=== PATIENT | female | born 1980 | race Caucasian/White ===

== ENCOUNTER 2017-03-13 13:59 | Inpatient (IN) ==
[2017-03-13 16:25] LABS: Amphetamine Screen,Urine Negative ng/mL (Cutoff=1000); Barbiturate Screen,Urine Negative ng/mL (Cutoff=200); Benzodiazepines Screen,Urine Negative ng/mL (Cutoff=200); Cannabinoid Screen,Urine Negative ng/mL (Cutoff = 50); Cocaine Screen,Urine Negative ng/mL (Cutoff= 300); Opiate Screen,Urine Negative ng/mL (Cutoff=300); Phencyclidine Screen,Urine Negative ng/mL (Cutoff=25)
[2017-03-13] MEDS ORDERED: 0.9 % Sodium Chloride 1,000 ML ONE (16:27)
[2017-03-13] MEDS: 0.9 % Sodium Chloride 1,000 ML IVC SCH (16:33)
[2017-03-13] MEDS ORDERED: Naloxone 0.4 MG/ML INJ IVP PRN (16:50)
[2017-03-13] MEDS ORDERED: *HR* Morphine 2 MG/ML SYRINGE IVP PRN (16:50)
[2017-03-13] MEDS ORDERED: Vancomycin 1,250 MG in D5% in Water 250 ML IVPB SCH (17:00)
--- NOTE | 2017-03-13 17:13 | Pulmonology Consult Note ---
Date of Encounter: 03/13/17 Time of Encounter: 17:11 Assessment and Plan (1) Abnormal CT scan, chest Current Visit: Yes Status: Acute Findings of the CT scan of the lower chest are highly suggestive of an consistent with septic emboli. More likely, this is due to skin portal of entry and given this patient's history, highly suspicious for IV drug abuse. Patient may also have bilateral complicated pleural effusions and/or eileen empyemas. I agree with the provision of broad-spectrum antimicrobial agents. Echocardiography and lower venous duplex studies ordered for further evaluation. The patient will likely require bilateral thoracenteses. If the patient continues to note back pain, dedicated MR of the spine may be necessary in order to exclude paraspinal abscesses or vertebral osteomyelitis. Continue all other supportive medical measures. Valery Merida [phone] Code(s): R93.8 - Abnormal findings on diagnostic imaging of other specified body structures SNOMED Code(s): 736377590 History of Present Illness Consult date: 03/13/17 Chief complaint: Cough, dyspnea, abnormal chest CT scan History of present illness: This 36-year-old female who swears that she does not utilize IV drugs but has a history of the same reportedly was found minimally responsive in the home setting, the etiology of the circumstances is entirely unclear. Nonetheless, she was brought to the hospital. Imaging studies were obtained predominantly of the abdomen and pelvis given complaints at the time of her admission to the hospital of back and abdominal pain. Imaging studies revealed bilateral pleural effusions which were concerning for possible empyema given the presence of air and multiple cavitary parenchymal lesions peripherally located within the lower lung zones highly suggestive of an consistent with septic emboli. Given these findings, pulmonary consultation was requested. Patient is extremely hard of hearing. She admits to cough, mild dyspnea, generalized fatigue, pain particularly in the back region (lower back) and leg weakness. She denies loss of sensation in her feet or legs. She denies hemoptysis. Past Med Surg Social Fam HX - Past Medical History Medical history: hepatitis Psychiatric history: anxiety, depression - Past Surgical History Surgical History: - Social History Smoking Status: Current every day smoker Smokeless Tobacco Status: No Alcohol use: none Drug use: none Medications and Allergies No Known Home Drugs 03/13/17 [History] Allergies No Known Allergies Allergy (Verified 05/05/15 15:19) All Systems: A 10-system review of systems was performed and is negative for pertinent findings except as documented above in the HPI. - Constitutional Constitutional: as per HPI - Respiratory Respiratory: as per HPI Physical Examination Vital Signs: Vital Signs, Last 4 Hours Pulse Resp BP 03/13/17 15:50 91 17 97/57 General appearance: no acute distress, other (Minimally Very hard of hearing Valeria vitals reviewed) Eyes: nonicteric ENT: oropharynx moist Neck: supple Auscultation: bilateral: diminished breath sounds Cardiovascular: regular rate and rhythm, murmur noted (Faint systolic murmur) Gastrointestinal: normoactive bowel sounds, non-distended Integumentary: other (Note multiple tattoos, areas of vitiligo over the face and upper chest region.) Extremities: no cyanosis, no edema normal mental status, non-focal exam Results - Clinical Findings Intake & Output: Intake & Output 03/13/17 03/13/17 03/13/17 07:59 15:59 23:59 Weight 77.2 kg Consult Discharge Plan - Plan Referrals: NO,PCP [Primary Care Provider] -
[2017-03-13] MEDS: Ketorolac 30 MG/ML VIAL IVP PRN (17:18)
--- NOTE | 2017-03-13 17:48 | Internal Med History&Physical ---
Date of Encounter: 03/13/17 Time of Encounter: 16:00 Assessment and Plan (1) Empyema Current visit: Yes Status: Acute Patient presented with fever, chills, generalized weakness, meets sepsis criteria. CT chest done in the emergency room shows bilateral loculated pleural effusion, possible empyema along with cavitary lesions suggestive of septic emboli. Patient denies history of IV drug abuse, although this is likely. Urine drug screen currently negative. Continue IV vancomycin and Zosyn. Follow-up blood cultures. Check 2-D echocardiogram for possible endocarditis. Pulmonology consulted, consult appreciated-agree with current management. Patient will likely require bilateral thoracentesis. High risk for complications including worsening sepsis and septic shock. (2) DVT (deep venous thrombosis) Current visit: Yes Status: Acute CT abdomen shows changes suggestive of possible right internal iliac vein thrombophlebitis/cellulitis. Will check venous Doppler of lower extremities to rule out DVT and CT angiogram of chest to evaluate for pulmonary embolism. Patient did receive a therapeutic dose of subcutaneous Lovenox in the emergency room. Qualifiers: DVT location: lower extremity Affected thrombotic vein of extremity: iliac Chronicity: acute Laterality: right Qualified Code(s): I82.421 - Acute embolism and thrombosis of right iliac vein (3) Back pain Current visit: Yes Status: Acute Patient has acute low back pain along with left leg weakness, which could be related to fracture subsequent to her mechanical fall. Need to rule out seeding /infectious etiology- paraspinal abscess/vertebral osteomyelitis. Check CT thoracic and lumbar spine. Pain control with when necessary IV Toradol and morphine. Qualifiers: Back pain location: low back pain Chronicity: acute Back pain laterality : midline Sciatica presence: without sciatica Qualified Code(s): M54.5 - Low back pain (4) Sepsis Current visit: Yes Status: Acute Patient presented with fever, tachycardia, leukocytosis with abnormal CT chest and possible bilateral empyema. IV hydration. Broad-spectrum IV antibiotics as above. Follow-up blood cultures. Lactic acid within normal limits. Qualifiers: Sepsis type: sepsis due to unspecified organism Qualified Code(s): A41.9 - Sepsis, unspecified organism (5) Hepatitis C Current visit: Yes Status: Chronic Liver enzymes noted to be mildly elevated. Check hepatitis profile. Treatment naive. Qualifiers: Viral hepatitis chronicity: chronic Hepatic coma status: without hepatic coma Qualified Code(s): B18.2 - Chronic viral hepatitis C Internal Medicine - H&P: HPI Chief complaint: Generalized weakness Admitted From: Emergency Dept Plans for Post Hospital Care: Transfer Inp Rehab Fac History of present illness: Ms. Silva is a 36 year old female with h/o- Hep C and remote IVDU was brought in by EMS with complaints of generalized weakness, fever and dehydration. Patient was evaluated at [facility] emergency room and was transferred to our facility for higher level of care. Patient reports having sustained a mechanical fall while at her mother's place, about 10 days ago and reports having subjective fever and chills for 10-12 days associated initially with nausea, vomiting. She also reports intermittent cough and she gradually became weaker and was unable to ambulate independently. She finally continued to stay in bed as she was too weak to get out of bed or call for help. She stayed this way for 2-3 days until her family had to break in and called EMS today. She has chronic hearing loss and left-sided facial weakness that is related to her multiple bilateral ear surgeries for cholesteatomas. She reports severe low back pain along with left leg weakness. No paresthesias, headache, blurred vision, arm weakness. She further denies IV drug abuse despite multiple enquiries; she did have h/o substance use in the past but has been sober for the last 5years. Patient reportedly was noted to be in extremely poor hygiene at the time of presentation with severe dehydration, dry mucous membranes, noted to be in dried -up feces per emergency room records. Past Med Surg Social Fam HX - Past Medical History Medical history: hepatitis (Hep C) Psychiatric history: anxiety, depression - Past Surgical History Surgical History: , cholecystectomy - Social History Smoking Status: Current every day smoker Packs per day: 1.5 Smokeless Tobacco Status: No Alcohol use: none Drug use: none, prescription drug abuse (Percocet) Occupational status: unemployed Current living situation: Home - Independent Activity Level: Independent ambulation Recent Out of Country Travel Within the Last 8 Weeks: No - Family History Father Hx Family Respiratory Disorders: Yes (DVT, PE) Internal Medicine - H&P: Meds No Known Home Drugs 03/13/17 [History] Allergies No Known Allergies Allergy (Verified 05/05/15 15:19) All Systems PM: A 10-system review of systems was performed and is negative for pertinent findings except as documented above in the HPI. - Constitutional Constitutional: chills, fever(s), malaise, weakness - EENT Eyes: no change in vision, no discharge, no pain, no photophobia Ears: decreased hearing Nose, mouth and throat: no dysphagia, no nasal discharge, no neck pain, no sore throat - Cardiovascular Cardiovascular ROS IM: chest pain - Respiratory Respiratory: dyspnea - Gastrointestinal Gastrointestinal: nausea, vomiting - Genitourinary Genitourinary: no change in urinary stream, no dysuria, no flank pain, no hematuria - Musculoskeletal Musculoskeletal ROS IM: no numbness, no tingling - Integumentary Integumentary IM: no rash, no unusual bruising - Neurological Neurological ROS: headache(s), numbness, weakness - Hematologic/Lymphatic Hematologic/Lymphatic: no easy bruising - Constitutional Vitals: Pulse Resp BP 91 17 97/57 03/13/17 15:50 03/13/17 15:50 03/13/17 15:50 General appearance: Present: A&O X 3, answers questions appropriately - Respiratory Respiratory exam: Present: CTAB (coarse breath sounds B/L bases). Absent: accessory muscle use, rales, rhonchi, wheezes - Cardiovascular Cardiovascular exam: Present: RRR, +S1, +S2. Absent: diastolic murmur, gallop, rubs, systolic murmur - GI/Abdominal GI/Abdominal exam: Present: normal bowel sounds, soft, no peritoneal signs. Absent: distended, tenderness - Extremities Exam Extremities exam: Present: full ROM (decreased in left LE due to weakness), warm , radial pulses palpable and symetrical. Absent: calf tenderness, cyanotic, pedal edema - Back Exam Back exam: Present: vertebral tenderness (point tenderness over lower thoracic/ upper lumbar area; no focal swelling/erythema) - Neurological Exam Neurological exam: Present: CN II-XII intact (left-sided facial weakness with partial ptosis), oriented X3, no focal deficits (left LE- 1-2/5 motor power), facial droop. Absent: pronater drift, speech deficit Additional comments: difficult to elicit deep tendon reflexes B/L - Skin Skin exam: Present: dry, intact Internal Med - H&P Results - EKG Data -: EKG Interpreted by Myself EKG shows normal: sinus rhythm Rate: normal
[2017-03-13] MEDS: Vancomycin 1,250 MG in D5% in Water 250 ML IVPB SCH (17:51)
[2017-03-13] MEDS: Acetaminophen 325 MG TABLET PO PRN (23:02)
[2017-03-14] MEDS ORDERED: 0.9 % Sodium Chloride 1,000 ML IVC ONE (04:13)
[2017-03-14] MEDS: 0.9 % Sodium Chloride 1,000 ML IVC SCH ×4 (04:20→23:34)
[2017-03-14] MEDS: Vancomycin 1,250 MG in D5% in Water 250 ML IVPB SCH ×2 (05:24→19:13)
[2017-03-14 06:47] LABS: Basophils % 0.1 %; Eosinophils # 0.1 K/mcL (0.0-0.6); Eosinophils % 0.2 %; Hematocrit 26.2 % (35.3-44.9); Hemoglobin 8.8 g/dL (11.5-15.4); Immature Granulocytes % 1.4 % (0-4); Lymphocytes # 0.6 K/mcL (0.6-4.6); Lymphocytes % 2.7 %; Mean Corpuscular HGB Conc 33.6 g/dL (31.6-35.5); Mean Corpuscular Hemoglobin 27.8 pg (28.0-33.3); Mean Corpuscular Volume 82.9 fL (83.0-100.0); Mean Platelet Volume 10.4 fL (9.4-12.4); Monocytes # 0.8 K/mcL (0.0-1.3); Monocytes % 3.8 %; Neutrophils # 18.4 K/mcL (1.6-8.9); Platelet Count 205 K/mcL (140-400); Red Blood Count 3.16 M/mcL (3.82-4.97); Red Cell Distribution Width 14.3 % (11.5-14.5); Segmented Neutrophils % 91.8 %
[2017-03-14 07:29] LABS: BUN/Creatinine Ratio 23 (6-26); Blood Urea Nitrogen 14 mg/dL (7-20); Calcium 7.3 mg/dL (8.6-10.8); Carbon Dioxide 20 mEq/L (19-29); Chloride 101 mEq/L (98-109); Glucose 60 mg/dL (70-99); Magnesium 1.9 mg/dL (1.6-2.6); Osmolality,Calculated 272 (280-300); Potassium 4.1 mEq/L (3.5-4.5); Sodium 132 mEq/L (136-145); eGFR For African Americans > 60 (> 60); eGFR For Non-African Americans > 60 (> 60)
[2017-03-14 07:30] LABS: Hepatitis A Antibody IgM Nonreactive (Nonreactive); Hepatitis B Core IgM Nonreactive (Nonreactive); Hepatitis B Surface Antigen Nonreactive (Nonreactive)
[2017-03-14] MEDS: Ketorolac 30 MG/ML VIAL IVP PRN (08:53)
[2017-03-14] MEDS ORDERED: *HR* OxyCODONE Immed Rel 5 MG TABLET PO PRN (08:58)
--- NOTE | 2017-03-14 11:49 | Pulmonology Progress Note ---
Date of Encounter: 03/14/17 Time of Encounter: 08:25 Assessment and Plan (1) Abnormal CT scan, chest Current Visit: Yes Status: Acute Findings from review of the chest CT scan which include multiple cavitary parenchymal lung nodules as well as bilateral pleural effusions in this patient with tricuspid valve vegetation are all likely manifestations of right-sided endocarditis. Blood cultures are pending. Be reasonable to perform thoracentesis and obviously, if the patient has evidence of empyema then she will require bilateral chest tube placement which could all be performed by interventional radiology. Adjust antibiotic therapy depending upon results of cultures. Management reviewed with the primary service. Valery Merida [phone] Code(s): R93.8 - Abnormal findings on diagnostic imaging of other specified body structures SNOMED Code(s): 784431398 Subjective Principal diagnosis: Abnormal chest CT scan Interval history: Patient notes persisting back chest pain. She notes persisting fatigue and malaise. She denies expectoration of bloody or purulent secretions. Overnight , no acute issues reported per discussion with nursing staff. Comprehensive systems review otherwise unremarkable except for those features as noted above. Objective PUL Vital signs: Last Vital Signs Temp 97.9 F 03/14/17 11:02 Pulse 74 03/14/17 11:02 Resp 15 03/14/17 11:02 BP 87/58 03/14/17 11:02 Pulse Ox 100 03/14/17 11:02 General appearance: no acute distress Eyes: nonicteric ENT: oropharynx moist Neck: no lymphadenopathy Auscultation: bilateral: diminished breath sounds Cardiovascular: murmur noted Gastrointestinal: normoactive bowel sounds, non-distended Integumentary: normal, other (Multiple tattoos vitiligo) Extremities: no cyanosis Musculoskeletal: no deformities normal mental status, non-focal exam Results - Laboratory Findings CBC and BMP: 03/14/17 05:23 03/14/17 05:23 Abnormal lab findings: Abnormal lab results WBC 20.1 K/mcL (4.3-11.1) H 03/14/17 05:23 RBC 3.16 M/mcL (3.82-4.97) L 03/14/17 05:23 Hgb 8.8 g/dL (11.5-15.4) L 03/14/17 05:23 Hct 26.2 % (35.3-44.9) L 03/14/17 05:23 MCV 82.9 fL (83.0-100.0) L 03/14/17 05:23 MCH 27.8 pg (28.0-33.3) L 03/14/17 05:23 Neutrophils # 18.4 K/mcL (1.6-8.9) H 03/14/17 05:23 Sodium 132 mEq/L (136-145) L 03/14/17 05:23 Glucose 60 mg/dL (70-99) L 03/14/17 05:23 Calculated Osmolality 272 (280-300) L 03/14/17 05:23 Calcium 7.3 mg/dL (8.6-10.8) L 03/14/17 05:23 - Clinical Findings Intake & Output: Intake & Output 03/13/17 03/14/17 03/14/17 23:59 07:59 15:59 Intake Total 250 / 250 1000 / 1000 720 / 720 Output Total 1100 / 1100 Balance 250 / 250 -100 / -100 720 / 720 Weight 78.5 kg Consult Discharge Plan - Plan Referrals: Afsaneh Worley, BREAD SLICER MACHINE [Advanced Practice Nurse] - 03/21/17 9:15 am (PLEASE TAKE WITH YOU TO YOUR APPOINTMENT A MONTH'S WORTH OF INCOME, THEY DO A SLIDING SCALE OF WHAT YOU WOULD HAVE TO PAY. PLEASE SHOW UP 20 MINS. EARLY FOR YOUR APPOINTMENT TO FILL OUT PAPER WORK. IF YOU NEED TO CANCEL PLEASE CALL [phone] WITH IN 24 HOURS OF YOUR APPOINTMENT TIME.)
--- NOTE | 2017-03-14 11:55 | Infectious Disease Consult ---
Date of Encounter: 03/14/17 Time of Encounter: 11:54 Infectious Disease HPI - Data of Consult Patient: new to practice Consult date: 03/14/17 Requesting Physician: Charmaine Schulz Primary Care Provider: PCP NO - Consult Narrative Reason for consult: loculated pleural effusions, lung cavitary lesions, septic emboli. History of present illness: Ms. Silva is a 36 year old female who was admitted to [facility] on 03/13/17 for Sepsis, and suspected septic emboli of the lungs. Ms. Silva is a 36 y.o. female who admits to a history of polysubstance abuse with most recent episode of IVDA 1-2 months ago with black tar heroin. Since admission her Tmax has been 99.9, however her temperature was 101.7 in the ER in [place]. She would also have a WBC count of 20.1 She would have tachycardia as high as 138 and hypotension with systolic blood pressure as low as 87 CC: Charmaine Schulz Past Med Surg Social Fam HX - Past Medical History Medical history: hepatitis (Hep C) Psychiatric history: anxiety, depression - Past Surgical History Surgical History: , cholecystectomy - Social History Smoking Status: Current every day smoker Packs per day: 1.5 Smokeless Tobacco Status: No Alcohol use: none Drug use: none, prescription drug abuse (Percocet) - Family History Father Hx Family Respiratory Disorders: Yes (DVT, PE) Infectious Disease-CN:Meds No Known Home Drugs 03/13/17 [History] Allergies No Known Allergies Allergy (Verified 05/05/15 15:19) Exam - Constitutional Vitals: Temp Pulse Resp BP Pulse Ox 97.9 F 74 15 87/58 100 03/14/17 11:02 03/14/17 11:02 03/14/17 11:02 03/14/17 11:02 03/14/17 11:02 Infectious Disease CN: Results - Labs CBC & Chem 7: 03/14/17 05:23 03/14/17 05:23 Serology: Serology 03/14/17 Range/Units 05:23 Hepatitis A IgM Ab Nonreactive (Nonreactive) Hep Bs Antigen Nonreactive (Nonreactive) Hep B Core IgM Ab Nonreactive (Nonreactive) Consult Discharge Plan - Plan Referrals: Afsaneh Worley, PHARMACEUTICAL SALES REPRESENTATIVE [Advanced Practice Nurse] - 03/21/17 9:15 am (PLEASE TAKE WITH YOU TO YOUR APPOINTMENT A MONTH'S WORTH OF INCOME, THEY DO A SLIDING SCALE OF WHAT YOU WOULD HAVE TO PAY. PLEASE SHOW UP 20 MINS. EARLY FOR YOUR APPOINTMENT TO FILL OUT PAPER WORK. IF YOU NEED TO CANCEL PLEASE CALL [phone] WITH IN 24 HOURS OF YOUR APPOINTMENT TIME.)
[2017-03-14 12:21] LABS: INR 1.9; Prothrombin Time 20.8 Seconds (9.4-12.1)
--- NOTE | 2017-03-14 13:46 | IR Procedure Note ---
Date of procedure: 03/14/17 Consent Obtained: Verbal consent Timeout: Correct patient and procedure verified, Correct site verified, Time out performed, Skin prep completed Local anesthetic: Lidocaine 1% Indications: Bilateral pleural effusions Procedure Performed: Right thoracentesis Complications: None; Tolerated procedure well (Left thoracentesis tomorrow.)
[2017-03-14] MEDS: Piperacillin/Tazobactam 3.375 GM in D5% in Water (Mini-Bag+) 100 ML IVPB SCH ×2 (14:25→22:05)
--- NOTE | 2017-03-14 14:50 | Infectious Disease Consult ---
Date of Encounter: 03/14/17 Time of Encounter: 14:43 Assessment and Plan (1) Severe sepsis Status: Acute Assessment and plan: The patient had four SIRS criteria plus hypotension and elevated liver enzymes on admission. Likely secondary to bacteremia and endocarditis. Improved. The patient has been afebrile since admission. She continues to have tachycardia and intermittent tachypnea. WBC is trending down. Blood cultures drawn 03/13/17 are positive 2/2 sets for MRSA. (2) Bacteremia Status: Acute Assessment and plan: Causative organism MRSA. Source likely IV drug use. Complicated due to septic emboli in the lungs. Blood cultures drawn 03/13/17 are positive 2/2 sets for MRSA per PCR. The patient has one major and two minor Modified Lares's Criteria. TTE completed 03/13/17 showed a mobile echodensity on the tricuspid valve consistent with vegetation. Repeat blood cultures x 2 sets in the morning. Continue Vancomycin IV. Pharmacy to dose. Goal trough ~15. Discontinue Zosyn. Duration of treatment depends on the clinical picture, but likely 6 weeks of IV antibiotics due to the endocarditis. Monitor renal function and for drug toxicity and dose-adjust antibiotics. (3) Infective endocarditis Status: Acute Assessment and plan: Causative organism MRSA. TTE completed 03/13/17 showed mobile echodensity on the tricuspid valve consistent with vegetation. Likely secondary to MRSA bacteremia. Antibiotic recommendations as above. Qualifiers: Infective endocarditis organism: bacterial Chronicity: acute Qualified Code(s): I33.0 - Acute and subacute infective endocarditis (4) Septic embolism Status: Acute Assessment and plan: CT scan of the chest shows bilateral pulmonary nodules with central cavitation concerning for septic emboli versus atypical infection. Pulmonology consulted and following. Feels that given the clinical picture, these nodules are likely septic emboli. Continue antibiotics as above. (5) Loculated pleural effusion Status: Acute Assessment and plan: CT of the chest shows a moderate right and small left pleural effusions that are partially loculated. IR consulted. Plan for right thoracentesis later today and left thoracentesis tomorrow. Please send pleural fluid for cell count with differential, anaerobic and aerobic cultures, protein, and LDH. Asked the IR nurse and the patient's primary nurse to both ensure the specimen is sent down for analysis. Pulmonology consulted and following. (6) Myositis Status: Acute Assessment and plan: Location: Right piriformis muscle. CT of the abdomen and pelvis shows right piriformis myositis. Continue antibiotics as above. Qualifiers: Myositis type: infective Myositis location: other site Qualified Code(s) : M60.08 - Infective myositis, other site (7) Elevated transaminase level Status: Acute Assessment and plan: Etiology unclear: Chronic Hep C. vs. acute infection vs. other. Continue to trend. Consider GI consult for further evaluation. (8) Back pain Status: Acute Assessment and plan: Likely secondary to right piriformis myositis. C-spine and L-spine CT scans negative for abscess. Pain management per the primary team. Qualifiers: Back pain location: low back pain Chronicity: acute Back pain laterality : midline Sciatica presence: without sciatica Qualified Code(s): M54.5 - Low back pain (9) Hepatitis C Status: Chronic Qualifiers: Viral hepatitis chronicity: chronic Hepatic coma status: without hepatic coma Qualified Code(s): B18.2 - Chronic viral hepatitis C (10) IV drug user Status: Chronic Assessment and plan: Check HIV. Known Hep C positive. Hep A and Hep B non-reactive. Infectious Disease HPI - Data of Consult Patient: new to practice Consult date: 03/14/17 Requesting Physician: Charmaine Schulz Primary Care Provider: PCP NO - Consult Narrative Reason for consult: MRSA bacteremia History of present illness: Ms. Silva is a 36 year old female with past medical history of hep C, anxiety , and depression. The patient was admitted to the hospital March 13 for empyema, pulmonary abscess, and sepsis. We are consulted March 14 for further evaluation and treatment recommendations regarding MRSA bacteremia. Patient is a 36-year-old female with past medical history as stated above. The patient presented to the emergency department at [facility] after she called EMS with complaints of fever and severe back pain and weakness for about 2 weeks prior to admission that had continued to get worse. Upon arrival, the patient had a fever 101.7. She was tachycardic and tachypneic and have leukocytosis with neutrophilic predominance. Additional laboratory studies revealed elevated bilirubin at 2.3 with mildly elevated liver enzymes. Lactic acid was normal. A chest x-ray completed in the emergency department showed bilateral lung infiltrates with suspected bilateral pleural effusions. A CT the abdomen and pelvis was also completed that showed bibasilar cavitary pulmonary nodules, more prominent on the left concerning for septic emboli, moderate loculated right effusion, and mild left loculated effusion consistent with empyema. Her also findings consistent with right piriformis myositis and a right hemipelvic soft tissue induration concerning for cellulitis or possible internal iliac vein DVT with thrombophlebitis. A dedicated CT of the chest was completed that was negative for pulmonary embolism, but did show bilateral pulmonary nodules with central cavitation concerning for septic emboli versus atypical infection such as tuberculosis. Additionally, there was a moderate right and small left pleural effusion that appears to be partially loculated. Blood cultures were obtained in the emergency department prior to the initiation of IV antibiotics. Additionally, urinalysis was obtained that revealed pyuria, but her urine culture was negative. The patient was transferred here to [facility] for further evaluation and treatment. Since admission, the patient has undergone bilateral lower extremity venous Dopplers that were negative for DVT. Her blood cultures have come back + 2 out of 2 sets for MRSA per PCR. The patient has been complaining of lower back pain, therefore, dedicated L-spine and C-spine CAT scans were done and were negative for any infectious etiology. Transthoracic echocardiogram revealed a mobile echodensity on the tricuspid valve consistent with a vegetation. Pulmonology has been consulted and is following. The patient is scheduled for thoracentesis later today. Since admission, the patient's white blood cell count started trending down. She has been afebrile, but continues to have tachycardia. Lactic acid remains normal. Hepatitis A and B profiles are nonreactive. The patient does state that she doesn't feel much better overall. Currently, the patient is on IV vancomycin and IV Zosyn. We've been asked to evaluate and make further recommendations. During my exam today, the patient endorses a history as stated above. She states that over the past 2 weeks she is progressively had worsening weakness to the point where she couldn't get out of bed, back pain, and fevers with chills, rigors, night sweats. She reports poor appetite and states she didn't eat or drink anything for about 4 days. She denies any chest pain, but does report some shortness of breath and a dry cough. She denies any nausea, vomiting , diarrhea, or constipation. She denies abdominal pain. She claims of pain in the middle to right side of her lower back that is nonradiating. She denies pain anywhere other joints. She denies oral thrush or any skin lesions. She his report a history of IV drug use, but states that she is not been on any IV drugs for several months. CC: Charmaine Schulz Past Med Surg Social Fam HX - Past Medical History Attestation: Yes The following information was validated with the patient. Source: patient, old records reviewed, nursing notes reviewed Medical history: hepatitis (Hep C) Psychiatric history: anxiety, depression - Past Surgical History Surgical History: , cholecystectomy - Social History Smoking Status: Current every day smoker Packs per day: 1.5 Smokeless Tobacco Status: No Alcohol use: none Drug use: none, prescription drug abuse (Percocet) Occupational status: unemployed Current living situation: Home - Independent Activity Level: Independent ambulation Recent Out of Country Travel Within the Last 8 Weeks: No Exposure or Possible Exposure to Illness During Travel: No - Family History Father Hx Family Respiratory Disorders: Yes (DVT, PE) Infectious Disease-CN:Meds No Known Home Drugs 03/13/17 [History] Allergies No Known Allergies Allergy (Verified 05/05/15 15:19) All systems: reviewed and no additional remarkable complaints except as stated Exam - Constitutional Vitals: Temp Pulse Resp BP Pulse Ox 97.9 F 72 15 87/58 100 03/14/17 11:02 03/14/17 11:42 03/14/17 11:02 03/14/17 11:02 03/14/17 11:02 General appearance: average body habitus, cooperative, no acute distress Exam: Ill-appearing, but nontoxic. - Head Head exam: Present: atraumatic, normal inspection, normocephalic - Eye Eye exam: Present: EOMI, normal appearance, PERRL Pupils: Present: normal accommodation Additional comments: No subconjunctival hemorrhage noted. - ENT ENT exam: Present: mucous membranes moist - Neck Neck exam: Present: normal inspection - Respiratory Respiratory exam: Present: decreased breath sounds (I lateral bases), CTAB. Absent: rales, respiratory distress, rhonchi, wheezes - Cardiovascular Cardiovascular exam: Present: +S1, +S2, tachycardia. Absent: diastolic murmur, irregular rhythm, systolic murmur - GI/Abdominal GI/Abdominal exam: Present: normal bowel sounds, soft. Absent: distended, tenderness - Extremities Exam Extremities exam: Present: normal inspection. Absent: joint swelling, pedal edema, tenderness Additional comments: No endocarditis stigmata noted. - Back Exam Back exam: Present: normal inspection, paraspinal tenderness (Right lumbar spine ). Absent: vertebral tenderness - Neurological Exam Neurological exam: Present: alert, oriented X3, no focal deficits - Psychiatric Psychiatric exam: Present: normal affect, normal mood - Skin Skin exam: Present: dry, intact, normal color, warm Infectious Disease CN: Results - Labs CBC & Chem 7: 03/14/17 05:23 03/14/17 05:23 Serology: Serology 03/14/17 Range/Units 05:23 Hepatitis A IgM Ab Nonreactive (Nonreactive) Hep Bs Antigen Nonreactive (Nonreactive) Hep B Core IgM Ab Nonreactive (Nonreactive) Consult Discharge Plan - Plan Referrals: Afsaneh Worley CNP [Advanced Practice Nurse] - 03/21/17 9:15 am (PLEASE TAKE WITH YOU TO YOUR APPOINTMENT A MONTH'S WORTH OF INCOME, THEY DO A SLIDING SCALE OF WHAT YOU WOULD HAVE TO PAY. PLEASE SHOW UP 20 MINS. EARLY FOR YOUR APPOINTMENT TO FILL OUT PAPER WORK. IF YOU NEED TO CANCEL PLEASE CALL [phone] WITH IN 24 HOURS OF YOUR APPOINTMENT TIME.) - Attending Attestation I examined this patient and my medical decision-making was reviewed with the Resident Physician. I agree with the documented findings, disposition and treatment plan as described except to the extent set forth below. This is an addendum to original report dictated by Shira Sawyer CNP, please refer to Bettie sanabria for full detail. Patient is a 36-year-old woman with past medical history mentioned below was admitted with altered mental status and severe sepsis. Workup revealed MRSA bacteremia. A CT of the chest showed multiple septic emboli to the chest. Patient also had bilateral pleural effusion that was tapped it. Patient was also found to have myositis of the right piriformis muscle. A TTE was done and showed a mobile echodensity on the tricuspid valve consistent with vegetation. We were consulted to evaluate the patients make further recommendations. Patient has been on vancomycin. Today patient appears ill. Toxic laying in bed but awake and alert and oriented. 400 and endocarditis on the aortic valve likely causative organism is MRSA we will need to treat with vancomycin for at least 6 weeks. Once blood cultures clear patient will need a PICC line placement. While on vancomycin we will need to do weekly CBC, BMP and vancomycin trough. Goal vancomycin trough 15-20. Well continue to follow closely.
[2017-03-14] MEDS ORDERED: *HR* Dextrose 50 % in Water (Syg) 50 ML SYRINGE IVP PRN (14:55)
[2017-03-14] MEDS ORDERED: D5% in Water 1,000 ML IVC PRN (14:55)
[2017-03-14] MEDS ORDERED: Dextrose Gel 15 GM PO PRN ×2 (14:55)
[2017-03-14] MEDS ORDERED: *HR* Heparin 5,000 UNIT/ML VIAL SQ SCH (16:00)
--- NOTE | 2017-03-14 16:43 | Internal Med Progress Note ---
Date of Encounter: 03/14/17 Time of Encounter: 08:15 - Assessment and plan (1) Severe sepsis Current Visit: Yes Status: Acute Assessment and plan: 36-year-old female with past medical history hepatitis C, mood disorder and prior use of IV drugs. Per patient, she has not use drugs in several years. She presented with generalized weakness. CT chest showed moderate right and small left pleural effusion, appeared to be partially loculated. Cardiac revealed a mobile echodensity on the tricuspid valve consistent with vegetation. Blood cultures are positive for GPC, PCR shows MRSA. CT of the abdomen and pelvis revealed a right piriformis muscle myositis. Source is infective endocarditis, MRSA bacteremia, located pleural effusion, myositis. Appreciate pulmonology and ID input. Plan for thoracentesis today. Continue empiric antibiotics with IV vancomycin. Continue IV fluid hydration. Repeat blood cultures in the morning. (2) Septic embolism Current Visit: Yes Status: Acute Assessment and plan: Plan as above. (3) Infective endocarditis Current Visit: Yes Status: Acute Assessment and plan: Plan as above. Qualifiers: Infective endocarditis organism: bacterial Chronicity: acute Qualified Code(s): I33.0 - Acute and subacute infective endocarditis (4) Bacteremia Current Visit: Yes Status: Acute Assessment and plan: Plan as above. (5) Loculated pleural effusion Current Visit: Yes Status: Acute Assessment and plan: Plan as above. (6) Elevated transaminase level Current Visit: Yes Status: Acute Assessment and plan: Secondary to severe sepsis. Closed monitor LFTs. (7) Myositis Current Visit: Yes Status: Acute Assessment and plan: Right piriform muscle myositis. As above. Qualifiers: Myositis type: infective Myositis location: other site Qualified Code(s) : M60.08 - Infective myositis, other site (8) DVT (deep venous thrombosis) Current Visit: Yes Status: Acute Assessment and plan: CT of the abdomen and pelvis revealed suspected internal iliac vein thrombophlebitis. Start Lovenox. Qualifiers: DVT location: lower extremity Affected thrombotic vein of extremity: iliac Chronicity: acute Laterality: right Qualified Code(s): I82.421 - Acute embolism and thrombosis of right iliac vein (9) IV drug user Current Visit: Yes Status: Chronic Assessment and plan: Check HIV. (10) Hepatitis C Current Visit: Yes Status: Chronic Qualifiers: Viral hepatitis chronicity: chronic Hepatic coma status: without hepatic coma Qualified Code(s): B18.2 - Chronic viral hepatitis C - Subjective Interval history: Patient reports pain all over. - Constitutional Vitals: Temp Pulse Resp BP Pulse Ox 97.4 F L 86 16 92/59 94 03/14/17 15:17 03/14/17 15:17 03/14/17 15:17 03/14/17 15:17 03/14/17 15:17 General appearance: Present: A&O X 3, answers questions appropriately - Respiratory Respiratory exam: Present: decreased breath sounds (At lower lung bases.) - Cardiovascular Cardiovascular exam: Present: RRR - GI/Abdominal GI/Abdominal exam: Present: normal bowel sounds, soft. Absent: distended, tenderness - Extremities Exam Extremities exam: Absent: pedal edema - Back Exam Back exam: Present: paraspinal tenderness - Neurological Exam Neurological exam: Present: alert, oriented X3, no focal deficits, strengths equal and symetr throughout. Absent: facial droop, speech deficit Internal Medicine: Result - Labs CBC & Chem 7: 03/14/17 05:23 03/14/17 05:23 Labs: Short CBC 03/14/17 Range/Units 05:23 WBC 20.1 H (4.3-11.1) K/mcL Hgb 8.8 L (11.5-15.4) g/dL Hct 26.2 L (35.3-44.9) % Plt Count 205 (140-400) K/mcL Neutrophils # 18.4 H (1.6-8.9) K/mcL BMP 03/14/17 05:23 Sodium 132 L Potassium 4.1 Chloride 101 Carbon Dioxide 20 BUN 14 Creatinine 0.62 Glucose 60 L Calcium 7.3 L Cardiac Enzymes 03/13/17 03/14/17 03/14/17 Range/Units 17:07 01:10 05:23 Troponin I 0.00 0.01 0.01 (0-0.03) ng/mL - ABG Interpretation ABG results: PT/INR, D-dimer PT 20.8 Seconds (9.4-12.1) H 03/14/17 06:45 - Impressions Impressions Chest CTA 03/13/17 19:00 IMPRESSION: 1. No evidence of pulmonary thromboembolism. 2. Numerous scattered bilateral pulmonary nodules many of which demonstrate central cavitation. The differential includes septic pulmonary emboli and atypical infection such as tuberculosis. Cavitary metastatic disease is considered less likely given the patient's age. 3. Moderate right and small left pleural effusions that may be partially loculated with empyema not excluded. D/ / Alex Medrano MD / Alex Medrano MD Interpreting Provider: Alex Medrano MD Lumbar Spine CT 03/13/17 19:00 IMPRESSION: There is an old left L2 transverse process fracture. Fracture deformity of the left L3 transverse process is noted as well. The without callus formation, the possibility of an acute fracture at this level should be considered. No additional acute osseous abnormality noted Soft tissues and canal limited due to images presented on PACs in the bone algorithm only. D/ / Kem Hodgson / Kem Hodgson Interpreting Provider: Kem Hodgson Thoracic Spine CT 03/13/17 19:00 IMPRESSION: Unremarkable CT of the thoracic spine. D/ / Jose L Fonseca MD / Jose L Fonseca MD Interpreting Provider: Jose L Fonseca MD Thoracentesis Ultrasound 03/14/17 09:59 IMPRESSION: 1. Successful ultrasound guided right thoracentesis. D/ / Perry Corbett MD / Perry Corbett MD Interpreting Provider: Perry Corbett MD Chest X-Ray 03/14/17 13:48 IMPRESSION: 1. No pneumothorax. 2. Unchanged bilateral pulmonary nodular opacities and pleural effusions. D/ / Alex Medrano MD / Alex Medrano MD Interpreting Provider: Alex Medrano MD Consult Discharge Plan - Plan Referrals: Afsaneh Worley, FIRE EQUIPMENT OPERATOR [Advanced Practice Nurse] - 03/21/17 9:15 am (PLEASE TAKE WITH YOU TO YOUR APPOINTMENT A MONTH'S WORTH OF INCOME, THEY DO A SLIDING SCALE OF WHAT YOU WOULD HAVE TO PAY. PLEASE SHOW UP 20 MINS. EARLY FOR YOUR APPOINTMENT TO FILL OUT PAPER WORK. IF YOU NEED TO CANCEL PLEASE CALL [phone] WITH IN 24 HOURS OF YOUR APPOINTMENT TIME.)
[2017-03-14] MEDS: *HR* Enoxaparin 80 MG/0.8 ML SYRINGE SQ SCH (17:14)
[2017-03-14] MEDS: *HR* OxyCODONE Immed Rel 5 MG TABLET PO PRN (17:14)
[2017-03-14] MEDS: Acetaminophen 325 MG TABLET PO PRN (20:01)
[2017-03-14] MEDS ORDERED: *HR* LORazepam 2 MG/ML VIAL IVP ONE (20:16)
[2017-03-14] MEDS ORDERED: *HR* LORazepam 2 MG/ML VIAL ONE (20:23)
[2017-03-15] MEDS: *HR* OxyCODONE Immed Rel 5 MG TABLET PO PRN ×2 (04:04→12:24)
[2017-03-15] MEDS: Vancomycin 1,500 MG in D5% in Water 250 ML IVPB SCH ×2 (05:53→17:35)
[2017-03-15] MEDS: Acetaminophen 325 MG TABLET PO PRN ×3 (05:54→22:34)
[2017-03-15] MEDS: Piperacillin/Tazobactam 3.375 GM in D5% in Water (Mini-Bag+) 100 ML IVPB SCH (05:54)
[2017-03-15] MEDS: *HR* Enoxaparin 80 MG/0.8 ML SYRINGE SQ SCH ×2 (05:54→17:35)
[2017-03-15 06:53] LABS: Alanine Aminotransferase 62 Units/L (0-55); Albumin/Globulin Ratio 0.3 (1.1-2.2); Alkaline Phosphatase 213 Units/L (38-126); Aspartate Amino Transferase 97 Units/L (5-34); BUN/Creatinine Ratio 24 (6-26); Bilirubin,Direct 0.8 mg/dL (0.0-0.5); Bilirubin,Indirect 0.3 mg/dL (0.0-1.2); Bilirubin,Total 1.1 mg/dL (0.2-1.2); Blood Urea Nitrogen 13 mg/dL (7-20); Calcium 7.5 mg/dL (8.6-10.8); Carbon Dioxide 27 mEq/L (19-29); Chloride 102 mEq/L (98-109); Globulin 4.3 g/dL (2.4-3.5); Glucose 90 mg/dL (70-99); Osmolality,Calculated 274 (280-300); Phosphorous 2.6 mg/dL (2.3-4.7); Potassium 3.5 mEq/L (3.5-4.5); Sodium 132 mEq/L (136-145); Total Protein 5.5 g/dL (6.0-8.3); eGFR For African Americans > 60 (> 60); eGFR For Non-African Americans > 60 (> 60)
[2017-03-15 06:56] LABS: Albumin 1.2 g/dL (3.5-5.0)
[2017-03-15 06:57] LABS: Hematocrit 24.9 % (35.3-44.9); Hemoglobin 8.2 g/dL (11.5-15.4); Mean Corpuscular HGB Conc 32.9 g/dL (31.6-35.5); Mean Corpuscular Hemoglobin 27.8 pg (28.0-33.3); Mean Corpuscular Volume 84.4 fL (83.0-100.0); Mean Platelet Volume 10.8 fL (9.4-12.4); Platelet Count 227 K/mcL (140-400); Red Blood Count 2.95 M/mcL (3.82-4.97); Red Cell Distribution Width 14.6 % (11.5-14.5)
[2017-03-15 08:10] LABS: Lymphocytes # 2.3 K/mcL (0.6-4.6); Neutrophils # 26.1 K/mcL (1.6-8.9); Platelet Estimate Normal (Normal)
[2017-03-15 08:11] LABS: Burr Cells 1+ (Not Present); Toxic Granulation Present (Not Present)
[2017-03-15] MEDS: 0.9 % Sodium Chloride 1,000 ML IVC SCH (11:11)
--- NOTE | 2017-03-15 11:46 | Infectious Disease Progress No ---
Date of Encounter: 03/15/17 Time of Encounter: 11:44 - Assessment and Plan (1) Severe sepsis Current Visit: Yes Status: Acute The patient had four SIRS criteria plus hypotension and elevated liver enzymes on admission. Likely secondary to bacteremia and endocarditis. She was afebrile last night with Tmax 102.7. She continues to have tachycardia and intermittent tachypnea. WBC is worse this morning. Blood cultures drawn 03/13/17 are positive 2/2 sets for MRSA. Repeat blood cultures drawn this morning are pending x 2 sets. (2) Bacteremia Current Visit: Yes Status: Acute Causative organism MRSA. Source likely IV drug use. Complicated due to septic emboli in the lungs. Blood cultures drawn 03/13/17 are positive 2/2 sets for MRSA per PCR. The patient has two major and two minor Modified Lares's Criteria. TTE completed 03/13/17 showed a mobile echodensity on the tricuspid valve consistent with vegetation. Repeat blood cultures x 2 sets this morning are pending. Continue Vancomycin IV. Pharmacy to dose. Goal trough ~15. Most recent vanc trough 10.9. Will request pharmacy assist with dosing. Duration of treatment depends on the clinical picture, but likely 6 weeks of IV antibiotics due to the endocarditis. Monitor renal function and for drug toxicity and dose-adjust antibiotics. (3) Infective endocarditis Current Visit: Yes Status: Acute Causative organism MRSA. TTE completed 03/13/17 showed mobile echodensity on the tricuspid valve consistent with vegetation. Likely secondary to MRSA bacteremia. Antibiotic recommendations as above. Qualifiers: Infective endocarditis organism: bacterial Chronicity: acute Qualified Code(s): I33.0 - Acute and subacute infective endocarditis (4) Septic embolism Current Visit: Yes Status: Acute CT scan of the chest shows bilateral pulmonary nodules with central cavitation concerning for septic emboli versus atypical infection. Pulmonology consulted and following. Feels that given the clinical picture, these nodules are likely septic emboli. Continue antibiotics as above. (5) Loculated pleural effusion Current Visit: Yes Status: Acute CT of the chest shows a moderate right and small left pleural effusions that are partially loculated. IR consulted. Status post right thoracentesis 03/14/17. 450ml red fluid drained per IR nurse notes. Please send pleural fluid for cell count with differential , anaerobic and aerobic cultures, protein, and LDH --> orders in, but not marked that the specimen was received. Called Oscar in [facility] who states he does have the specimen and will go ahead and run it now. Left thoracentesis cancelled due to the fact that it is very small. Pulmonology consulted and following. (6) Myositis Current Visit: Yes Status: Acute Location: Right piriformis muscle. CT of the abdomen and pelvis shows right piriformis myositis. Continue antibiotics as above. Qualifiers: Myositis type: infective Myositis location: other site Qualified Code(s) : M60.08 - Infective myositis, other site (7) Elevated transaminase level Current Visit: Yes Status: Acute Etiology unclear: Chronic Hep C. vs. acute infection vs. other. Continue to trend. Consider GI consult for further evaluation. (8) Back pain Current Visit: Yes Status: Acute Likely secondary to right piriformis myositis. C-spine and L-spine CT scans negative for abscess. Patient continues to complain of severe pain that makes it difficult for her to get out of bed or move. Get MRI of the L-spine to evaluate. Pain management per the primary team. Qualifiers: Back pain location: low back pain Chronicity: acute Back pain laterality : midline Sciatica presence: without sciatica Qualified Code(s): M54.5 - Low back pain (9) Hepatitis C Current Visit: Yes Status: Chronic Qualifiers: Viral hepatitis chronicity: chronic Hepatic coma status: without hepatic coma Qualified Code(s): B18.2 - Chronic viral hepatitis C (10) IV drug user Current Visit: Yes Status: Chronic Check HIV --> ordered yesterday but not ran. Discussed with lab personnel. Known Hep C positive. Hep A and Hep B non-reactive. - Subjective Interval history: Patient seen and examined. No acute events noted overnight. Patient states that overall she feels pretty poorly. She reports fevers and chills and rigors overnight. She denies any headache or neck pain. She denies any chest pain, shortness of breath, or cough. She denies any nausea, vomiting, diarrhea, or constipation. She denies abdominal pain and states she was able eat breakfast this morning. She denies any urinary complaints and has a Bernard catheter remains patent. Her only real complaint is severe bilateral lower back pain that makes it difficult for her to get comfortable in bed. She denies any oral thrush or new skin lesions. Infect Dis PN-Objective Data - Labs CBC & Chem 7: 03/15/17 05:47 03/15/17 05:47 Labs: Laboratory Results - last 24 hr 03/14/17 03/14/17 03/15/17 06:45 17:31 05:47 WBC 28.4 H RBC 2.95 L Hgb 8.2 L Hct 24.9 L MCV 84.4 MCH 27.8 L MCHC 32.9 RDW 14.6 H Plt Count 227 MPV 10.8 Seg Neutrophils % 82.0 Band Neutrophils % 10.0 H Lymphocytes % 8.0 Neutrophils # 26.1 H Lymphocytes # 2.3 Toxic Granulation Present A Platelet Estimate Normal Rew Cells 1+ A PT 20.8 H INR 1.9 Sodium Potassium Chloride Carbon Dioxide BUN Creatinine Est GFR ( Amer) Est GFR (Non-Af Amer) BUN/Creatinine Ratio Glucose Calculated Osmolality Calcium Phosphorus Total Bilirubin Direct Bilirubin Indirect Bilirubin AST ALT Alkaline Phosphatase Serum Total Protein Albumin Globulin Albumin/Globulin Ratio Vancomycin Trough 10.9 03/15/17 05:47 WBC RBC Hgb Hct MCV MCH MCHC RDW Plt Count MPV Seg Neutrophils % Band Neutrophils % Lymphocytes % Neutrophils # Lymphocytes # Toxic Granulation Platelet Estimate Milagro Cells PT INR Sodium 132 L Potassium 3.5 Chloride 102 Carbon Dioxide 27 BUN 13 Creatinine 0.55 L Est GFR ( Amer) > 60 Est GFR (Non-Af Amer) > 60 BUN/Creatinine Ratio 24 Glucose 90 Calculated Osmolality 274 L Calcium 7.5 L Phosphorus 2.6 Total Bilirubin 1.1 D Direct Bilirubin 0.8 H Indirect Bilirubin 0.3 AST 97 H ALT 62 H Alkaline Phosphatase 213 H Serum Total Protein 5.5 L D Albumin 1.2 L Globulin 4.3 H Albumin/Globulin Ratio 0.3 L Vancomycin Trough Cultures: Serology 03/14/17 Range/Units 05:23 Hepatitis A IgM Ab Nonreactive (Nonreactive) Hep Bs Antigen Nonreactive (Nonreactive) Hep B Core IgM Ab Nonreactive (Nonreactive) - Impressions Impressions Thoracentesis Ultrasound 03/14/17 09:59 IMPRESSION: 1. Successful ultrasound guided right thoracentesis. D/ / Perry Corbett MD / Perry Corbett MD Interpreting Provider: Perry Corbett MD Chest X-Ray 03/14/17 13:48 IMPRESSION: 1. No pneumothorax. 2. Unchanged bilateral pulmonary nodular opacities and pleural effusions. D/ / Alex Medrano MD / Alex Medrano MD Interpreting Provider: Alex Medrano MD Exam - Constitutional Vitals: Temp Pulse Resp BP Pulse Ox 98.2 F 116 18 102/56 96 03/15/17 07:18 03/15/17 07:18 03/15/17 07:18 03/15/17 07:18 03/15/17 07:18 General appearance: average body habitus, cooperative, no acute distress - Head Head exam: Present: atraumatic, normal inspection, normocephalic Additional comments: Ill-appearing, but not toxic. - Eye Eye exam: Present: EOMI, normal appearance, PERRL Pupils: Present: normal accommodation Additional comments: No subconjunctival hemorrhage noted. - ENT ENT exam: Present: mucous membranes moist - Neck Neck exam: Present: normal inspection - Respiratory Respiratory exam: Present: CTAB. Absent: rales, respiratory distress, rhonchi, wheezes - Cardiovascular Cardiovascular exam: Present: +S1, +S2, tachycardia - GI/Abdominal GI/Abdominal exam: Present: normal bowel sounds, soft. Absent: distended, tenderness Additional comments: Bernard catheter noted to be patent draining dark yellow urine. - Extremities Exam Extremities exam: Present: normal inspection. Absent: joint swelling, pedal edema, tenderness Additional comments: No endocarditis stigmata noted. - Back Exam Additional comments: Patient declined back exam due to severe pain with movement. - Neurological Exam Neurological exam: Present: alert, oriented X3, no focal deficits - Psychiatric Psychiatric exam: Present: normal affect, normal mood - Skin Skin exam: Present: dry, intact, normal color, warm Consult Discharge Plan - Plan Referrals: Afsaneh Worley, QUALITY REP [Advanced Practice Nurse] - 03/21/17 9:15 am (PLEASE TAKE WITH YOU TO YOUR APPOINTMENT A MONTH'S WORTH OF INCOME, THEY DO A SLIDING SCALE OF WHAT YOU WOULD HAVE TO PAY. PLEASE SHOW UP 20 MINS. EARLY FOR YOUR APPOINTMENT TO FILL OUT PAPER WORK. IF YOU NEED TO CANCEL PLEASE CALL [phone] WITH IN 24 HOURS OF YOUR APPOINTMENT TIME.) - Attending Attestation I examined this patient and my medical decision-making was reviewed with the Resident Physician. I agree with the documented findings, disposition and treatment plan as described except to the extent set forth below.
[2017-03-15 12:33] LABS: Appearance of Pleural Fl Bloody (Clear)
[2017-03-15 12:37] LABS: LDH,Pleural Fluid 1016 Units/L (No Ref Range)
[2017-03-15 12:38] LABS: Total Protein,Pleural Fluid 3.3 g/dL (No Ref Range)
[2017-03-15 12:56] LABS: RBC,Pleural Fluid 0.091 M/mcL
[2017-03-15] MEDS: Ketorolac 30 MG/ML VIAL IVP PRN (13:59)
[2017-03-15 15:32] LABS: Hepatitis C Virus Antibody Reactive (Nonreactive)
--- NOTE | 2017-03-15 18:21 | Internal Med Progress Note ---
Date of Encounter: 03/15/17 Time of Encounter: 10:30 - Assessment and plan (1) Severe sepsis Current Visit: Yes Status: Acute Assessment and plan: 36-year-old female with past medical history hepatitis C, mood disorder and prior use of IV drugs. Per patient, she has not use drugs in several years. She presented with generalized weakness. CT chest showed moderate right and small left pleural effusion, appeared to be partially loculated. Cardiac revealed a mobile echodensity on the tricuspid valve consistent with vegetation. 03/13: Blood cultures are positive for GPC, PCR shows MRSA. CT of the abdomen and pelvis revealed a right piriformis muscle myositis. Source is infective endocarditis, MRSA bacteremia, located pleural effusion, myositis. 03/14: Patient underwent right-sided thoracentesis with removal of 450 ml of exudative pleural fluid. preliminary stain shows no bacteria. 03/15: blood cultures taken. sepsis has not resolved. febrile at 8pm (temp 102). WBC trended up to 28. Appreciate pulmonology and ID input. Continue empiric antibiotics with IV vancomycin. Continue IV fluid hydration. (2) Septic embolism Current Visit: Yes Status: Acute Assessment and plan: Plan as above. (3) Infective endocarditis Current Visit: Yes Status: Acute Assessment and plan: Plan as above. Qualifiers: Infective endocarditis organism: bacterial Chronicity: acute Qualified Code(s): I33.0 - Acute and subacute infective endocarditis (4) Bacteremia Current Visit: Yes Status: Acute Assessment and plan: Plan as above. (5) Loculated pleural effusion Current Visit: Yes Status: Acute Assessment and plan: Plan as above. (6) Elevated transaminase level Current Visit: Yes Status: Acute Assessment and plan: Secondary to severe sepsis. Closed monitor LFTs. (7) Myositis Current Visit: Yes Status: Acute Assessment and plan: Right piriform muscle myositis. As above. Qualifiers: Myositis type: infective Myositis location: other site Qualified Code(s) : M60.08 - Infective myositis, other site (8) DVT (deep venous thrombosis) Current Visit: Yes Status: Acute Assessment and plan: CT of the abdomen and pelvis revealed suspected internal iliac vein thrombophlebitis. Start Lovenox. Qualifiers: DVT location: lower extremity Affected thrombotic vein of extremity: iliac Chronicity: acute Laterality: right Qualified Code(s): I82.421 - Acute embolism and thrombosis of right iliac vein (9) IV drug user Current Visit: Yes Status: Chronic Assessment and plan: Check HIV. (10) Hepatitis C Current Visit: Yes Status: Chronic Qualifiers: Viral hepatitis chronicity: chronic Hepatic coma status: without hepatic coma Qualified Code(s): B18.2 - Chronic viral hepatitis C (11) Back pain Current Visit: Yes Status: Acute Assessment and plan: complained of severe back pain to ID team. MR lumbar spine to check for epidural abscess. Qualifiers: Back pain location: low back pain Chronicity: acute Back pain laterality : midline Sciatica presence: without sciatica Qualified Code(s): M54.5 - Low back pain - Subjective Interval history: Patient complains of pain on her site of thoracentesis. - Constitutional Vitals: Temp Pulse Resp BP Pulse Ox 97.5 F L 102 20 98/64 93 03/15/17 16:30 03/15/17 16:30 03/15/17 16:30 03/15/17 16:30 03/15/17 16:30 General appearance: Present: cooperative, A&O X 3, pleasant, no acute distress, answers questions appropriately - Respiratory Respiratory exam: Present: decreased breath sounds (at lower lung bases) - Cardiovascular Cardiovascular exam: Present: tachycardia - GI/Abdominal GI/Abdominal exam: Present: normal bowel sounds, soft. Absent: distended, tenderness - Extremities Exam Extremities exam: Absent: pedal edema - Neurological Exam Neurological exam: Present: alert, oriented X3. Absent: facial droop, speech deficit Internal Medicine: Result - Labs CBC & Chem 7: 03/15/17 05:47 03/15/17 05:47 Labs: Short CBC 03/15/17 Range/Units 05:47 WBC 28.4 H (4.3-11.1) K/mcL Hgb 8.2 L (11.5-15.4) g/dL Hct 24.9 L (35.3-44.9) % Plt Count 227 (140-400) K/mcL Neutrophils # 26.1 H (1.6-8.9) K/mcL BMP 03/15/17 05:47 Sodium 132 L Potassium 3.5 Chloride 102 Carbon Dioxide 27 BUN 13 Creatinine 0.55 L Glucose 90 Calcium 7.5 L Liver Function 03/15/17 Range/Units 05:47 Total Bilirubin 1.1 D (0.2-1.2) mg/dL Direct Bilirubin 0.8 H (0.0-0.5) mg/dL AST 97 H (5-34) Units/L ALT 62 H (0-55) Units/L Alkaline Phosphatase 213 H (38-126) Units/L Albumin 1.2 L (3.5-5.0) g/dL - ABG Interpretation ABG results: PT/INR, D-dimer PT 20.8 Seconds (9.4-12.1) H 03/14/17 06:45 Consult Discharge Plan - Plan Referrals: Afsaneh Worley, EDGER OPERATOR [Advanced Practice Nurse] - 03/21/17 9:15 am (PLEASE TAKE WITH YOU TO YOUR APPOINTMENT A MONTH'S WORTH OF INCOME, THEY DO A SLIDING SCALE OF WHAT YOU WOULD HAVE TO PAY. PLEASE SHOW UP 20 MINS. EARLY FOR YOUR APPOINTMENT TO FILL OUT PAPER WORK. IF YOU NEED TO CANCEL PLEASE CALL [phone] WITH IN 24 HOURS OF YOUR APPOINTMENT TIME.)
[2017-03-15] MEDS ORDERED: *HR* LORazepam 2 MG/ML VIAL IVP ONE (21:05)
[2017-03-15] MEDS ORDERED: *HR* LORazepam 2 MG/ML VIAL ONE (21:12)
[2017-03-16] MEDS: 0.9 % Sodium Chloride 1,000 ML IVC SCH ×3 (02:54→18:11)
[2017-03-16 05:21] LABS: Basophils % 0.2 %; Hemoglobin 7.4 g/dL (11.5-15.4)
[2017-03-16 05:23] LABS: Basophils # 0.1 K/mcL (0.0-0.2); Eosinophils # 0.1 K/mcL (0.0-0.6); Eosinophils % 0.3 %; Hematocrit 22.2 % (35.3-44.9); Immature Granulocytes % 3.4 % (0-4); Lymphocytes % 6.1 %; Mean Corpuscular HGB Conc 33.3 g/dL (31.6-35.5); Mean Corpuscular Hemoglobin 28.2 pg (28.0-33.3); Mean Corpuscular Volume 84.7 fL (83.0-100.0); Mean Platelet Volume 10.6 fL (9.4-12.4); Monocytes # 1.3 K/mcL (0.0-1.3); Neutrophils # 28.5 K/mcL (1.6-8.9); Platelet Count 259 K/mcL (140-400); Red Blood Count 2.62 M/mcL (3.82-4.97); Red Cell Distribution Width 14.9 % (11.5-14.5)
[2017-03-16 05:27] LABS: Alanine Aminotransferase 35 Units/L (0-55); Albumin/Globulin Ratio 0.3 (1.1-2.2); Alkaline Phosphatase 160 Units/L (38-126); Aspartate Amino Transferase 39 Units/L (5-34); BUN/Creatinine Ratio 16 (6-26); Bilirubin,Direct 0.7 mg/dL (0.0-0.5); Bilirubin,Indirect 0.3 mg/dL (0.0-1.2); Blood Urea Nitrogen 10 mg/dL (7-20); Calcium 7.3 mg/dL (8.6-10.8); Carbon Dioxide 30 mEq/L (19-29); Chloride 106 mEq/L (98-109); Globulin 4.2 g/dL (2.4-3.5); Glucose 86 mg/dL (70-99); Magnesium 1.4 mg/dL (1.6-2.6); Osmolality,Calculated 280 (280-300); Potassium 3.5 mEq/L (3.5-4.5); Sodium 136 mEq/L (136-145); eGFR For African Americans > 60 (> 60); eGFR For Non-African Americans > 60 (> 60)
[2017-03-16 05:28] LABS: Albumin 1.1 g/dL (3.5-5.0); Total Protein 5.3 g/dL (6.0-8.3)
[2017-03-16 06:26] LABS: Acinetobacter baumannii by PCR Not Detected (Not Detect); Candida albicans by PCR Not Detected (Not Detect); Candida glabrata by PCR Not Detected (Not Detect); Candida krusei by PCR Not Detected (Not Detect); Candida parapsilosis by PCR Not Detected (Not Detect); Candida tropicalis by PCR Not Detected (Not Detect); Enterococcus by PCR Not Detected (Not Detect); Escherichia coli by PCR Not Detected (Not Detect); Klebsiella oxytoca by PCR Not Detected (Not Detect); Klebsiella pneumoniae by PCR Not Detected (Not Detect); Pseudomonas aeruginosa by PCR Not Detected (Not Detect); Serratia marcescens by PCR Not Detected (Not Detect); Staphylococcus aureus by PCR ***DETECTED*** (Not Detect); Streptococcus agalactiae(B)PCR Not Detected (Not Detect); Streptococcus by PCR Not Detected (Not Detect); Streptococcus pneumoniae PCR Not Detected (Not Detect); Streptococcus pyogenes (A) PCR Not Detected (Not Detect); mecA Methicillin-Resist Gene ***DETECTED*** (Not Detect)
[2017-03-16] MEDS: *HR* Enoxaparin 80 MG/0.8 ML SYRINGE SQ SCH ×2 (06:35→18:10)
[2017-03-16] MEDS: Acetaminophen 325 MG TABLET PO PRN ×2 (06:35→13:24)
[2017-03-16 06:36] LABS: Hypersegmented Neutrophils Present (Not Present); Hypochromasia Present (Not Present); Platelet Estimate Normal (Normal); Toxic Granulation Present (Not Present)
[2017-03-16] MEDS: Vancomycin 1,500 MG in D5% in Water 250 ML IVPB SCH (06:37)
[2017-03-16] MEDS ORDERED: 0.9 % Sodium Chloride 500 ML ONE (09:45)
--- NOTE | 2017-03-16 12:57 | Infectious Disease Progress No ---
Date of Encounter: 03/16/17 Time of Encounter: 12:55 - Assessment and Plan (1) Severe sepsis Current Visit: Yes Status: Acute The patient had four SIRS criteria plus hypotension and elevated liver enzymes on admission. Likely secondary to bacteremia and endocarditis. She was afebrile last night with Tmax 101.7 in the last 24 hours. She continues to have tachycardia and intermittent tachypnea. WBC is worse this morning. Blood cultures drawn 03/13/17 are positive 2/2 sets for MRSA. Repeat blood cultures drawn 03/15/17 are positive 1/2 sets for MRSA. (2) Bacteremia Current Visit: Yes Status: Acute Causative organism MRSA. Source likely IV drug use. Complicated due to septic emboli in the lungs. Blood cultures drawn 03/13/17 are positive 2/2 sets for MRSA. Repeat blood cultures drawn 03/15/17 are positive 1/2 sets for MRSA. The patient has two major and two minor Modified Lares's Criteria. TTE completed 03/13/17 showed a mobile echodensity on the tricuspid valve consistent with vegetation. Repeat blood cultures x 2 sets in the morning. Continue Vancomycin IV. Pharmacy to dose. Goal trough ~15. Most recent vanc trough 19. Dosing discussed with Edd Shultz. Duration of treatment depends on the clinical picture, but likely 6 weeks of IV antibiotics due to the endocarditis. Monitor renal function and for drug toxicity and dose-adjust antibiotics. (3) Infective endocarditis Current Visit: Yes Status: Acute Causative organism MRSA. TTE completed 03/13/17 showed mobile echodensity on the tricuspid valve consistent with vegetation. Likely secondary to MRSA bacteremia. Antibiotic recommendations as above. Qualifiers: Infective endocarditis organism: bacterial Chronicity: acute Qualified Code(s): I33.0 - Acute and subacute infective endocarditis (4) Septic embolism Current Visit: Yes Status: Acute CT scan of the chest shows bilateral pulmonary nodules with central cavitation concerning for septic emboli versus atypical infection. Pulmonology consulted and following. Feels that given the clinical picture, these nodules are likely septic emboli. Continue antibiotics as above. (5) Abscess Current Visit: Yes Status: Acute MRI of the L-spine shows septic left sacroiliac arthritis with abscess. Causative organism likely MRSA. Likely seeding from MRSA bacteremia. IR consulted. Recommends CT scan with IV contrast to further evaluate and then likely CT-guided drain placement. Continue antibiotics as above. (6) Septic arthritis Current Visit: Yes Status: Acute MRI shows septic arthritis of the left sacroiliac joint with abscess. Continue antibiotics as above. Qualifiers: Septic arthritis location: vertebra Septic arthritis organism: staphylococcal Qualified Code(s): M00.08 - Staphylococcal arthritis, vertebrae (7) Loculated pleural effusion Current Visit: Yes Status: Acute CT of the chest shows a moderate right and small left pleural effusions that are partially loculated. IR consulted. Status post right thoracentesis 03/14/17. 450ml red fluid drained per IR nurse notes. Appears exudative, but culture is negative. Left thoracentesis cancelled due to the fact that it is very small. Pulmonology consulted and following. (8) Myositis Current Visit: Yes Status: Acute Location: Right piriformis muscle. CT of the abdomen and pelvis shows right piriformis myositis. Continue antibiotics as above. Qualifiers: Myositis type: infective Myositis location: other site Qualified Code(s) : M60.08 - Infective myositis, other site (9) Elevated transaminase level Current Visit: Yes Status: Acute Etiology unclear: Chronic Hep C. vs. acute infection vs. other. Improved this morning. Continue to trend. Consider GI consult for further evaluation. (10) Back pain Current Visit: Yes Status: Acute Likely secondary to right piriformis myositis. C-spine and L-spine CT scans negative for abscess. Patient continues to complain of severe pain that makes it difficult for her to get out of bed or move. MRI of the L-spine shows septic arthritis of the left sacroiliac joint with abscess. Pain management per the primary team. Qualifiers: Back pain location: low back pain Chronicity: acute Back pain laterality : midline Sciatica presence: without sciatica Qualified Code(s): M54.5 - Low back pain (11) Hepatitis C Current Visit: Yes Status: Chronic Hep C antibody positive. Refer to GI as an outpatient for management. Qualifiers: Viral hepatitis chronicity: chronic Hepatic coma status: without hepatic coma Qualified Code(s): B18.2 - Chronic viral hepatitis C (12) IV drug user Current Visit: Yes Status: Chronic HIV non-reactive. Known Hep C positive. Hep A and Hep B non-reactive. - Subjective Interval history: Patient seen and examined. Overnight events noted. Patient had MRI that shows sacroiliac joint septic arthritis and an abscess. IR has been consulted and plans for CT scan later followed by drain placement. Patient states that overall she continues to feel poorly. She reports fevers and chills and rigors overnight. She denies any headache or neck pain. She denies any chest pain, shortness of breath, or cough. She denies any nausea, vomiting, diarrhea, or constipation. She denies abdominal pain, but states she did not eat any breakfast this morning. She denies any urinary complaints and has a Bernard catheter remains patent. She continues to complain of severe lower back pain. She denies any oral thrush or new skin lesions. Infect Dis PN-Objective Data - Labs CBC & Chem 7: 03/16/17 05:00 03/16/17 05:00 Labs: Laboratory Results - last 24 hr 03/14/17 03/14/17 03/14/17 05:23 05:23 13:30 WBC RBC Hgb Hct MCV MCH MCHC RDW Plt Count MPV Immature Gran % Seg Neutrophils % Lymphocytes % Monocytes % Eosinophils % Basophils % Neutrophils # Lymphocytes # Monocytes # Eosinophils # Basophils # Hypersegmented Neuts Toxic Granulation Platelet Estimate Hypochromasia Sodium Potassium Chloride Carbon Dioxide BUN Creatinine Est GFR ( Amer) Est GFR (Non-Af Amer) BUN/Creatinine Ratio Glucose POC Glucose Calculated Osmolality Calcium Magnesium Total Bilirubin Direct Bilirubin Indirect Bilirubin AST ALT Alkaline Phosphatase Serum Total Protein Albumin Globulin Albumin/Globulin Ratio Pleural Fluid Volume 500.0 Pleural Appearance Bloody A Pleural RBC 0.091 H Pleural Tot Nuc Cell 6363 H Pleural Neutrophils 80.0 Pleural Band Neuts Test Not Performed Pleural Eosinophils 2.0 Pleural Basophils Test Not Performed Pleural Lymphocytes % 15.0 Pleural Monocytes % 3.0 Pleural Other Cells % Test Not Performed Vancomycin Trough A. baumannii (PCR) Claribel albicans (PCR) C. glabrata (PCR) C. krusei (PCR) C. parapsilosis (PCR) C. tropicalis (PCR) Enterobacteriac sp PCR E. cloacae complex PCR Enterococcus sp PCR E. coli (PCR) H. influenzae (PCR) Hepatitis C Ab Screen Reactive H HIV Ag/Ab Combo Qual Nonreactive Klebsiella oxytoca PCR Klebsiella pneumoniae List. monocytogenes PCR N. meningitidis (PCR) Proteus species (PCR) Serratia marcescens PCR Staphylococcus sp PCR Staph aureus (PCR) mecA-Methicil Res Gene Streptococcus sp PCR Group A Strep DNA Group B Strep (PCR) Strep pneumoniae (PCR) P. aeruginosa (PCR) Angi/B-Vanco Res Genes KPC (blaKPC) Detect PCR 03/14/17 03/15/17 03/16/17 20:34 05:47 05:00 WBC 33.1 H* RBC 2.62 L Hgb 7.4 L Hct 22.2 L MCV 84.7 MCH 28.2 MCHC 33.3 RDW 14.9 H Plt Count 259 MPV 10.6 Immature Gran % 3.4 Seg Neutrophils % 86.0 Lymphocytes % 6.1 Monocytes % 4.0 Eosinophils % 0.3 Basophils % 0.2 Neutrophils # 28.5 H Lymphocytes # 2.0 Monocytes # 1.3 Eosinophils # 0.1 Basophils # 0.1 Hypersegmented Neuts Present A Toxic Granulation Present A Platelet Estimate Normal Hypochromasia Present A Sodium Potassium Chloride Carbon Dioxide BUN Creatinine Est GFR ( Amer) Est GFR (Non-Af Amer) BUN/Creatinine Ratio Glucose POC Glucose 102 H Calculated Osmolality Calcium Magnesium Total Bilirubin Direct Bilirubin Indirect Bilirubin AST ALT Alkaline Phosphatase Serum Total Protein Albumin Globulin Albumin/Globulin Ratio Pleural Fluid Volume Pleural Appearance Pleural RBC Pleural Tot Nuc Cell Pleural Neutrophils Pleural Band Neuts Pleural Eosinophils Pleural Basophils Pleural Lymphocytes % Pleural Monocytes % Pleural Other Cells % Vancomycin Trough A. baumannii (PCR) Not Detected Claribel albicans (PCR) Not Detected C. glabrata (PCR) Not Detected C. krusei (PCR) Not Detected C. parapsilosis (PCR) Not Detected C. tropicalis (PCR) Not Detected Enterobacteriac sp PCR Not Detected E. cloacae complex PCR Not Detected Enterococcus sp PCR Not Detected E. coli (PCR) Not Detected H. influenzae (PCR) Not Detected Hepatitis C Ab Screen HIV Ag/Ab Combo Qual Klebsiella oxytoca PCR Not Detected Klebsiella pneumoniae Not Detected List. monocytogenes PCR Not Detected N. meningitidis (PCR) Not Detected Proteus species (PCR) Not Detected Serratia marcescens PCR Not Detected Staphylococcus sp PCR DETECTED A Staph aureus (PCR) DETECTED A mecA-Methicil Res Gene DETECTED A Streptococcus sp PCR Not Detected Group A Strep DNA Not Detected Group B Strep (PCR) Not Detected Strep pneumoniae (PCR) Not Detected P. aeruginosa (PCR) Not Detected Angi/B-Vanco Res Genes N/A KPC (blaKPC) Detect PCR N/A 03/16/17 03/16/17 05:00 05:00 WBC RBC Hgb Hct MCV MCH MCHC RDW Plt Count MPV Immature Gran % Seg Neutrophils % Lymphocytes % Monocytes % Eosinophils % Basophils % Neutrophils # Lymphocytes # Monocytes # Eosinophils # Basophils # Hypersegmented Neuts Toxic Granulation Platelet Estimate Hypochromasia Sodium 136 Potassium 3.5 Chloride 106 Carbon Dioxide 30 H BUN 10 Creatinine 0.63 Est GFR ( Amer) > 60 Est GFR (Non-Af Amer) > 60 BUN/Creatinine Ratio 16 Glucose 86 POC Glucose Calculated Osmolality 280 Calcium 7.3 L Magnesium 1.4 L Total Bilirubin 1.0 Direct Bilirubin 0.7 H Indirect Bilirubin 0.3 AST 39 H ALT 35 Alkaline Phosphatase 160 H Serum Total Protein 5.3 L Albumin 1.1 L Globulin 4.2 H Albumin/Globulin Ratio 0.3 L Pleural Fluid Volume Pleural Appearance Pleural RBC Pleural Tot Nuc Cell Pleural Neutrophils Pleural Band Neuts Pleural Eosinophils Pleural Basophils Pleural Lymphocytes % Pleural Monocytes % Pleural Other Cells % Vancomycin Trough 19.0 A. baumannii (PCR) Claribel albicans (PCR) C. glabrata (PCR) C. krusei (PCR) C. parapsilosis (PCR) C. tropicalis (PCR) Enterobacteriac sp PCR E. cloacae complex PCR Enterococcus sp PCR E. coli (PCR) H. influenzae (PCR) Hepatitis C Ab Screen HIV Ag/Ab Combo Qual Klebsiella oxytoca PCR Klebsiella pneumoniae List. monocytogenes PCR N. meningitidis (PCR) Proteus species (PCR) Serratia marcescens PCR Staphylococcus sp PCR Staph aureus (PCR) mecA-Methicil Res Gene Streptococcus sp PCR Group A Strep DNA Group B Strep (PCR) Strep pneumoniae (PCR) P. aeruginosa (PCR) Angi/B-Vanco Res Genes KPC (blaKPC) Detect PCR Cultures: Cultures 03/14/17 13:30 Acid Fast Stain - Final Pleural Fluid 03/14/17 13:30 Body Fluid Culture - Preliminary Pleural Fluid 03/15/17 05:47 Blood Culture - Preliminary Peripheral Venipuncture No growth. 03/15/17 05:47 Blood Culture - Preliminary Peripheral Venipuncture Gram Positive Cocci Serology 03/15/17 03/14/17 03/14/17 Range/Units 05:47 13:30 05:23 Pleural Fluid Volume 500.0 mL Pleural Appearance Bloody A (Clear) Pleural RBC 0.091 H (0.000 - 0.002) M/mcL Pleural Tot Nuc Cell 6363 H (0-1000) TNC/mcL Pleural Neutrophils 80.0 % Pleural Band Neuts Test Not Performed Pleural Eosinophils 2.0 % Pleural Basophils Test Not Performed Pleural Lymphocytes % 15.0 % Pleural Monocytes % 3.0 % Pleural Other Cells % Test Not Performed Pleural Total Protein 3.3 (No Ref Range) g/dL Pleural LDH 1016 (No Ref Range) Units/L A. baumannii (PCR) Not Detected (Not Detect) Claribel albicans (PCR) Not Detected (Not Detect) C. glabrata (PCR) Not Detected (Not Detect) C. krusei (PCR) Not Detected (Not Detect) C. parapsilosis (PCR) Not Detected (Not Detect) C. tropicalis (PCR) Not Detected (Not Detect) Enterobacteriac sp PCR Not Detected (Not Detect) E. cloacae complex PCR Not Detected (Not Detect) Enterococcus sp PCR Not Detected (Not Detect) E. coli (PCR) Not Detected (Not Detect) H. influenzae (PCR) Not Detected (Not Detect) Hepatitis A IgM Ab (Nonreactive) Hep Bs Antigen (Nonreactive) Hep B Core IgM Ab (Nonreactive) Hepatitis C Ab Screen (Nonreactive) HIV Ag/Ab Combo Qual Nonreactive (Nonreactive) Klebsiella oxytoca PCR Not Detected (Not Detect) Klebsiella pneumoniae Not Detected (Not Detect) List. monocytogenes PCR Not Detected (Not Detect) N. meningitidis (PCR) Not Detected (Not Detect) Proteus species (PCR) Not Detected (Not Detect) Serratia marcescens PCR Not Detected (Not Detect) Staphylococcus sp PCR DETECTED A (Not Detect) Staph aureus (PCR) DETECTED A (Not Detect) mecA-Methicil Res Gene DETECTED A (Not Detect) Streptococcus sp PCR Not Detected (Not Detect) Group A Strep DNA Not Detected (Not Detect) Group B Strep (PCR) Not Detected (Not Detect) Strep pneumoniae (PCR) Not Detected (Not Detect) P. aeruginosa (PCR) Not Detected (Not Detect) Angi/B-Vanco Res Genes N/A (Not Detect) KPC (blaKPC) Detect PCR N/A (Not Detect) 07/18/17 Range/Units 05:23 Pleural Fluid Volume mL Pleural Appearance (Clear) Pleural RBC (0.000 - 0.002) M/mcL Pleural Tot Nuc Cell (0-1000) TNC/mcL Pleural Neutrophils % Pleural Band Neuts Pleural Eosinophils % Pleural Basophils Pleural Lymphocytes % % Pleural Monocytes % % Pleural Other Cells % Pleural Total Protein (No Ref Range) g/dL Pleural LDH (No Ref Range) Units/L A. baumannii (PCR) (Not Detect) Claribel albicans (PCR) (Not Detect) C. glabrata (PCR) (Not Detect) C. krusei (PCR) (Not Detect) C. parapsilosis (PCR) (Not Detect) C. tropicalis (PCR) (Not Detect) Enterobacteriac sp PCR (Not Detect) E. cloacae complex PCR (Not Detect) Enterococcus sp PCR (Not Detect) E. coli (PCR) (Not Detect) H. influenzae (PCR) (Not Detect) Hepatitis A IgM Ab Nonreactive (Nonreactive) Hep Bs Antigen Nonreactive (Nonreactive) Hep B Core IgM Ab Nonreactive (Nonreactive) Hepatitis C Ab Screen Reactive H (Nonreactive) HIV Ag/Ab Combo Qual (Nonreactive) Klebsiella oxytoca PCR (Not Detect) Klebsiella pneumoniae (Not Detect) List. monocytogenes PCR (Not Detect) N. meningitidis (PCR) (Not Detect) Proteus species (PCR) (Not Detect) Serratia marcescens PCR (Not Detect) Staphylococcus sp PCR (Not Detect) Staph aureus (PCR) (Not Detect) mecA-Methicil Res Gene (Not Detect) Streptococcus sp PCR (Not Detect) Group A Strep DNA (Not Detect) Group B Strep (PCR) (Not Detect) Strep pneumoniae (PCR) (Not Detect) P. aeruginosa (PCR) (Not Detect) Angi/B-Vanco Res Genes (Not Detect) KPC (blaKPC) Detect PCR (Not Detect) - Impressions Impressions Lumbar Spine MRI 03/15/17 16:53 IMPRESSION: 1. Severely motion limited evaluation despite multiple repeat imaging attempts. 2. Partially imaged marrow edema and enhancement about the anterior left sacroiliac joint with suspected adjacent soft tissue enhancing fluid collection suspicious for septic left sacroiliac arthritis and abscess. CT or MRI of the pelvis with contrast is recommended for evaluation when the patient is clinically able to tolerate further imaging. 3. No evidence of epidural abscess. D/ / Vicente Musa MD / Vicente Musa MD Interpreting Provider: Vicente Musa MD Exam - Constitutional Vitals: Temp Pulse Resp BP Pulse Ox 100.4 F H 119 30 117/73 91 03/16/17 12:50 03/16/17 12:50 03/16/17 12:50 03/16/17 12:50 03/16/17 12:50 General appearance: average body habitus, cooperative, no acute distress - Head Head exam: Present: atraumatic, normal inspection, normocephalic - Eye Eye exam: Present: EOMI, normal appearance, PERRL Pupils: Present: normal accommodation Additional comments: No subconjunctival hemorrhage noted. - ENT ENT exam: Present: mucous membranes dry - Neck Neck exam: Present: normal inspection - Respiratory Respiratory exam: Present: CTAB. Absent: rales, rhonchi, wheezes - Cardiovascular Cardiovascular exam: Present: tachycardia. Absent: irregular rhythm - GI/Abdominal GI/Abdominal exam: Present: normal bowel sounds, soft. Absent: distended, tenderness Additional comments: Bernard catheter patent draining clear yellow urine. - Extremities Exam Extremities exam: Present: normal inspection. Absent: joint swelling, pedal edema, tenderness Additional comments: No endocarditis stigmata noted. - Back Exam Back exam: Present: normal inspection, paraspinal tenderness (Bilateral lumbar spine). Absent: vertebral tenderness - Neurological Exam Neurological exam: Present: alert, oriented X3, no focal deficits - Psychiatric Psychiatric exam: Present: normal affect, normal mood - Skin Skin exam: Present: dry, intact, normal color, warm Consult Discharge Plan - Plan Referrals: Afsaneh Worley, [employer] B[employer] MANAGER [Advanced Practice Nurse] - 03/21/17 9:15 am (PLEASE TAKE WITH YOU TO YOUR APPOINTMENT A MONTH'S WORTH OF INCOME, THEY DO A SLIDING SCALE OF WHAT YOU WOULD HAVE TO PAY. PLEASE SHOW UP 20 MINS. EARLY FOR YOUR APPOINTMENT TO FILL OUT PAPER WORK. IF YOU NEED TO CANCEL PLEASE CALL [phone] WITH IN 24 HOURS OF YOUR APPOINTMENT TIME.) - Attending Attestation I examined this patient and my medical decision-making was reviewed with the Resident Physician. I agree with the documented findings, disposition and treatment plan as described except to the extent set forth below.
[2017-03-16] MEDS: Ketorolac 30 MG/ML VIAL IVP PRN ×2 (13:25→20:43)
[2017-03-16] MEDS: Vancomycin 1,250 MG in D5% in Water 250 ML IVPB SCH (18:10)
--- NOTE | 2017-03-16 18:40 | Internal Med Progress Note ---
Date of Encounter: 03/16/17 Time of Encounter: 08:45 - Assessment and plan (1) Severe sepsis Current Visit: Yes Status: Acute Assessment and plan: 36-year-old female with past medical history hepatitis C, mood disorder and prior use of IV drugs. Per patient, she has not use drugs in several years. She presented with generalized weakness. CT chest showed moderate right and small left pleural effusion, appeared to be partially loculated. Cardiac revealed a mobile echodensity on the tricuspid valve consistent with vegetation. 03/13: Blood cultures are positive for GPC, PCR shows MRSA. CT of the abdomen and pelvis revealed a right piriformis muscle myositis. Source is infective endocarditis, MRSA bacteremia, located pleural effusion, myositis. 03/14: Patient underwent right-sided thoracentesis with removal of 450 ml of exudative pleural fluid. preliminary stain shows no bacteria. 03/15: blood cultures positive for MRSA. 03/16: blood cultures taken. sepsis has not resolved. temp curve trending down but still febrile 10pm (temp 101). WBC continues to trend up to 33. Appreciate pulmonology and ID input. Continue empiric antibiotics with IV vancomycin. Continue IV fluid hydration. (2) Septic embolism Current Visit: Yes Status: Acute Assessment and plan: Plan as above. (3) Infective endocarditis Current Visit: Yes Status: Acute Assessment and plan: Plan as above. Qualifiers: Infective endocarditis organism: bacterial Chronicity: acute Qualified Code(s): I33.0 - Acute and subacute infective endocarditis (4) Bacteremia Current Visit: Yes Status: Acute Assessment and plan: Plan as above. (5) Loculated pleural effusion Current Visit: Yes Status: Acute Assessment and plan: Plan as above. (6) Elevated transaminase level Current Visit: Yes Status: Acute Assessment and plan: Secondary to severe sepsis. Closed monitor LFTs. (7) Myositis Current Visit: Yes Status: Acute Assessment and plan: Right piriform muscle myositis. As above. Qualifiers: Myositis type: infective Myositis location: other site Qualified Code(s) : M60.08 - Infective myositis, other site (8) DVT (deep venous thrombosis) Current Visit: Yes Status: Acute Assessment and plan: CT of the abdomen and pelvis revealed suspected internal iliac vein thrombophlebitis. Start Lovenox. Qualifiers: DVT location: lower extremity Affected thrombotic vein of extremity: iliac Chronicity: acute Laterality: right Qualified Code(s): I82.421 - Acute embolism and thrombosis of right iliac vein (9) Septic arthritis Current Visit: Yes Status: Acute Assessment and plan: MRI shows septic arthritis of Left sacroiliac joint. continue empiric antibiotics. Qualifiers: Septic arthritis location: vertebra Septic arthritis organism: staphylococcal Qualified Code(s): M00.08 - Staphylococcal arthritis, vertebrae (10) IV drug user Current Visit: Yes Status: Chronic Assessment and plan: Check HIV. (11) Hepatitis C Current Visit: Yes Status: Chronic Qualifiers: Viral hepatitis chronicity: chronic Hepatic coma status: without hepatic coma Qualified Code(s): B18.2 - Chronic viral hepatitis C - Subjective Interval history: Patient patient reports persistent pain on her lumbar area. - Constitutional Vitals: Temp Pulse Resp BP Pulse Ox 98.6 F 106 32 101/65 94 03/16/17 17:13 03/16/17 17:13 03/16/17 17:13 03/16/17 17:13 03/16/17 17:13 General appearance: Present: cooperative, A&O X 3, pleasant, no acute distress, answers questions appropriately - Neck Neck exam general surgery: Present: supple, trachea midline. Absent: lymphadenopathy - Respiratory Respiratory exam: Present: decreased breath sounds, rales - Cardiovascular Cardiovascular exam: Present: tachycardia - GI/Abdominal GI/Abdominal exam: Present: normal bowel sounds, soft. Absent: distended, tenderness - Extremities Exam Extremities exam: Absent: pedal edema - Back Exam Back exam: Present: tenderness (lumbar) - Neurological Exam Neurological exam: Present: alert Internal Medicine: Result - Labs CBC & Chem 7: 03/16/17 05:00 03/16/17 05:00 Labs: Short CBC 03/16/17 Range/Units 05:00 WBC 33.1 H* (4.3-11.1) K/mcL Hgb 7.4 L (11.5-15.4) g/dL Hct 22.2 L (35.3-44.9) % Plt Count 259 (140-400) K/mcL Neutrophils # 28.5 H (1.6-8.9) K/mcL BMP 03/16/17 05:00 Sodium 136 Potassium 3.5 Chloride 106 Carbon Dioxide 30 H BUN 10 Creatinine 0.63 Glucose 86 Calcium 7.3 L Liver Function 03/16/17 Range/Units 05:00 Total Bilirubin 1.0 (0.2-1.2) mg/dL Direct Bilirubin 0.7 H (0.0-0.5) mg/dL AST 39 H (5-34) Units/L ALT 35 (0-55) Units/L Alkaline Phosphatase 160 H (38-126) Units/L Albumin 1.1 L (3.5-5.0) g/dL - ABG Interpretation ABG results: PT/INR, D-dimer PT 20.8 Seconds (9.4-12.1) H 03/14/17 06:45 - Impressions Impressions Lumbar Spine MRI 03/15/17 16:53 IMPRESSION: 1. Severely motion limited evaluation despite multiple repeat imaging attempts. 2. Partially imaged marrow edema and enhancement about the anterior left sacroiliac joint with suspected adjacent soft tissue enhancing fluid collection suspicious for septic left sacroiliac arthritis and abscess. CT or MRI of the pelvis with contrast is recommended for evaluation when the patient is clinically able to tolerate further imaging. 3. No evidence of epidural abscess. D/ / Vicente Musa MD / Vicente Musa MD Interpreting Provider: Vicente Musa MD Pelvis CT 03/16/17 13:30 IMPRESSION: 1. No discrete drainable fluid collection in or around the left SI joint. 2. Diffuse mild body wall edema. 3. Colonic diverticulosis without acute inflammatory changes. 4. Small amount of free fluid in the pelvis. D/ / 03/16/2017 15:09:45 Genesis Anderson MD / earnest Interpreting Provider: Genesis Anderson MD Consult Discharge Plan - Plan Referrals: Afsaneh Worley, ENGINE INSTALLER [Advanced Practice Nurse] - 03/21/17 9:15 am (PLEASE TAKE WITH YOU TO YOUR APPOINTMENT A MONTH'S WORTH OF INCOME, THEY DO A SLIDING SCALE OF WHAT YOU WOULD HAVE TO PAY. PLEASE SHOW UP 20 MINS. EARLY FOR YOUR APPOINTMENT TO FILL OUT PAPER WORK. IF YOU NEED TO CANCEL PLEASE CALL [phone] WITH IN 24 HOURS OF YOUR APPOINTMENT TIME.)
[2017-03-16] MEDS ORDERED: *HR* LORazepam 2 MG/ML VIAL IVP STA (23:54)
[2017-03-17] MEDS: Acetaminophen 325 MG TABLET PO PRN ×3 (00:36→21:45)
[2017-03-17] MEDS ORDERED: *HR* Morphine 2 MG/ML SYRINGE ONE (01:37)
[2017-03-17] MEDS ORDERED: Magnesium Sulfate 2 GM in D5% in Water 100 ML IVPB ONE (01:48)
[2017-03-17] MEDS ORDERED: Ipratropium/Albuterol Neb 3 ML IH PRN (01:50)
[2017-03-17] MEDS ORDERED: *HR* Morphine 2 MG/ML SYRINGE IVP ONE (01:54)
[2017-03-17] MEDS ORDERED: Levalbuterol Neb 0.63 MG/3 ML IH PRN (01:55)
[2017-03-17 03:45] LABS: Basophils % 0.2 %; Eosinophils % 0.2 %; Monocytes % 3.9 %
[2017-03-17 03:47] LABS: Basophils # 0.1 K/mcL (0.0-0.2); Eosinophils # 0.1 K/mcL (0.0-0.6); Hematocrit 22.6 % (35.3-44.9); Hemoglobin 7.5 g/dL (11.5-15.4); Immature Granulocytes % 2.3 % (0-4); Immature Platelets 2.6 % (1.1-6.1); Lymphocytes # 1.7 K/mcL (0.6-4.6); Lymphocytes % 5.4 %; Mean Corpuscular HGB Conc 33.2 g/dL (31.6-35.5); Mean Corpuscular Hemoglobin 28.5 pg (28.0-33.3); Mean Corpuscular Volume 85.9 fL (83.0-100.0); Mean Platelet Volume 9.8 fL (9.4-12.4); Platelet Count 318 K/mcL (140-400); Red Blood Count 2.63 M/mcL (3.82-4.97); Red Cell Distribution Width 14.6 % (11.5-14.5)
[2017-03-17 03:55] LABS: Monocytes # 1.2 K/mcL (0.0-1.3); Neutrophils # 28.1 K/mcL (1.6-8.9)
[2017-03-17 04:03] LABS: BUN/Creatinine Ratio 18 (6-26); Blood Urea Nitrogen 12 mg/dL (7-20); Calcium 7.3 mg/dL (8.6-10.8); Carbon Dioxide 23 mEq/L (19-29); Chloride 105 mEq/L (98-109); Glucose 94 mg/dL (70-99); Magnesium 1.8 mg/dL (1.6-2.6); Osmolality,Calculated 278 (280-300); Sodium 134 mEq/L (136-145); eGFR For African Americans > 60 (> 60); eGFR For Non-African Americans > 60 (> 60)
[2017-03-17 04:05] LABS: Potassium 3.8 mEq/L (3.5-4.5)
[2017-03-17 04:27] LABS: Platelet Estimate Normal (Normal)
[2017-03-17] MEDS: Vancomycin 1,250 MG in D5% in Water 250 ML IVPB SCH ×2 (06:26→18:19)
[2017-03-17] MEDS: 0.9 % Sodium Chloride 1,000 ML IVC SCH ×2 (06:26→21:48)
[2017-03-17] MEDS: *HR* Enoxaparin 80 MG/0.8 ML SYRINGE SQ SCH ×2 (06:27→18:18)
[2017-03-17] MEDS: *HR* OxyCODONE Immed Rel 5 MG TABLET PO PRN (09:31)
[2017-03-17] MEDS: Ketorolac 30 MG/ML VIAL IVP PRN ×2 (09:34→13:43)
--- NOTE | 2017-03-17 10:48 | Infectious Disease Progress No ---
Date of Encounter: 03/17/17 Time of Encounter: 10:46 - Assessment and Plan (1) Severe sepsis Current Visit: Yes Status: Acute The patient had four SIRS criteria plus hypotension and elevated liver enzymes on admission. Likely secondary to bacteremia and endocarditis. She was febrile last night with Tmax 101.5 in the last 24 hours. She continues to have tachycardia and intermittent tachypnea. WBC is a little better this morning, but still elevated. Blood cultures drawn 03/13/17 are positive 2/2 sets for MRSA. Repeat blood cultures drawn 03/15/17 are positive 1/2 sets for MRSA. Additional blood cultures drawn 03/17/17 are pending x 2 sets. (2) Bacteremia Current Visit: Yes Status: Acute Causative organism MRSA. Source likely IV drug use. Complicated due to septic emboli in the lungs. Blood cultures drawn 03/13/17 are positive 2/2 sets for MRSA. Repeat blood cultures drawn 03/15/17 are positive 1/2 sets for MRSA. Additional blood cultures drawn 03/17/17 are pending x 2 sets. The patient has two major and two minor Modified Lares's Criteria. TTE completed 03/13/17 showed a mobile echodensity on the tricuspid valve consistent with vegetation. Continue Vancomycin IV. Pharmacy to dose. Goal trough ~15. Most recent vanc trough 19. Duration of treatment depends on the clinical picture, but likely 6 weeks of IV antibiotics due to the endocarditis. Monitor renal function and for drug toxicity and dose-adjust antibiotics. (3) Infective endocarditis Current Visit: Yes Status: Acute Causative organism MRSA. TTE completed 03/13/17 showed mobile echodensity on the tricuspid valve consistent with vegetation. Likely secondary to MRSA bacteremia. Antibiotic recommendations as above. Qualifiers: Infective endocarditis organism: bacterial Chronicity: acute Qualified Code(s): I33.0 - Acute and subacute infective endocarditis (4) Septic embolism Current Visit: Yes Status: Acute CT scan of the chest shows bilateral pulmonary nodules with central cavitation concerning for septic emboli versus atypical infection. Likely secondary to right-sided endocarditis. Pulmonology consulted and following. Feels that given the clinical picture, these nodules are likely septic emboli. Continue antibiotics as above. (5) Abscess Current Visit: Yes Status: Ruled-out MRI of the L-spine showed findings concerning for possible septic left sacroiliac arthritis with abscess. CT scan negative for abscess. (6) Septic arthritis Current Visit: Yes Status: Acute MRI shows septic arthritis of the left sacroiliac joint with abscess. Consult Dr. Bean for further recommendations. Continue antibiotics as above. Qualifiers: Septic arthritis location: vertebra Septic arthritis organism: staphylococcal Qualified Code(s): M00.08 - Staphylococcal arthritis, vertebrae (7) Loculated pleural effusion Current Visit: Yes Status: Acute CT of the chest shows a moderate right and small left pleural effusions that are partially loculated. IR consulted. Status post right thoracentesis 03/14/17. 450ml red fluid drained per IR nurse notes. Appears exudative, but culture is negative. Left thoracentesis cancelled due to the fact that it is very small. Pulmonology consulted and following. (8) Myositis Current Visit: Yes Status: Acute Location: Right piriformis muscle. CT of the abdomen and pelvis shows right piriformis myositis. Continue antibiotics as above. Qualifiers: Myositis type: infective Myositis location: other site Qualified Code(s) : M60.08 - Infective myositis, other site (9) Elevated transaminase level Current Visit: Yes Status: Acute Etiology unclear: Chronic Hep C. vs. acute infection vs. other. Improved this morning. Continue to trend. Consider GI consult for further evaluation. (10) Back pain Current Visit: Yes Status: Acute Likely secondary to right piriformis myositis and left sacroiliac septic arthritis. Patient continues to complain of severe pain that makes it difficult for her to get out of bed or move. MRI of the L-spine shows septic arthritis of the left sacroiliac joint. CT scan of the pelvis ruled out presence of associated abscess. Pain management per the primary team. Qualifiers: Back pain location: low back pain Chronicity: acute Back pain laterality : midline Sciatica presence: without sciatica Qualified Code(s): M54.5 - Low back pain (11) Hepatitis C Current Visit: Yes Status: Chronic Hep C antibody positive. Refer to GI as an outpatient for management. Qualifiers: Viral hepatitis chronicity: chronic Hepatic coma status: without hepatic coma Qualified Code(s): B18.2 - Chronic viral hepatitis C (12) IV drug user Current Visit: Yes Status: Chronic HIV non-reactive. Known Hep C positive. Hep A and Hep B non-reactive. - Subjective Interval history: Patient seen and examined. No acute events noted overnight. Patient had MRI that shows sacroiliac joint septic arthritis and an abscess. Repeat CT of the pelvis did not show abscess. Patient states that overall she continues to feel poorly and has severe back pain. She denies fevers, chills, or rigors. She denies any headache or neck pain. She denies any chest pain, shortness of breath , or cough. She denies any nausea, vomiting, diarrhea, or constipation. She states she was able to eat a little breakfast this morning. She denies abdominal pain. She denies any urinary complaints and has a Bernard catheter remains patent. She continues to complain of severe lower back pain. She denies any oral thrush or new skin lesions. Infect Dis PN-Objective Data - Labs CBC & Chem 7: 03/17/17 03:28 03/17/17 03:28 Labs: Laboratory Results - last 24 hr 03/17/17 03/17/17 03/17/17 03:28 03:28 03:28 WBC 31.9 H* RBC 2.63 L Hgb 7.5 L Hct 22.6 L MCV 85.9 MCH 28.5 MCHC 33.2 RDW 14.6 H Plt Count 318 MPV 9.8 Immature Gran % 2.3 Seg Neutrophils % 88.0 Lymphocytes % 5.4 Monocytes % 3.9 Eosinophils % 0.2 Basophils % 0.2 Neutrophils # 28.1 H Lymphocytes # 1.7 Monocytes # 1.2 Eosinophils # 0.1 Basophils # 0.1 Platelet Estimate Normal Immature Plt Fraction 2.6 Sodium 134 L Potassium 3.8 Chloride 105 Carbon Dioxide 23 BUN 12 Creatinine 0.68 Est GFR ( Amer) > 60 Est GFR (Non-Af Amer) > 60 BUN/Creatinine Ratio 18 Glucose 94 Calculated Osmolality 278 L Lactic Acid 0.7 Calcium 7.3 L Magnesium 1.8 Cultures: Cultures 03/14/17 13:30 Body Fluid Culture - Preliminary Pleural Fluid 03/14/17 13:30 Acid Fast Stain - Final Pleural Fluid 03/15/17 05:47 Blood Culture - Preliminary Peripheral Venipuncture No growth. 03/15/17 05:47 Blood Culture - Preliminary Peripheral Venipuncture Gram Positive Cocci Serology 03/15/17 03/14/17 03/14/17 Range/Units 05:47 13:30 05:23 Pleural Fluid Volume 500.0 mL Pleural Appearance Bloody A (Clear) Pleural RBC 0.091 H (0.000 - 0.002) M/mcL Pleural Tot Nuc Cell 6363 H (0-1000) TNC/mcL Pleural Neutrophils 80.0 % Pleural Band Neuts Test Not Performed Pleural Eosinophils 2.0 % Pleural Basophils Test Not Performed Pleural Lymphocytes % 15.0 % Pleural Monocytes % 3.0 % Pleural Other Cells % Test Not Performed Pleural Total Protein 3.3 (No Ref Range) g/dL Pleural LDH 1016 (No Ref Range) Units/L A. baumannii (PCR) Not Detected (Not Detect) Claribel albicans (PCR) Not Detected (Not Detect) C. glabrata (PCR) Not Detected (Not Detect) C. krusei (PCR) Not Detected (Not Detect) C. parapsilosis (PCR) Not Detected (Not Detect) C. tropicalis (PCR) Not Detected (Not Detect) Enterobacteriac sp PCR Not Detected (Not Detect) E. cloacae complex PCR Not Detected (Not Detect) Enterococcus sp PCR Not Detected (Not Detect) E. coli (PCR) Not Detected (Not Detect) H. influenzae (PCR) Not Detected (Not Detect) Hepatitis A IgM Ab (Nonreactive) Hep Bs Antigen (Nonreactive) Hep B Core IgM Ab (Nonreactive) Hepatitis C Ab Screen (Nonreactive) HIV Ag/Ab Combo Qual Nonreactive (Nonreactive) Klebsiella oxytoca PCR Not Detected (Not Detect) Klebsiella pneumoniae Not Detected (Not Detect) List. monocytogenes PCR Not Detected (Not Detect) N. meningitidis (PCR) Not Detected (Not Detect) Proteus species (PCR) Not Detected (Not Detect) Serratia marcescens PCR Not Detected (Not Detect) Staphylococcus sp PCR DETECTED A (Not Detect) Staph aureus (PCR) DETECTED A (Not Detect) mecA-Methicil Res Gene DETECTED A (Not Detect) Streptococcus sp PCR Not Detected (Not Detect) Group A Strep DNA Not Detected (Not Detect) Group B Strep (PCR) Not Detected (Not Detect) Strep pneumoniae (PCR) Not Detected (Not Detect) P. aeruginosa (PCR) Not Detected (Not Detect) Angi/B-Vanco Res Genes N/A (Not Detect) KPC (blaKPC) Detect PCR N/A (Not Detect) 03/14/17 Range/Units 05:23 Pleural Fluid Volume mL Pleural Appearance (Clear) Pleural RBC (0.000 - 0.002) M/mcL Pleural Tot Nuc Cell (0-1000) TNC/mcL Pleural Neutrophils % Pleural Band Neuts Pleural Eosinophils % Pleural Basophils Pleural Lymphocytes % % Pleural Monocytes % % Pleural Other Cells % Pleural Total Protein (No Ref Range) g/dL Pleural LDH (No Ref Range) Units/L A. baumannii (PCR) (Not Detect) Claribel albicans (PCR) (Not Detect) C. glabrata (PCR) (Not Detect) C. krusei (PCR) (Not Detect) C. parapsilosis (PCR) (Not Detect) C. tropicalis (PCR) (Not Detect) Enterobacteriac sp PCR (Not Detect) E. cloacae complex PCR (Not Detect) Enterococcus sp PCR (Not Detect) E. coli (PCR) (Not Detect) H. influenzae (PCR) (Not Detect) Hepatitis A IgM Ab Nonreactive (Nonreactive) Hep Bs Antigen Nonreactive (Nonreactive) Hep B Core IgM Ab Nonreactive (Nonreactive) Hepatitis C Ab Screen Reactive H (Nonreactive) HIV Ag/Ab Combo Qual (Nonreactive) Klebsiella oxytoca PCR (Not Detect) Klebsiella pneumoniae (Not Detect) List. monocytogenes PCR (Not Detect) N. meningitidis (PCR) (Not Detect) Proteus species (PCR) (Not Detect) Serratia marcescens PCR (Not Detect) Staphylococcus sp PCR (Not Detect) Staph aureus (PCR) (Not Detect) mecA-Methicil Res Gene (Not Detect) Streptococcus sp PCR (Not Detect) Group A Strep DNA (Not Detect) Group B Strep (PCR) (Not Detect) Strep pneumoniae (PCR) (Not Detect) P. aeruginosa (PCR) (Not Detect) Angi/B-Vanco Res Genes (Not Detect) KPC (blaKPC) Detect PCR (Not Detect) - Impressions Impressions Pelvis CT 03/16/17 13:30 IMPRESSION: 1. No discrete drainable fluid collection in or around the left SI joint. 2. Diffuse mild body wall edema. 3. Colonic diverticulosis without acute inflammatory changes. 4. Small amount of free fluid in the pelvis. D/ / 03/16/2017 15:09:45 Genesis Anderson MD / [facility]old Interpreting Provider: Genesis Anderson MD Exam - Constitutional Vitals: Temp Pulse Resp BP Pulse Ox 99.4 F 112 40 118/79 95 03/17/17 07:18 03/17/17 07:18 03/17/17 07:18 03/17/17 07:18 03/17/17 07:18 General appearance: average body habitus, cooperative, no acute distress - Head Head exam: Present: atraumatic, normal inspection, normocephalic - Eye Eye exam: Present: EOMI, normal appearance, PERRL Pupils: Present: normal accommodation Additional comments: No subconjunctival hemorrhage noted. - ENT ENT exam: Present: mucous membranes moist - Neck Neck exam: Present: normal inspection - Respiratory Respiratory exam: Present: CTAB, tachypnea. Absent: rales, respiratory distress , rhonchi, wheezes - Cardiovascular Cardiovascular exam: Present: +S1, +S2, tachycardia. Absent: irregular rhythm - GI/Abdominal GI/Abdominal exam: Present: normal bowel sounds, soft. Absent: distended, tenderness Additional comments: Bernard catheter noted to be draining clear yellow urine. - Extremities Exam Extremities exam: Present: pedal edema (1+ BLE). Absent: joint swelling, tenderness - Back Exam Back exam: Present: paraspinal tenderness (Bilateral lower back, improved). Absent: vertebral tenderness - Neurological Exam Neurological exam: Present: alert, oriented X3, no focal deficits - Psychiatric Psychiatric exam: Present: normal affect, normal mood - Skin Skin exam: Present: dry, intact, normal color, warm Additional comments: No endocarditis stigmata noted. Consult Discharge Plan - Plan Referrals: Afsaneh Worley, DIRECTOR OF BUSINESS CONTINUITY [Advanced Practice Nurse] - (PLEASE TAKE WITH YOU TO YOUR APPOINTMENT A MONTH'S WORTH OF INCOME, THEY DO A SLIDING SCALE OF WHAT YOU WOULD HAVE TO PAY. PLEASE SHOW UP 20 MINS. EARLY FOR YOUR APPOINTMENT TO FILL OUT PAPER WORK. IF YOU NEED TO CANCEL PLEASE CALL [phone] WITH IN 24 HOURS OF YOUR APPOINTMENT TIME.)
--- NOTE | 2017-03-17 18:42 | Internal Med Progress Note ---
Date of Encounter: 03/17/17 Time of Encounter: 12:30 - Assessment and plan (1) Severe sepsis Current Visit: Yes Status: Acute Assessment and plan: 36-year-old female with past medical history hepatitis C, mood disorder and prior use of IV drugs. Per patient, she has not use drugs in several years. She presented with generalized weakness. CT chest showed moderate right and small left pleural effusion, appeared to be partially loculated. Cardiac revealed a mobile echodensity on the tricuspid valve consistent with vegetation. 03/13: Blood cultures are positive for GPC, PCR shows MRSA. CT of the abdomen and pelvis revealed a right piriformis muscle myositis. Source is infective endocarditis, MRSA bacteremia, located pleural effusion, myositis. 03/14: Patient underwent right-sided thoracentesis with removal of 450 ml of exudative pleural fluid. preliminary stain shows no bacteria. 03/15: blood cultures positive for MRSA. 03/16: blood cultures taken. 03/17: blood cultures taken. sepsis has not resolved. temp curve trending down but still febrile this morning at 1am (temp 101). WBC trended down to 31. Appreciate pulmonology and ID input. Continue empiric antibiotics with IV vancomycin. Continue IV fluid hydration. (2) Septic embolism Current Visit: Yes Status: Acute Assessment and plan: Plan as above. (3) Infective endocarditis Current Visit: Yes Status: Acute Assessment and plan: Plan as above. Qualifiers: Infective endocarditis organism: bacterial Chronicity: acute Qualified Code(s): I33.0 - Acute and subacute infective endocarditis (4) Bacteremia Current Visit: Yes Status: Acute Assessment and plan: Plan as above. (5) Loculated pleural effusion Current Visit: Yes Status: Acute Assessment and plan: Plan as above. (6) Elevated transaminase level Current Visit: Yes Status: Acute Assessment and plan: Secondary to severe sepsis. Closed monitor LFTs. (7) Myositis Current Visit: Yes Status: Acute Assessment and plan: Right piriform muscle myositis. As above. Qualifiers: Myositis type: infective Myositis location: other site Qualified Code(s) : M60.08 - Infective myositis, other site (8) DVT (deep venous thrombosis) Current Visit: Yes Status: Acute Assessment and plan: CT of the abdomen and pelvis revealed suspected internal iliac vein thrombophlebitis. Start Lovenox. Qualifiers: DVT location: lower extremity Affected thrombotic vein of extremity: iliac Chronicity: acute Laterality: right Qualified Code(s): I82.421 - Acute embolism and thrombosis of right iliac vein (9) Septic arthritis Current Visit: Yes Status: Acute Assessment and plan: MRI shows septic arthritis of Left sacroiliac joint. continue empiric antibiotics. Qualifiers: Septic arthritis location: vertebra Septic arthritis organism: staphylococcal Qualified Code(s): M00.08 - Staphylococcal arthritis, vertebrae (10) IV drug user Current Visit: Yes Status: Chronic Assessment and plan: Check HIV. (11) Hepatitis C Current Visit: Yes Status: Chronic Qualifiers: Viral hepatitis chronicity: chronic Hepatic coma status: without hepatic coma Qualified Code(s): B18.2 - Chronic viral hepatitis C - Subjective Interval history: She still has severe back pain. - Constitutional Vitals: Temp Pulse Resp BP Pulse Ox 98.5 F 108 30 122/79 97 03/17/17 16:14 03/17/17 16:14 03/17/17 16:14 03/17/17 16:14 03/17/17 16:14 General appearance: Present: cooperative, A&O X 3, pleasant, no acute distress, answers questions appropriately - Eye Eye exam: Present: PERRL, sclera anicteric - Respiratory Respiratory exam: Present: decreased breath sounds, rales - Cardiovascular Cardiovascular exam: Present: systolic murmur (tricuspid area) - GI/Abdominal GI/Abdominal exam: Present: normal bowel sounds, soft. Absent: distended, tenderness - Extremities Exam Extremities exam: Absent: pedal edema - Back Exam Back exam: Present: tenderness - Neurological Exam Neurological exam: Present: alert, oriented X3, no focal deficits, strengths equal and symetr throughout. Absent: facial droop, speech deficit Internal Medicine: Result - Labs CBC & Chem 7: 03/17/17 03:28 03/17/17 03:28 Labs: Short CBC 03/17/17 Range/Units 03:28 WBC 31.9 H* (4.3-11.1) K/mcL Hgb 7.5 L (11.5-15.4) g/dL Hct 22.6 L (35.3-44.9) % Plt Count 318 (140-400) K/mcL Neutrophils # 28.1 H (1.6-8.9) K/mcL BMP 03/17/17 03:28 Sodium 134 L Potassium 3.8 Chloride 105 Carbon Dioxide 23 BUN 12 Creatinine 0.68 Glucose 94 Calcium 7.3 L - ABG Interpretation ABG results: PT/INR, D-dimer PT 20.8 Seconds (9.4-12.1) H 03/14/17 06:45 Consult Discharge Plan - Plan Referrals: Afsaneh Worley, [employer]LL PRESS SET UP OPERATOR [Advanced Practice Nurse] - (PLEASE TAKE WITH YOU TO YOUR APPOINTMENT A MONTH'S WORTH OF INCOME, THEY DO A SLIDING SCALE OF WHAT YOU WOULD HAVE TO PAY. PLEASE SHOW UP 20 MINS. EARLY FOR YOUR APPOINTMENT TO FILL OUT PAPER WORK. IF YOU NEED TO CANCEL PLEASE CALL [phone] WITH IN 24 HOURS OF YOUR APPOINTMENT TIME.)
[2017-03-17] MEDS ORDERED: *HR* LORazepam 0.5 MG TABLET PO ONE (19:28)
[2017-03-17] MEDS ORDERED: *HR* LORazepam 0.5 MG TABLET ONE (19:35)
[2017-03-17 21:52] LABS: Acinetobacter baumannii by PCR Not Detected (Not Detect); Enterococcus by PCR Not Detected (Not Detect); Escherichia coli by PCR Not Detected (Not Detect); Klebsiella oxytoca by PCR Not Detected (Not Detect); Klebsiella pneumoniae by PCR Not Detected (Not Detect); Pseudomonas aeruginosa by PCR Not Detected (Not Detect); Serratia marcescens by PCR Not Detected (Not Detect); Staphylococcus aureus by PCR ***DETECTED*** (Not Detect); Streptococcus agalactiae(B)PCR Not Detected (Not Detect); Streptococcus by PCR Not Detected (Not Detect); Streptococcus pneumoniae PCR Not Detected (Not Detect); Streptococcus pyogenes (A) PCR Not Detected (Not Detect); blaKPC Carbapenem-Resist Gene Not Detected (Not Detect); mecA Methicillin-Resist Gene ***DETECTED*** (Not Detect); vanA/B Vancomycin-Resist Genes Not Detected (Not Detect)
[2017-03-17 21:53] LABS: Candida albicans by PCR Not Detected (Not Detect); Candida glabrata by PCR Not Detected (Not Detect); Candida krusei by PCR Not Detected (Not Detect); Candida parapsilosis by PCR Not Detected (Not Detect); Candida tropicalis by PCR Not Detected (Not Detect)
[2017-03-18] MEDS ORDERED: *HR* HYDROmorphone (PF) 1 MG/ML SYRINGE IVP STA ×2 (00:11→05:06)
[2017-03-18] MEDS ORDERED: *HR* HYDROmorphone (PF) 1 MG/ML SYRINGE ONE (00:14)
--- NOTE | 2017-03-18 00:23 | Event Note ---
Date of Encounter: 03/18/17 Time of Encounter: 00:18 I was asked to see 36 old female who is admitted and found to have MRSA bacteremia, endocarditis, septic emboli due to a new rash and diarrhea. According to the patient she developed a new rash this evening on her lower extremities which is new and she has never had prior. She also complains of frequent loose liquidy stools. She states that she is not feeling well in general. With regards to the rash she said that this is new today it is not itchy and nonpainful. General: Patient alert, awake, oriented 3, interactive, in no acute distress sitting up on the commode HEENT: Normocephalic, atraumatic, oral mucosa moist, neck supple trachea midline no palpable lymphadenopathy, no thyromegaly. Extremities: Symmetric bilateral, bilateral lower extremities without edema, patient moving all 4 extremities spontaneously. Patient has petechiae not blanchable on bilateral lower extremities clustered around the ankles and Achilles tendons and the knees. Neurologic: No focal deficits appreciated on examination. Face symmetric, muscle strength symmetric bilateral upper and lower extremities. - New rash may be secondary to the patient's current state, with gram-positive bacteremia. Plan: -Stat PT INR, APTT, stat CBC, fibrinogen. - C. difficile
[2017-03-18 01:38] LABS: Eosinophils % 0.1 %
[2017-03-18 01:39] LABS: Basophils # 0.1 K/mcL (0.0-0.2); Basophils % 0.2 %; Hematocrit 22.6 % (35.3-44.9); Hemoglobin 7.5 g/dL (11.5-15.4); Lymphocytes # 1.6 K/mcL (0.6-4.6); Lymphocytes % 5.3 %; Mean Corpuscular HGB Conc 33.2 g/dL (31.6-35.5); Mean Corpuscular Hemoglobin 27.8 pg (28.0-33.3); Mean Corpuscular Volume 83.7 fL (83.0-100.0); Mean Platelet Volume 10.1 fL (9.4-12.4); Monocytes # 1.1 K/mcL (0.0-1.3); Monocytes % 3.7 %; Neutrophils # 26.5 K/mcL (1.6-8.9); Platelet Count 339 K/mcL (140-400); Red Cell Distribution Width 15.1 % (11.5-14.5); Segmented Neutrophils % 87.7 %
[2017-03-18 01:45] LABS: INR 1.4; Prothrombin Time 15.3 Seconds (9.4-12.1)
[2017-03-18 01:48] LABS: Activated Partial Thrombo Time 36.1 Seconds (26.0-36.0)
[2017-03-18 02:00] LABS: Platelet Estimate Normal (Normal)
[2017-03-18 02:01] LABS: Hypersegmented Neutrophils Present (Not Present)
[2017-03-18 02:02] LABS: Burr Cells 1+ (Not Present)
[2017-03-18] MEDS: Ondansetron 4 MG/2 ML VIAL IVP PRN ×3 (04:40→15:30)
[2017-03-18] MEDS: Vancomycin 1,250 MG in D5% in Water 250 ML IVPB SCH ×2 (04:43→18:06)
[2017-03-18] MEDS: *HR* Enoxaparin 80 MG/0.8 ML SYRINGE SQ SCH (04:44)
[2017-03-18 05:42] LABS: Hematocrit 20.3 % (35.3-44.9); Hemoglobin 6.7 g/dL (11.5-15.4); Mean Corpuscular Hemoglobin 27.7 pg (28.0-33.3); Mean Corpuscular Volume 83.9 fL (83.0-100.0); Mean Platelet Volume 9.4 fL (9.4-12.4); Platelet Count 305 K/mcL (140-400); Red Blood Count 2.42 M/mcL (3.82-4.97); Red Cell Distribution Width 14.8 % (11.5-14.5)
[2017-03-18 05:57] LABS: Alanine Aminotransferase 17 Units/L (0-55); Albumin 1.1 g/dL (3.5-5.0); Albumin/Globulin Ratio 0.3 (1.1-2.2); Alkaline Phosphatase 123 Units/L (38-126); Aspartate Amino Transferase 21 Units/L (5-34); BUN/Creatinine Ratio 18 (6-26); Bilirubin,Direct 0.5 mg/dL (0.0-0.5); Bilirubin,Indirect 0.4 mg/dL (0.0-1.2); Bilirubin,Total 0.9 mg/dL (0.2-1.2); Blood Urea Nitrogen 12 mg/dL (7-20); Calcium 7.2 mg/dL (8.6-10.8); Carbon Dioxide 26 mEq/L (19-29); Chloride 105 mEq/L (98-109); Globulin 4.4 g/dL (2.4-3.5); Glucose 104 mg/dL (70-99); Magnesium 1.3 mg/dL (1.6-2.6); Osmolality,Calculated 276 (280-300); Potassium 3.8 mEq/L (3.5-4.5); Sodium 133 mEq/L (136-145); Total Protein 5.5 g/dL (6.0-8.3); eGFR For African Americans > 60 (> 60); eGFR For Non-African Americans > 60 (> 60)
[2017-03-18 06:04] LABS: Lymphocytes # 2.2 K/mcL (0.6-4.6); Monocytes # 0.6 K/mcL (0.0-1.3); Neutrophils # 25.2 K/mcL (1.6-8.9); Platelet Estimate Normal (Normal)
[2017-03-18 06:05] LABS: Anisocytosis 1+ (Not Present)
[2017-03-18] MEDS: 0.9 % Sodium Chloride 1,000 ML IVC SCH ×4 (09:55→13:07)
[2017-03-18] MEDS: Acetaminophen 325 MG TABLET PO PRN (09:58)
[2017-03-18] MEDS ORDERED: *HR* Morphine 2 MG/ML SYRINGE IVP ONE (10:07)
--- NOTE | 2017-03-18 12:45 | Internal Med Progress Note ---
Date of Encounter: 03/18/17 Time of Encounter: 12:40 - Assessment and plan (1) Severe sepsis Current Visit: Yes Status: Acute Assessment and plan: 36-year-old female with past medical history hepatitis C, mood disorder and prior use of IV drugs. Per patient, she has not use drugs in several years. She presented with generalized weakness. CT chest showed moderate right and small left pleural effusion, appeared to be partially loculated. Cardiac revealed a mobile echodensity on the tricuspid valve consistent with vegetation. 03/13: Blood cultures are positive for GPC, PCR shows MRSA. CT of the abdomen and pelvis revealed a right piriformis muscle myositis. Source is infective endocarditis, MRSA bacteremia, located pleural effusion, myositis. 03/13: blood cultures 2/2 positive for MRSA. 03/14: Patient underwent right-sided thoracentesis with removal of 450 ml of exudative pleural fluid. preliminary stain shows no bacteria. 03/15: blood cultures 2/2 positive for GPC. 03/17: blood cultures 2/2 positive for GPC. 03/18: repeat blood cultures. sepsis has not resolved, still tachycardic and WBC trended down to 30. Temp curve is trending down and highest was 99 in last 24 hours. Appreciate pulmonology and ID input. Continue empiric antibiotics with IV vancomycin. Continue IV fluid hydration. check CXR. (2) Septic embolism Current Visit: Yes Status: Acute Assessment and plan: Plan as above. (3) Infective endocarditis Current Visit: Yes Status: Acute Assessment and plan: Plan as above. Qualifiers: Infective endocarditis organism: bacterial Chronicity: acute Qualified Code(s): I33.0 - Acute and subacute infective endocarditis (4) Bacteremia Current Visit: Yes Status: Acute Assessment and plan: Plan as above. (5) Loculated pleural effusion Current Visit: Yes Status: Acute Assessment and plan: Plan as above. (6) Septic arthritis Current Visit: Yes Status: Acute Assessment and plan: MRI shows septic arthritis of Left sacroiliac joint but no abscess to drain. continue empiric antibiotics. Qualifiers: Septic arthritis location: vertebra Septic arthritis organism: staphylococcal Qualified Code(s): M00.08 - Staphylococcal arthritis, vertebrae (7) Myositis Current Visit: Yes Status: Acute Assessment and plan: Right piriform muscle myositis. As above. Qualifiers: Myositis type: infective Myositis location: other site Qualified Code(s) : M60.08 - Infective myositis, other site (8) Skin rash Current Visit: Yes Status: Acute Assessment and plan: 03/17: patient noticed multiple areas of petechiae in her legs. secondary to Infective endocarditis and MRSA bacteremia. (9) Delirium Current Visit: Yes Status: Acute Assessment and plan: acute encephalopathy secondary to severe sepsis from IE. check CT head to r/o embolic events. (10) DVT (deep venous thrombosis) Current Visit: Yes Status: Suspected Assessment and plan: CT of the abdomen and pelvis revealed suspected internal iliac vein thrombophlebitis. received Lovenox q12hr. will repeat CTAP and hold lovenox due to petechiae. Qualifiers: DVT location: lower extremity Affected thrombotic vein of extremity: iliac Chronicity: acute Laterality: right Qualified Code(s): I82.421 - Acute embolism and thrombosis of right iliac vein (11) IV drug user Current Visit: Yes Status: Chronic Assessment and plan: negative HIV. (12) Hepatitis C Current Visit: Yes Status: Chronic Qualifiers: Viral hepatitis chronicity: chronic Hepatic coma status: without hepatic coma Qualified Code(s): B18.2 - Chronic viral hepatitis C (13) Elevated transaminase level Current Visit: Yes Status: Acute Assessment and plan: resolved. Secondary to severe sepsis. Closed monitor LFTs. - Subjective Interval history: Patient complains of severe pain all over. She also developed a leg rash on her extremities yesterday evening. - Constitutional Vitals: Temp Pulse Resp BP Pulse Ox 98.7 F 111 41 117/75 92 03/18/17 10:43 03/18/17 10:43 03/18/17 10:43 03/18/17 10:43 03/18/17 10:43 General appearance: Present: cooperative, A&O X 3, pleasant, no acute distress, answers questions appropriately - Eye Eye exam: Present: PERRL, sclera anicteric - Neck Neck exam general surgery: Present: supple, trachea midline. Absent: lymphadenopathy - Respiratory Respiratory exam: Present: decreased breath sounds - Cardiovascular Cardiovascular exam: Present: systolic murmur (at tricuspid area), tachycardia - Back Exam Back exam: Present: tenderness - Neurological Exam Neurological exam: Present: alert, oriented X3. Absent: facial droop, speech deficit - Skin Skin exam: Present: petechiae (there are multiple conglomerates of petechiae in both legs. no purpura.) Internal Medicine: Result - Labs CBC & Chem 7: 03/18/17 05:30 03/18/17 05:30 Labs: Short CBC 03/18/17 03/18/17 Range/Units 00:32 05:30 WBC 30.2 H* 28.0 H (4.3-11.1) K/mcL Hgb 7.5 L 6.7 L (11.5-15.4) g/dL Hct 22.6 L 20.3 L (35.3-44.9) % Plt Count 339 305 (140-400) K/mcL Neutrophils # 26.5 H 25.2 H (1.6-8.9) K/mcL BMP 03/18/17 05:30 Sodium 133 L Potassium 3.8 Chloride 105 Carbon Dioxide 26 BUN 12 Creatinine 0.65 Glucose 104 H Calcium 7.2 L Liver Function 03/18/17 Range/Units 05:30 Total Bilirubin 0.9 (0.2-1.2) mg/dL Direct Bilirubin 0.5 (0.0-0.5) mg/dL AST 21 (5-34) Units/L ALT 17 (0-55) Units/L Alkaline Phosphatase 123 (38-126) Units/L Albumin 1.1 L (3.5-5.0) g/dL - ABG Interpretation ABG results: PT/INR, D-dimer PT 15.3 Seconds (9.4-12.1) H 03/18/17 00:32 Consult Discharge Plan - Plan Referrals: Afsaneh Worley, [facility] [Advanced Practice Nurse] - (PLEASE TAKE WITH YOU TO YOUR APPOINTMENT A MONTH'S WORTH OF INCOME, THEY DO A SLIDING SCALE OF WHAT YOU WOULD HAVE TO PAY. PLEASE SHOW UP 20 MINS. EARLY FOR YOUR APPOINTMENT TO FILL OUT PAPER WORK. IF YOU NEED TO CANCEL PLEASE CALL [phone] WITH IN 24 HOURS OF YOUR APPOINTMENT TIME.)
[2017-03-18] MEDS ORDERED: *HR* HYDROmorphone 2 MG TABLET PO PRN (13:28)
[2017-03-18] MEDS: Ketorolac 15 MG/ML VIAL IVP PRN (13:48)
[2017-03-18] MEDS ORDERED: Furosemide 20 MG/2 ML VIAL IVP ONE (21:35)
[2017-03-18] MEDS ORDERED: Furosemide 40 MG/4 ML VIAL ONE (21:35)
[2017-03-18] MEDS ORDERED: Furosemide 40 MG/4 ML VIAL IVP ONE (21:53)
[2017-03-18] MEDS ORDERED: *HR* LORazepam 2 MG/ML VIAL IVP ONE (22:03)
[2017-03-19 05:01] LABS: Basophils % 0.1 %; Hematocrit 19.6 % (35.3-44.9); Hemoglobin 6.5 g/dL (11.5-15.4); Immature Granulocytes % 1.7 % (0-4); Lymphocytes # 1.9 K/mcL (0.6-4.6); Mean Corpuscular HGB Conc 33.2 g/dL (31.6-35.5); Mean Corpuscular Hemoglobin 27.9 pg (28.0-33.3); Mean Corpuscular Volume 84.1 fL (83.0-100.0); Mean Platelet Volume 9.3 fL (9.4-12.4); Monocytes # 1.1 K/mcL (0.0-1.3); Monocytes % 5.4 %; Neutrophils # 17.4 K/mcL (1.6-8.9); Platelet Count 362 K/mcL (140-400); Red Blood Count 2.33 M/mcL (3.82-4.97); Red Cell Distribution Width 14.7 % (11.5-14.5); Segmented Neutrophils % 83.8 %
[2017-03-19 06:37] LABS: Alanine Aminotransferase 16 Units/L (0-55); Albumin/Globulin Ratio 0.3 (1.1-2.2); Alkaline Phosphatase 115 Units/L (38-126); Aspartate Amino Transferase 27 Units/L (5-34); BUN/Creatinine Ratio 15 (6-26); Bilirubin,Direct 0.4 mg/dL (0.0-0.5); Bilirubin,Indirect 0.4 mg/dL (0.0-1.2); Bilirubin,Total 0.8 mg/dL (0.2-1.2); Blood Urea Nitrogen 10 mg/dL (7-20); Calcium 7.6 mg/dL (8.6-10.8); Carbon Dioxide 29 mEq/L (19-29); Chloride 100 mEq/L (98-109); Globulin 4.6 g/dL (2.4-3.5); Glucose 84 mg/dL (70-99); Magnesium 1.3 mg/dL (1.6-2.6); Osmolality,Calculated 274 (280-300); Potassium 3.6 mEq/L (3.5-4.5); Sodium 133 mEq/L (136-145); Total Protein 5.8 g/dL (6.0-8.3); eGFR For African Americans > 60 (> 60); eGFR For Non-African Americans > 60 (> 60)
[2017-03-19 06:38] LABS: Albumin 1.2 g/dL (3.5-5.0)
[2017-03-19] MEDS: Vancomycin 1,250 MG in D5% in Water 250 ML IVPB SCH ×2 (06:47→21:43)
[2017-03-19] MEDS: Ketorolac 15 MG/ML VIAL IVP PRN ×2 (06:48→23:17)
[2017-03-19] MEDS ORDERED: Magnesium Sulfate 2 GM in D5% in Water 100 ML IVPB ONE (09:01)
[2017-03-19] MEDS: *HR* HYDROmorphone 2 MG TABLET PO PRN ×3 (11:04→23:17)
[2017-03-19] MEDS: Magnesium Oxide 400 MG TABLET PO SCH ×2 (11:04→21:44)
[2017-03-19] MEDS: *HR* Enoxaparin 40 MG/0.4 ML SYRINGE SQ SCH (11:11)
[2017-03-19] MEDS: Levalbuterol Neb 0.63 MG/3 ML IH SCH ×3 (11:13→20:31)
[2017-03-19] MEDS ORDERED: 0.9 % Sodium Chloride 250 ML ONE (13:37)
--- NOTE | 2017-03-19 16:26 | Internal Med Progress Note ---
Date of Encounter: 03/19/17 Time of Encounter: 10:00 - Assessment and plan (1) Severe sepsis Current Visit: Yes Status: Acute Assessment and plan: 36-year-old female with past medical history hepatitis C, mood disorder and prior use of IV drugs. Per patient, she has not use drugs in several years. She presented with generalized weakness. CT chest showed moderate right and small left pleural effusion, appeared to be partially loculated. Cardiac revealed a mobile echodensity on the tricuspid valve consistent with vegetation. 03/13: Blood cultures are positive for GPC, PCR shows MRSA. CT of the abdomen and pelvis revealed a right piriformis muscle myositis. Source is infective endocarditis, MRSA bacteremia, located pleural effusion, myositis. 03/13: blood cultures 2/2 positive for MRSA. 03/14: Patient underwent right-sided thoracentesis with removal of 450 ml of exudative pleural fluid. preliminary stain shows no bacteria. 03/15: blood cultures 2/2 positive for MRSA. 03/17: blood cultures 2/2 positive for MRSA. 03/18: blood cultures taken. 03/19: Sepsis has not resolved, still tachycardic, WBC trending down to 20, max temp 100.8. Appreciate pulmonology and ID input. Continue empiric antibiotics with IV vancomycin. Continue IV fluid hydration. (2) Acute respiratory failure with hypoxemia Current Visit: Yes Status: Acute Assessment and plan: secondary to pleural effusion and embolic lung cavitations. 03/13: CTA of chest showed no PE, numerous scattered bilateral pulmonary nodules many of which demonstrate central cavitation, moderate right and small left pleural effusions. Echocardiogram revealed LVEF 55%, mobile echodensity attached to the tricuspid valve consistent with a vegetation, severe tricuspid regurgitation. 03/14: Patient underwent right-sided thoracentesis with removal of 450 ml of exudative pleural fluid. preliminary stain shows no bacteria. 03/18: CT chest showed bilateral pleural effusions, partially located on the right. Airspace disease in the middle lower lingula. Multiple solid and cavitary nodules. Patient is requiring 2 L of oxygen to keep saturations above 90%. Continue oxygen supplementation, nebulizations, IV vancomycin. plan for repeat thoracentesis in AM. (3) Septic embolism Current Visit: Yes Status: Acute Assessment and plan: Plan as above. (4) Infective endocarditis Current Visit: Yes Status: Acute Assessment and plan: Plan as above. Qualifiers: Infective endocarditis organism: bacterial Chronicity: acute Qualified Code(s): I33.0 - Acute and subacute infective endocarditis (5) Bacteremia Current Visit: Yes Status: Acute Assessment and plan: Plan as above. (6) Loculated pleural effusion Current Visit: Yes Status: Acute Assessment and plan: Plan as above. (7) Septic arthritis Current Visit: Yes Status: Acute Assessment and plan: MRI shows septic arthritis of Left sacroiliac joint but no abscess to drain. continue empiric antibiotics. Qualifiers: Septic arthritis location: vertebra Septic arthritis organism: staphylococcal Qualified Code(s): M00.08 - Staphylococcal arthritis, vertebrae (8) Myositis Current Visit: Yes Status: Acute Assessment and plan: Right piriform muscle myositis. As above. Qualifiers: Myositis type: infective Myositis location: other site Qualified Code(s) : M60.08 - Infective myositis, other site (9) Skin rash Current Visit: Yes Status: Acute Assessment and plan: 03/17: patient noticed multiple areas of petechiae in her legs. secondary to Infective endocarditis and MRSA bacteremia. (10) Delirium Current Visit: Yes Status: Acute Assessment and plan: acute encephalopathy secondary to severe sepsis from IE. check CT head to r/o embolic events. (11) DVT (deep venous thrombosis) Current Visit: Yes Status: Suspected Assessment and plan: CT of the abdomen and pelvis revealed suspected internal iliac vein thrombophlebitis. received Lovenox q12hr. will repeat CTAP and hold lovenox due to petechiae. Qualifiers: DVT location: lower extremity Affected thrombotic vein of extremity: iliac Chronicity: acute Laterality: right Qualified Code(s): I82.421 - Acute embolism and thrombosis of right iliac vein (12) IV drug user Current Visit: Yes Status: Chronic Assessment and plan: negative HIV. (13) Hepatitis C Current Visit: Yes Status: Chronic Qualifiers: Viral hepatitis chronicity: chronic Hepatic coma status: without hepatic coma Qualified Code(s): B18.2 - Chronic viral hepatitis C (14) Elevated transaminase level Current Visit: Yes Status: Resolved Assessment and plan: resolved. Secondary to severe sepsis. Closed monitor LFTs. - Subjective Interval history: Patient was sleeping comfortable, she did wake up easily. she complains of pain all over - Constitutional Vitals: Temp Pulse Resp BP Pulse Ox 98.6 F 100 30 128/87 93 03/19/17 15:58 03/19/17 15:58 03/19/17 15:58 03/19/17 15:58 03/19/17 15:58 General appearance: Present: cooperative, A&O X 3, pleasant, no acute distress, answers questions appropriately Exam: patient was sleeping comfortable when I entered the room, she did wake up easily. - Neck Neck exam general surgery: Present: supple, trachea midline. Absent: lymphadenopathy - Respiratory Respiratory exam: Present: decreased breath sounds - Cardiovascular Cardiovascular exam: Present: tachycardia - GI/Abdominal GI/Abdominal exam: Present: normal bowel sounds, soft. Absent: distended, tenderness - Extremities Exam Extremities exam: Absent: pedal edema - Back Exam Back exam: Absent: CVA tenderness (L), CVA tenderness (R) - Neurological Exam Neurological exam: Present: alert, oriented X3. Absent: facial droop, speech deficit - Skin Skin exam: Present: petechiae (fading conglomerate of petechiae in her legs.) Internal Medicine: Result - Labs CBC & Chem 7: 03/19/17 04:52 03/19/17 04:52 Labs: Short CBC 03/19/17 Range/Units 04:52 WBC 20.8 H (4.3-11.1) K/mcL Hgb 6.5 L (11.5-15.4) g/dL Hct 19.6 L (35.3-44.9) % Plt Count 362 (140-400) K/mcL Neutrophils # 17.4 H (1.6-8.9) K/mcL BMP 03/19/17 04:52 Sodium 133 L Potassium 3.6 Chloride 100 Carbon Dioxide 29 BUN 10 Creatinine 0.67 Glucose 84 Calcium 7.6 L Liver Function 03/19/17 Range/Units 04:52 Total Bilirubin 0.8 (0.2-1.2) mg/dL Direct Bilirubin 0.4 (0.0-0.5) mg/dL AST 27 (5-34) Units/L ALT 16 (0-55) Units/L Alkaline Phosphatase 115 (38-126) Units/L Albumin 1.2 L (3.5-5.0) g/dL - ABG Interpretation ABG results: PT/INR, D-dimer PT 15.3 Seconds (9.4-12.1) H 03/18/17 00:32 - Impressions Impressions Chest CT 03/18/17 21:53 IMPRESSION: 1. Bilateral pleural effusions, partially loculated on the right. No convincing evidence for empyema is seen. 2. New airspace disease in the middle lobe and lingula could represent atelectasis or pneumonia. 3. Multiple solid and cavitary nodules are again seen likely representing septic emboli. 4. Pericardial effusion. D/ / Gurpreet Mckeon MD / Gurpreet Mckeon MD Interpreting Provider: Gurpreet Mckeon MD Consult Discharge Plan - Plan Referrals: Afsaneh Worley, SENIOR SECURITY ANALYST [Advanced Practice Nurse] - (PLEASE TAKE WITH YOU TO YOUR APPOINTMENT A MONTH'S WORTH OF INCOME, THEY DO A SLIDING SCALE OF WHAT YOU WOULD HAVE TO PAY. PLEASE SHOW UP 20 MINS. EARLY FOR YOUR APPOINTMENT TO FILL OUT PAPER WORK. IF YOU NEED TO CANCEL PLEASE CALL [phone] WITH IN 24 HOURS OF YOUR APPOINTMENT TIME.)
[2017-03-19] MEDS: Acetaminophen 325 MG TABLET PO PRN (17:34)
[2017-03-20] MEDS ORDERED: *HR* LORazepam 2 MG/ML VIAL IVP ONE (05:09)
[2017-03-20 05:18] LABS: Basophils # 0.1 K/mcL (0.0-0.2); Basophils % 0.3 %; Eosinophils # 0.1 K/mcL (0.0-0.6); Eosinophils % 0.8 %; Hematocrit 22.9 % (35.3-44.9); Hemoglobin 7.8 g/dL (11.5-15.4); Lymphocytes # 1.7 K/mcL (0.6-4.6); Lymphocytes % 9.5 %; Mean Corpuscular HGB Conc 34.1 g/dL (31.6-35.5); Mean Corpuscular Hemoglobin 29.1 pg (28.0-33.3); Mean Corpuscular Volume 85.4 fL (83.0-100.0); Monocytes # 1.1 K/mcL (0.0-1.3); Neutrophils # 14.8 K/mcL (1.6-8.9); Platelet Count 332 K/mcL (140-400); Red Blood Count 2.68 M/mcL (3.82-4.97); Red Cell Distribution Width 14.5 % (11.5-14.5); Segmented Neutrophils % 81.4 %
[2017-03-20 05:24] LABS: INR 1.4; Prothrombin Time 15.2 Seconds (9.4-12.1)
[2017-03-20 05:45] LABS: Alanine Aminotransferase 17 Units/L (0-55); Albumin/Globulin Ratio 0.3 (1.1-2.2); Alkaline Phosphatase 101 Units/L (38-126); Aspartate Amino Transferase 32 Units/L (5-34); BUN/Creatinine Ratio 13 (6-26); Bilirubin,Direct 0.5 mg/dL (0.0-0.5); Bilirubin,Indirect 0.3 mg/dL (0.0-1.2); Bilirubin,Total 0.8 mg/dL (0.2-1.2); Blood Urea Nitrogen 8 mg/dL (7-20); Calcium 7.7 mg/dL (8.6-10.8); Carbon Dioxide 26 mEq/L (19-29); Chloride 99 mEq/L (98-109); Globulin 4.6 g/dL (2.4-3.5); Glucose 84 mg/dL (70-99); Magnesium 1.5 mg/dL (1.6-2.6); Osmolality,Calculated 272 (280-300); Potassium 3.5 mEq/L (3.5-4.5); Sodium 132 mEq/L (136-145); Total Protein 5.9 g/dL (6.0-8.3); eGFR For African Americans > 60 (> 60); eGFR For Non-African Americans > 60 (> 60)
[2017-03-20 05:49] LABS: Albumin 1.3 g/dL (3.5-5.0)
[2017-03-20] MEDS: *HR* Enoxaparin 40 MG/0.4 ML SYRINGE SQ SCH (06:54)
[2017-03-20] MEDS ORDERED: Magnesium Sulfate 1 GM in D5% in Water 100 ML IVPB ONE (07:42)
[2017-03-20] MEDS: Vancomycin 1,250 MG in D5% in Water 250 ML IVPB SCH ×2 (08:19→17:27)
[2017-03-20] MEDS: Ketorolac 15 MG/ML VIAL IVP PRN ×2 (08:35→17:27)
[2017-03-20] MEDS: Levalbuterol Neb 0.63 MG/3 ML IH SCH ×3 (10:48→20:30)
--- NOTE | 2017-03-20 10:51 | Infectious Disease Progress No ---
Date of Encounter: 03/20/17 Time of Encounter: 10:38 - Assessment and Plan (1) Severe sepsis Current Visit: Yes Status: Acute The patient had four SIRS criteria plus hypotension and elevated liver enzymes on admission. Likely secondary to bacteremia and endocarditis. She has been afebrile >24 hours. WBC is trending down. Tachycardia is improved. Blood cultures drawn 03/13/17 are positive 2/2 sets for MRSA. Repeat blood cultures drawn 03/15/17 are positive 1/2 sets for MRSA. Additional blood cultures drawn 03/17/17 are positive 2/2 sets. Additional blood cultures drawn 03/18/17 are NGTD. (2) Bacteremia Current Visit: Yes Status: Acute Causative organism MRSA. Source likely IV drug use. Complicated due to septic emboli in the lungs. Blood cultures drawn 03/13/17 are positive 2/2 sets for MRSA. Repeat blood cultures drawn 03/15/17 are positive 1/2 sets for MRSA. Additional blood cultures drawn 03/17/17 are positive 2/2 sets. Additional blood cultures drawn 03/18/17 are NGD x 2 sets. The patient has two major and two minor Modified Lares's Criteria. TTE completed 03/13/17 showed a mobile echodensity on the tricuspid valve consistent with vegetation. Continue Vancomycin IV. Pharmacy to dose. Goal trough ~15. Most recent vanc trough 20.1 Discussed with Sonja ShultzD. States the last dose was hung three hours late, so this is not a true trough. Patient is likely around 17. Duration of treatment depends on the clinical picture, but likely 6 weeks of IV antibiotics due to the endocarditis. Monitor renal function and for drug toxicity and dose-adjust antibiotics. Consult VAT for PICC line placement. (3) Infective endocarditis Current Visit: Yes Status: Acute Causative organism MRSA. TTE completed 03/13/17 showed mobile echodensity on the tricuspid valve consistent with vegetation. Likely secondary to MRSA bacteremia. Antibiotic recommendations as above. Qualifiers: Infective endocarditis organism: bacterial Chronicity: acute Qualified Code(s): I33.0 - Acute and subacute infective endocarditis (4) Septic embolism Current Visit: Yes Status: Acute CT scan of the chest shows bilateral pulmonary nodules with central cavitation concerning for septic emboli versus atypical infection. Likely secondary to right-sided endocarditis. Pulmonology consulted and following. Feels that given the clinical picture, these nodules are likely septic emboli. Continue antibiotics as above. (5) Abscess Current Visit: Yes Status: Ruled-out MRI of the L-spine showed findings concerning for possible septic left sacroiliac arthritis with abscess. CT scan negative for abscess. (6) Septic arthritis Current Visit: Yes Status: Acute MRI shows septic arthritis of the left sacroiliac joint with abscess. Consult Dr. Bean for further recommendations. Continue antibiotics as above. Qualifiers: Septic arthritis location: vertebra Septic arthritis organism: staphylococcal Qualified Code(s): M00.08 - Staphylococcal arthritis, vertebrae (7) Loculated pleural effusion Current Visit: Yes Status: Acute CT of the chest shows a moderate right and small left pleural effusions that are partially loculated. IR consulted. Status post right thoracentesis 03/14/17. 450ml red fluid drained per IR nurse notes. Appears exudative, but culture is negative. Left thoracentesis cancelled due to the fact that it is very small. Repeat CT scan completed 03/18/17 shows bilateral pleural effusions, partially loculated on the right, but no convincing evidence for empyema. Pulmonology consulted and following. (8) Myositis Current Visit: Yes Status: Acute Location: Right piriformis muscle. CT of the abdomen and pelvis shows right piriformis myositis. Continue antibiotics as above. Qualifiers: Myositis type: infective Myositis location: other site Qualified Code(s) : M60.08 - Infective myositis, other site (9) Elevated transaminase level Current Visit: Yes Status: Resolved Etiology unclear: Chronic Hep C. vs. acute infection vs. other. Resolved. (10) Back pain Current Visit: Yes Status: Acute Likely secondary to right piriformis myositis and left sacroiliac septic arthritis. Patient continues to complain of severe pain, but appears improved on clinical exam. MRI of the L-spine shows septic arthritis of the left sacroiliac joint. CT scan of the pelvis ruled out presence of associated abscess. Pain management per the primary team. Qualifiers: Back pain location: low back pain Chronicity: acute Back pain laterality : midline Sciatica presence: without sciatica Qualified Code(s): M54.5 - Low back pain (11) Hepatitis C Current Visit: Yes Status: Chronic Hep C antibody positive. Refer to GI as an outpatient for management. Qualifiers: Viral hepatitis chronicity: chronic Hepatic coma status: without hepatic coma Qualified Code(s): B18.2 - Chronic viral hepatitis C (12) IV drug user Current Visit: Yes Status: Chronic HIV non-reactive. Known Hep C positive. Hep A and Hep B non-reactive. - Subjective Interval history: Patient seen and examined. Weekend notes reviewed. No acute events noted overnight. Patient states that overall she feels a little better, but continues to have back pain. She denies fevers, chills, or rigors. She denies any headache or neck pain. She denies any chest pain, shortness of breath, or cough. She denies any nausea, vomiting, diarrhea, or constipation. She did not eat any breakfast this morning, but states she ate well yesterday afternoon and evening. She denies abdominal pain. She denies any urinary complaints She continues to complain of severe lower back pain. She denies any oral thrush or new skin lesions. Infect Dis PN-Objective Data - Labs CBC & Chem 7: 03/20/17 04:48 03/20/17 04:48 Labs: Laboratory Results - last 24 hr 03/19/17 03/20/17 03/20/17 09:31 04:48 04:48 WBC 18.2 H RBC 2.68 L Hgb 7.8 L Hct 22.9 L MCV 85.4 MCH 29.1 MCHC 34.1 RDW 14.5 Plt Count 332 MPV 10.0 Immature Gran % 2.0 Seg Neutrophils % 81.4 Lymphocytes % 9.5 Monocytes % 6.0 Eosinophils % 0.8 Basophils % 0.3 Neutrophils # 14.8 H Lymphocytes # 1.7 Monocytes # 1.1 Eosinophils # 0.1 Basophils # 0.1 PT INR Sodium 132 L Potassium 3.5 Chloride 99 Carbon Dioxide 26 BUN 8 Creatinine 0.62 Est GFR ( Amer) > 60 Est GFR (Non-Af Amer) > 60 BUN/Creatinine Ratio 13 Glucose 84 Calculated Osmolality 272 L Calcium 7.7 L Magnesium 1.5 L Total Bilirubin 0.8 Direct Bilirubin 0.5 Indirect Bilirubin 0.3 AST 32 ALT 17 Alkaline Phosphatase 101 Serum Total Protein 5.9 L Albumin 1.3 L Globulin 4.6 H Albumin/Globulin Ratio 0.3 L Vancomycin Trough Blood Type O NEGATIVE Antibody Screen POSITIVE Antibody Identification Anti-D Unknown Immunization MTS Gel Crossmatch See Detail 03/20/17 03/20/17 04:48 04:48 WBC RBC Hgb Hct MCV MCH MCHC RDW Plt Count MPV Immature Gran % Seg Neutrophils % Lymphocytes % Monocytes % Eosinophils % Basophils % Neutrophils # Lymphocytes # Monocytes # Eosinophils # Basophils # PT 15.2 H INR 1.4 Sodium Potassium Chloride Carbon Dioxide BUN Creatinine Est GFR ( Amer) Est GFR (Non-Af Amer) BUN/Creatinine Ratio Glucose Calculated Osmolality Calcium Magnesium Total Bilirubin Direct Bilirubin Indirect Bilirubin AST ALT Alkaline Phosphatase Serum Total Protein Albumin Globulin Albumin/Globulin Ratio Vancomycin Trough 20.1 H* Blood Type Antibody Screen Antibody Identification MTS Gel Crossmatch Cultures: Cultures 03/15/17 05:47 Blood Culture - Final Peripheral Venipuncture No growth. 03/18/17 13:33 Blood Culture - Preliminary Peripheral Venipuncture No growth. 03/18/17 13:23 Blood Culture - Preliminary Peripheral Venipuncture No growth. 03/17/17 03:28 Blood Culture - Final Peripheral Venipuncture Methicillin Resistant S.aureus 03/17/17 03:25 Blood Culture - Final Peripheral Venipuncture Methicillin Resistant S.aureus 03/15/17 05:47 Blood Culture - Final Peripheral Venipuncture Methicillin Resistant S.aureus 03/14/17 13:30 Body Fluid Culture - Final Pleural Fluid 03/14/17 13:30 Acid Fast Stain - Final Pleural Fluid Serology 03/18/17 03/17/17 03/15/17 Range/Units 22:26 03:25 05:47 Urine Test Negative (Negative) Pleural Fluid Volume mL Pleural Appearance (Clear) Pleural RBC (0.000 - 0.002) M/mcL Pleural Tot Nuc Cell (0-1000) TNC/mcL Pleural Neutrophils % Pleural Band Neuts Pleural Eosinophils % Pleural Basophils Pleural Lymphocytes % % Pleural Monocytes % % Pleural Other Cells % Pleural Total Protein (No Ref Range) g/dL Pleural LDH (No Ref Range) Units/L A. baumannii (PCR) Not Detected Not Detected (Not Detect) Claribel albicans (PCR) Not Detected Not Detected (Not Detect) C. glabrata (PCR) Not Detected Not Detected (Not Detect) C. krusei (PCR) Not Detected Not Detected (Not Detect) C. parapsilosis (PCR) Not Detected Not Detected (Not Detect) C. tropicalis (PCR) Not Detected Not Detected (Not Detect) Enterobacteriac sp PCR Not Detected Not Detected (Not Detect) E. cloacae complex PCR Not Detected Not Detected (Not Detect) Enterococcus sp PCR Not Detected Not Detected (Not Detect) E. coli (PCR) Not Detected Not Detected (Not Detect) H. influenzae (PCR) Not Detected Not Detected (Not Detect) Hepatitis A IgM Ab (Nonreactive) Hep Bs Antigen (Nonreactive) Hep B Core IgM Ab (Nonreactive) Hepatitis C Ab Screen (Nonreactive) HIV Ag/Ab Combo Qual (Nonreactive) Klebsiella oxytoca PCR Not Detected Not Detected (Not Detect) Klebsiella pneumoniae Not Detected Not Detected (Not Detect) List. monocytogenes PCR Not Detected Not Detected (Not Detect) N. meningitidis (PCR) Not Detected Not Detected (Not Detect) Proteus species (PCR) Not Detected Not Detected (Not Detect) Serratia marcescens PCR Not Detected Not Detected (Not Detect) Staphylococcus sp PCR DETECTED A DETECTED A (Not Detect) Staph aureus (PCR) DETECTED A DETECTED A (Not Detect) mecA-Methicil Res Gene DETECTED A DETECTED A (Not Detect) Streptococcus sp PCR Not Detected Not Detected (Not Detect) Group A Strep DNA Not Detected Not Detected (Not Detect) Group B Strep (PCR) Not Detected Not Detected (Not Detect) Strep pneumoniae (PCR) Not Detected Not Detected (Not Detect) P. aeruginosa (PCR) Not Detected Not Detected (Not Detect) Angi/B-Vanco Res Genes Not Detected N/A (Not Detect) KPC (blaKPC) Detect PCR Not Detected N/A (Not Detect) 03/14/17 03/14/17 03/14/17 Range/Units 13:30 05:23 05:23 Urine Test (Negative) Pleural Fluid Volume 500.0 mL Pleural Appearance Bloody A (Clear) Pleural RBC 0.091 H (0.000 - 0.002) M/mcL Pleural Tot Nuc Cell 6363 H (0-1000) TNC/mcL Pleural Neutrophils 80.0 % Pleural Band Neuts Test Not Performed Pleural Eosinophils 2.0 % Pleural Basophils Test Not Performed Pleural Lymphocytes % 15.0 % Pleural Monocytes % 3.0 % Pleural Other Cells % Test Not Performed Pleural Total Protein 3.3 (No Ref Range) g/dL Pleural LDH 1016 (No Ref Range) Units/L A. baumannii (PCR) (Not Detect) Claribel albicans (PCR) (Not Detect) C. glabrata (PCR) (Not Detect) C. krusei (PCR) (Not Detect) C. parapsilosis (PCR) (Not Detect) C. tropicalis (PCR) (Not Detect) Enterobacteriac sp PCR (Not Detect) E. cloacae complex PCR (Not Detect) Enterococcus sp PCR (Not Detect) E. coli (PCR) (Not Detect) H. influenzae (PCR) (Not Detect) Hepatitis A IgM Ab Nonreactive (Nonreactive) Hep Bs Antigen Nonreactive (Nonreactive) Hep B Core IgM Ab Nonreactive (Nonreactive) Hepatitis C Ab Screen Reactive H (Nonreactive) HIV Ag/Ab Combo Qual Nonreactive (Nonreactive) Klebsiella oxytoca PCR (Not Detect) Klebsiella pneumoniae (Not Detect) List. monocytogenes PCR (Not Detect) N. meningitidis (PCR) (Not Detect) Proteus species (PCR) (Not Detect) Serratia marcescens PCR (Not Detect) Staphylococcus sp PCR (Not Detect) Staph aureus (PCR) (Not Detect) mecA-Methicil Res Gene (Not Detect) Streptococcus sp PCR (Not Detect) Group A Strep DNA (Not Detect) Group B Strep (PCR) (Not Detect) Strep pneumoniae (PCR) (Not Detect) P. aeruginosa (PCR) (Not Detect) Angi/B-Vanco Res Genes (Not Detect) KPC (blaKPC) Detect PCR (Not Detect) Exam - Constitutional Vitals: Temp Pulse Resp BP Pulse Ox 99.2 F 98 28 106/71 96 03/20/17 07:04 03/20/17 07:04 03/20/17 07:04 03/20/17 07:04 03/20/17 08:45 General appearance: average body habitus, cooperative, no acute distress - Head Head exam: Present: atraumatic, normal inspection, normocephalic - Eye Eye exam: Present: EOMI, normal appearance, PERRL Pupils: Present: normal accommodation Additional comments: No subconjunctival hemorrhage noted. - ENT ENT exam: Present: mucous membranes moist - Neck Neck exam: Present: normal inspection - Respiratory Respiratory exam: Present: CTAB. Absent: rales, respiratory distress, rhonchi, wheezes - Cardiovascular Cardiovascular exam: Present: RRR, +S1, +S2 - GI/Abdominal GI/Abdominal exam: Present: normal bowel sounds, soft. Absent: distended, tenderness - Extremities Exam Extremities exam: Present: normal inspection, pedal edema (1+ BLE). Absent: joint swelling, tenderness Additional comments: No endocarditis stigmata noted. - Back Exam Back exam: Present: normal inspection, paraspinal tenderness (Left lower back, right lower back) - Neurological Exam Neurological exam: Present: alert, oriented X3, no focal deficits - Psychiatric Psychiatric exam: Present: normal affect, normal mood - Skin Skin exam: Present: dry, intact, normal color, warm Consult Discharge Plan - Plan Referrals: Afsaneh Worley, LD TEACHER [Advanced Practice Nurse] - (PLEASE TAKE WITH YOU TO YOUR APPOINTMENT A MONTH'S WORTH OF INCOME, THEY DO A SLIDING SCALE OF WHAT YOU WOULD HAVE TO PAY. PLEASE SHOW UP 20 MINS. EARLY FOR YOUR APPOINTMENT TO FILL OUT PAPER WORK. IF YOU NEED TO CANCEL PLEASE CALL [phone] WITH IN 24 HOURS OF YOUR APPOINTMENT TIME.) - Attending Attestation I examined this patient and my medical decision-making was reviewed with the Resident Physician. I agree with the documented findings, disposition and treatment plan as described except to the extent set forth below.
[2017-03-20] MEDS: *HR* HYDROmorphone 2 MG TABLET PO PRN ×2 (12:30→20:20)
--- NOTE | 2017-03-20 13:54 | Internal Med Progress Note ---
Date of Encounter: 03/20/17 Time of Encounter: 12:15 - Assessment and plan (1) Severe sepsis Current Visit: Yes Status: Acute Assessment and plan: 36-year-old female with past medical history hepatitis C, mood disorder and prior use of IV drugs. Per patient, she has not use drugs in several years. She presented with generalized weakness. CT chest showed moderate right and small left pleural effusion, appeared to be partially loculated. Cardiac revealed a mobile echodensity on the tricuspid valve consistent with vegetation. 03/13: Blood cultures are positive for GPC, PCR shows MRSA. CT of the abdomen and pelvis revealed a right piriformis muscle myositis. Source is infective endocarditis, MRSA bacteremia, located pleural effusion, myositis. 03/13: blood cultures 2/2 positive for MRSA. 03/14: Patient underwent right-sided thoracentesis with removal of 450 ml of exudative pleural fluid. preliminary stain shows no bacteria. 03/15: blood cultures 2/2 positive for MRSA. 03/17: blood cultures 2/2 positive for MRSA. 03/18: blood cultures 2/2 negative so far. 03/20: Sepsis is resolving, still tachycardic, WBC trending down to 18, max temp 100.2. Appreciate ID input. Continue empiric antibiotics with IV vancomycin. (2) Acute respiratory failure with hypoxemia Current Visit: Yes Status: Acute Assessment and plan: secondary to pleural effusion and embolic lung cavitations. 03/13: CTA of chest showed no PE, numerous scattered bilateral pulmonary nodules many of which demonstrate central cavitation, moderate right and small left pleural effusions. Echocardiogram revealed LVEF 55%, mobile echodensity attached to the tricuspid valve consistent with a vegetation, severe tricuspid regurgitation. 03/14: Patient underwent right-sided thoracentesis with removal of 450 ml of exudative pleural fluid. preliminary stain shows no bacteria. 03/18: CT chest showed bilateral pleural effusions, partially located on the right. Airspace disease in the middle lower lingula. Multiple solid and cavitary nodules. Patient is requiring 2 L of oxygen to keep saturations above 90%. Continue oxygen supplementation, nebulizations, IV vancomycin. (3) Septic embolism Current Visit: Yes Status: Acute Assessment and plan: Plan as above. (4) Infective endocarditis Current Visit: Yes Status: Acute Assessment and plan: Plan as above. Qualifiers: Infective endocarditis organism: bacterial Chronicity: acute Qualified Code(s): I33.0 - Acute and subacute infective endocarditis (5) Bacteremia Current Visit: Yes Status: Acute Assessment and plan: Plan as above. (6) Loculated pleural effusion Current Visit: Yes Status: Acute Assessment and plan: Plan as above. (7) Septic arthritis Current Visit: Yes Status: Acute Assessment and plan: MRI shows septic arthritis of Left sacroiliac joint but no abscess to drain. continue empiric antibiotics. Qualifiers: Septic arthritis location: vertebra Septic arthritis organism: staphylococcal Qualified Code(s): M00.08 - Staphylococcal arthritis, vertebrae (8) Myositis Current Visit: Yes Status: Acute Assessment and plan: Right piriform muscle myositis. As above. Qualifiers: Myositis type: infective Myositis location: other site Qualified Code(s) : M60.08 - Infective myositis, other site (9) Skin rash Current Visit: Yes Status: Acute Assessment and plan: 03/17: patient noticed multiple areas of petechiae in her legs. secondary to Infective endocarditis and MRSA bacteremia. resolving (10) Delirium Current Visit: Yes Status: Acute Assessment and plan: acute encephalopathy secondary to severe sepsis from IE. check CT head to r/o embolic events. (11) DVT (deep venous thrombosis) Current Visit: Yes Status: Suspected Assessment and plan: CT of the abdomen and pelvis revealed suspected internal iliac vein thrombophlebitis. received Lovenox q12hr. will repeat CTAP and hold lovenox due to petechiae. Qualifiers: DVT location: lower extremity Affected thrombotic vein of extremity: iliac Chronicity: acute Laterality: right Qualified Code(s): I82.421 - Acute embolism and thrombosis of right iliac vein (12) IV drug user Current Visit: Yes Status: Chronic Assessment and plan: negative HIV. (13) Hepatitis C Current Visit: Yes Status: Chronic Qualifiers: Viral hepatitis chronicity: chronic Hepatic coma status: without hepatic coma Qualified Code(s): B18.2 - Chronic viral hepatitis C (14) Elevated transaminase level Current Visit: Yes Status: Resolved Assessment and plan: resolved. Secondary to severe sepsis. Closed monitor LFTs. - Subjective Interval history: Patient reports pain all over. - Constitutional Vitals: Temp Pulse Resp BP Pulse Ox 98.4 F 86 36 113/73 92 03/20/17 10:43 03/20/17 10:43 03/20/17 10:43 03/20/17 10:43 03/20/17 10:43 General appearance: Present: cooperative, A&O X 3, pleasant, no acute distress, answers questions appropriately - Neck Neck exam general surgery: Present: supple, trachea midline. Absent: lymphadenopathy - Respiratory Respiratory exam: Present: decreased breath sounds - Cardiovascular Cardiovascular exam: Present: RRR - GI/Abdominal GI/Abdominal exam: Present: normal bowel sounds, soft. Absent: distended, tenderness - Extremities Exam Extremities exam: Absent: pedal edema - Back Exam Back exam: Absent: CVA tenderness (L), CVA tenderness (R) - Neurological Exam Neurological exam: Present: alert, oriented X3. Absent: pronater drift, facial droop, speech deficit - Skin Skin exam: Present: petechiae (decrease in size of petechia in legs) Internal Medicine: Result - Labs CBC & Chem 7: 03/20/17 04:48 03/20/17 04:48 Labs: Short CBC 03/20/17 Range/Units 04:48 WBC 18.2 H (4.3-11.1) K/mcL Hgb 7.8 L (11.5-15.4) g/dL Hct 22.9 L (35.3-44.9) % Plt Count 332 (140-400) K/mcL Neutrophils # 14.8 H (1.6-8.9) K/mcL BMP 03/20/17 04:48 Sodium 132 L Potassium 3.5 Chloride 99 Carbon Dioxide 26 BUN 8 Creatinine 0.62 Glucose 84 Calcium 7.7 L Liver Function 03/20/17 Range/Units 04:48 Total Bilirubin 0.8 (0.2-1.2) mg/dL Direct Bilirubin 0.5 (0.0-0.5) mg/dL AST 32 (5-34) Units/L ALT 17 (0-55) Units/L Alkaline Phosphatase 101 (38-126) Units/L Albumin 1.3 L (3.5-5.0) g/dL - ABG Interpretation ABG results: PT/INR, D-dimer PT 15.2 Seconds (9.4-12.1) H 03/20/17 04:48 Consult Discharge Plan - Plan Referrals: Afsaneh Worley, RESPIRATORY MANAGER [Advanced Practice Nurse] - (PLEASE TAKE WITH YOU TO YOUR APPOINTMENT A MONTH'S WORTH OF INCOME, THEY DO A SLIDING SCALE OF WHAT YOU WOULD HAVE TO PAY. PLEASE SHOW UP 20 MINS. EARLY FOR YOUR APPOINTMENT TO FILL OUT PAPER WORK. IF YOU NEED TO CANCEL PLEASE CALL [phone] WITH IN 24 HOURS OF YOUR APPOINTMENT TIME.)
[2017-03-20 18:47] LABS: Acinetobacter baumannii by PCR Not Detected (Not Detect); Candida albicans by PCR Not Detected (Not Detect); Candida glabrata by PCR Not Detected (Not Detect); Candida krusei by PCR Not Detected (Not Detect); Candida parapsilosis by PCR Not Detected (Not Detect); Candida tropicalis by PCR Not Detected (Not Detect); Enterococcus by PCR Not Detected (Not Detect); Escherichia coli by PCR Not Detected (Not Detect); Klebsiella oxytoca by PCR Not Detected (Not Detect); Klebsiella pneumoniae by PCR Not Detected (Not Detect); Pseudomonas aeruginosa by PCR Not Detected (Not Detect); Serratia marcescens by PCR Not Detected (Not Detect); Staphylococcus aureus by PCR ***DETECTED*** (Not Detect); Streptococcus agalactiae(B)PCR Not Detected (Not Detect); Streptococcus by PCR Not Detected (Not Detect); Streptococcus pneumoniae PCR Not Detected (Not Detect); Streptococcus pyogenes (A) PCR Not Detected (Not Detect); blaKPC Carbapenem-Resist Gene Not Detected (Not Detect); mecA Methicillin-Resist Gene ***DETECTED*** (Not Detect); vanA/B Vancomycin-Resist Genes Not Detected (Not Detect)
[2017-03-20] MEDS: Magnesium Oxide 400 MG TABLET PO SCH (20:20)
[2017-03-21] MEDS: Ketorolac 15 MG/ML VIAL IVP PRN ×2 (05:44→18:01)
[2017-03-21] MEDS: Vancomycin 1,250 MG in D5% in Water 250 ML IVPB SCH ×2 (05:48→18:01)
[2017-03-21] MEDS: *HR* Enoxaparin 40 MG/0.4 ML SYRINGE SQ SCH (05:49)
[2017-03-21 06:12] LABS: Basophils # 0.1 K/mcL (0.0-0.2); Basophils % 0.3 %; Eosinophils % 0.1 %; Hematocrit 23.2 % (35.3-44.9); Hemoglobin 7.8 g/dL (11.5-15.4); Immature Granulocytes % 1.3 % (0-4); Lymphocytes # 2.1 K/mcL (0.6-4.6); Mean Corpuscular HGB Conc 33.6 g/dL (31.6-35.5); Mean Corpuscular Hemoglobin 28.9 pg (28.0-33.3); Mean Corpuscular Volume 85.9 fL (83.0-100.0); Mean Platelet Volume 9.1 fL (9.4-12.4); Monocytes # 1.3 K/mcL (0.0-1.3); Neutrophils # 14.9 K/mcL (1.6-8.9); Platelet Count 414 K/mcL (140-400); Red Cell Distribution Width 14.6 % (11.5-14.5); Segmented Neutrophils % 80.3 %
[2017-03-21 06:22] LABS: BUN/Creatinine Ratio 6 (6-26); Calcium 7.8 mg/dL (8.6-10.8); Carbon Dioxide 32 mEq/L (19-29); Chloride 98 mEq/L (98-109); Glucose 88 mg/dL (70-99); Magnesium 1.6 mg/dL (1.6-2.6); Osmolality,Calculated 270 (280-300); Potassium 3.8 mEq/L (3.5-4.5); Sodium 132 mEq/L (136-145); eGFR For African Americans > 60 (> 60); eGFR For Non-African Americans > 60 (> 60)
[2017-03-21 06:23] LABS: Blood Urea Nitrogen 4 mg/dL (7-20)
[2017-03-21] MEDS: Levalbuterol Neb 0.63 MG/3 ML IH SCH ×3 (07:59→20:15)
[2017-03-21] MEDS: Magnesium Oxide 400 MG TABLET PO SCH ×2 (08:50→21:02)
[2017-03-21] MEDS: *HR* OxyCODONE Immed Rel 5 MG TABLET PO PRN ×2 (09:56→16:03)
[2017-03-21 12:59] LABS: Enterococcus by PCR Not Detected (Not Detect); mecA Methicillin-Resist Gene ***DETECTED*** (Not Detect)
[2017-03-21 13:00] LABS: Acinetobacter baumannii by PCR Not Detected (Not Detect); Candida albicans by PCR Not Detected (Not Detect); Candida glabrata by PCR Not Detected (Not Detect); Candida krusei by PCR Not Detected (Not Detect); Candida parapsilosis by PCR Not Detected (Not Detect); Candida tropicalis by PCR Not Detected (Not Detect); Escherichia coli by PCR Not Detected (Not Detect); Klebsiella oxytoca by PCR Not Detected (Not Detect); Klebsiella pneumoniae by PCR Not Detected (Not Detect); Pseudomonas aeruginosa by PCR Not Detected (Not Detect); Serratia marcescens by PCR Not Detected (Not Detect); Staphylococcus aureus by PCR ***DETECTED*** (Not Detect); Streptococcus agalactiae(B)PCR Not Detected (Not Detect); Streptococcus by PCR Not Detected (Not Detect); Streptococcus pneumoniae PCR Not Detected (Not Detect); Streptococcus pyogenes (A) PCR Not Detected (Not Detect)
--- NOTE | 2017-03-21 13:21 | Internal Med Progress Note ---
<Geoff Cardona - Last Filed: 03/21/17 13:15> Date of Encounter: 03/21/17 Time of Encounter: 11:10 - Assessment and plan (1) Severe sepsis Current Visit: Yes Status: Acute Assessment and plan: Patient met septic criteria on admission. Cardiac revealed a mobile echodensity on the tricuspid valve consistent with vegetation. 03/13: Blood cultures are positive for GPC, PCR shows MRSA. CT of the abdomen and pelvis revealed a right piriformis muscle myositis. 03/13: blood cultures 2/2 positive for MRSA. 03/14: Patient underwent right-sided thoracentesis with removal of 450 ml of exudative pleural fluid. preliminary stain shows no bacteria. 03/15: blood cultures 2/2 positive for MRSA. 03/17: blood cultures 2/2 positive for MRSA. 03/18: blood cultures 2/2 negative so far. 03/20: Sepsis is resolving, still tachycardic, WBC trending down to 18, max temp 100.2. Appreciate ID input. Continue IV vancomycin. (2) Acute respiratory failure with hypoxemia Current Visit: Yes Status: Acute Assessment and plan: 2/2 to pleural effusion and embolic lung cavitations. 03/13: CTA of chest showed no PE, numerous scattered bilateral pulmonary nodules many of which demonstrate central cavitation, moderate right and small left pleural effusions. Echocardiogram revealed LVEF 55%, mobile echodensity attached to the tricuspid valve consistent with a vegetation, severe tricuspid regurgitation. 03/14: Patient underwent right-sided thoracentesis with removal of 450 ml of exudative pleural fluid. Preliminary stain shows no bacteria. 03/18: CT chest showed bilateral pleural effusions, partially located on the right. Airspace disease in the middle lower lingula. Multiple solid and cavitary nodules. -Patient is requiring 2 L of oxygen to keep saturations above 90%. -Continue oxygen supplementation, nebulizations, IV vancomycin. -Diminished breath sounds on the R side. -O2 sat 97% this morning. (3) Bacteremia Current Visit: Yes Status: Acute Assessment and plan: Continue IV Vancomycin. (4) Infective endocarditis Current Visit: Yes Status: Acute Assessment and plan: Continue IV Vancomycin. Qualifiers: Infective endocarditis organism: bacterial Chronicity: acute Qualified Code(s): I33.0 - Acute and subacute infective endocarditis (5) Loculated pleural effusion Current Visit: Yes Status: Acute Assessment and plan: Effusion may need drained. Pulmonology on board (6) Myositis Current Visit: Yes Status: Acute Assessment and plan: Right piriformis muscle myositis. Qualifiers: Myositis type: infective Myositis location: other site Qualified Code(s) : M60.08 - Infective myositis, other site (7) Septic embolism Current Visit: Yes Status: Acute - Subjective Interval history: Patient was seen and examined at bedside this morning. Patient states that she is in a great deal of pain this morning. She says her pain is located in her lower back. She also admits to having difficulty taking a deep breath in, and complains of fatigue. She denies fever, chills, nausea, or vomiting. - Constitutional Vitals: Temp Pulse Resp BP Pulse Ox 98.5 F 101 18 138/88 98 03/21/17 11:27 03/21/17 11:27 03/21/17 11:27 03/21/17 11:27 03/21/17 11:27 General appearance: Present: cooperative, A&O X 3, pleasant, no acute distress, answers questions appropriately - Head Head exam: Present: atraumatic, normocephalic - Neck Neck exam general surgery: Present: supple, trachea midline. Absent: lymphadenopathy - Respiratory Respiratory exam: Present: decreased breath sounds. Absent: accessory muscle use, rales, rhonchi, wheezes Additional comments: Decreased breath sounds on the right. - Cardiovascular Cardiovascular exam: Present: +S1, +S2, systolic murmur. Absent: diastolic murmur, gallop, rubs Additional comments: Systolic murmur present in the tricuspid area. - Extremities Exam Extremities exam: Present: warm, radial pulses palpable and symetrical. Absent : calf tenderness, cyanotic, pedal edema - Skin Skin exam: Present: dry, intact Internal Medicine: Result - Labs CBC & Chem 7: 03/21/17 06:00 03/21/17 06:00 Labs: Short CBC 03/21/17 Range/Units 06:00 WBC 18.6 H (4.3-11.1) K/mcL Hgb 7.8 L (11.5-15.4) g/dL Hct 23.2 L (35.3-44.9) % Plt Count 414 H (140-400) K/mcL Neutrophils # 14.9 H (1.6-8.9) K/mcL BMP 03/21/17 06:00 Sodium 132 L Potassium 3.8 Chloride 98 Carbon Dioxide 32 H BUN 4 L Creatinine 0.64 Glucose 88 Calcium 7.8 L - ABG Interpretation ABG results: PT/INR, D-dimer PT 15.2 Seconds (9.4-12.1) H 03/20/17 04:48 Consult Discharge Plan - Plan Referrals: Afsaneh Worley, LAPPING MACHINE OPERATOR [Advanced Practice Nurse] - (PLEASE TAKE WITH YOU TO YOUR APPOINTMENT A MONTH'S WORTH OF INCOME, THEY DO A SLIDING SCALE OF WHAT YOU WOULD HAVE TO PAY. PLEASE SHOW UP 20 MINS. EARLY FOR YOUR APPOINTMENT TO FILL OUT PAPER WORK. IF YOU NEED TO CANCEL PLEASE CALL [phone] WITH IN 24 HOURS OF YOUR APPOINTMENT TIME.) <Ananth Mac - Last Filed: 03/21/17 18:49> Date of Encounter: 03/21/17 - Assessment and plan (1) Sepsis due to methicillin resistant Staphylococcus aureus (MRSA) Current Visit: Yes Status: Acute (2) Acute respiratory failure with hypoxemia Current Visit: Yes Status: Acute (3) Bacteremia Current Visit: Yes Status: Acute (4) Infective endocarditis Current Visit: Yes Status: Acute Qualifiers: Infective endocarditis organism: bacterial Chronicity: acute Qualified Code(s): I33.0 - Acute and subacute infective endocarditis (5) Myositis Current Visit: Yes Status: Acute Qualifiers: Myositis type: infective Myositis location: other site Qualified Code(s) : M60.08 - Infective myositis, other site (6) Septic embolism Current Visit: Yes Status: Acute (7) Loculated pleural effusion Current Visit: Yes Status: Acute (8) Hepatitis C Current Visit: Yes Status: Chronic Qualifiers: Viral hepatitis chronicity: chronic Hepatic coma status: without hepatic coma Qualified Code(s): B18.2 - Chronic viral hepatitis C (9) IV drug user Current Visit: Yes Status: Chronic (10) Tobacco abuse Current Visit: Yes Status: Acute Assessment and plan: Cessation counselling - Constitutional Vitals: Temp Pulse Resp BP Pulse Ox 99.1 F 104 17 128/88 93 03/21/17 15:18 03/21/17 15:18 03/21/17 15:18 03/21/17 15:18 03/21/17 15:18 Internal Medicine: Result - Labs CBC & Chem 7: 03/21/17 06:00 03/21/17 06:00 Labs: Short CBC 03/21/17 Range/Units 06:00 WBC 18.6 H (4.3-11.1) K/mcL Hgb 7.8 L (11.5-15.4) g/dL Hct 23.2 L (35.3-44.9) % Plt Count 414 H (140-400) K/mcL Neutrophils # 14.9 H (1.6-8.9) K/mcL BMP 03/21/17 06:00 Sodium 132 L Potassium 3.8 Chloride 98 Carbon Dioxide 32 H BUN 4 L Creatinine 0.64 Glucose 88 Calcium 7.8 L - ABG Interpretation ABG results: PT/INR, D-dimer PT 15.2 Seconds (9.4-12.1) H 03/20/17 04:48 - Attending Attestation I examined this patient and my medical decision-making was reviewed with the Resident Physician on 03/21/17. I agree with the documented findings, disposition and treatment plan as described except to the extent set forth below. Ms Silva is currently admitted for MRSA sepsis, endocarditis due to IV drug abuse. She remains high risk due to persistent bacteremia despite abx Ms Silva is complaining of diffuse pain. No fever or chills. Blood cx remain positive. No GI symptoms. Working on d/c planning as well. Exam Alert. Comfortable Mucus membranes dry Heart reg with murmur Lungs diminished Abd soft I/P 1. MRSA endocarditis, bacteremia and septic pulmonary emboli 2. IV drug abuse and withdrawal Further diagnoses and plan as above.
--- NOTE | 2017-03-21 13:28 | Infectious Disease Progress No ---
Date of Encounter: 03/21/17 Time of Encounter: 13:26 - Assessment and Plan (1) Severe sepsis Current Visit: Yes Status: Acute The patient had four SIRS criteria plus hypotension and elevated liver enzymes on admission. Likely secondary to bacteremia and endocarditis. She has been afebrile >24 hours. WBC is 18.4 today. Tachycardia persists. Blood cultures drawn 03/13/17 are positive 2/2 sets for MRSA. Repeat blood cultures drawn 03/15/17 are positive 1/2 sets for MRSA. Additional blood cultures drawn 03/17/17 are positive 2/2 sets. Additional blood cultures drawn 03/18/17 are positive 2/2 sets again. Repeat blood cultures again in the AM. (2) Bacteremia Current Visit: Yes Status: Acute Causative organism MRSA. Source likely IV drug use. Complicated due to septic emboli in the lungs. Blood cultures drawn 03/13/17 are positive 2/2 sets for MRSA. Repeat blood cultures drawn 03/15/17 are positive 1/2 sets for MRSA. Additional blood cultures drawn 03/17/17 are positive 2/2 sets. Additional blood cultures drawn 03/18/17 came back positive this morning 2/2 sets for MRSA again. The patient has two major and two minor Modified Lares's Criteria. TTE completed 03/13/17 showed a mobile echodensity on the tricuspid valve consistent with vegetation. The patient continues to be bacteremic --> source control issue vs. sub- therapeutic antibiotic levels vs. Vanc YULIANA is 2. Continue Vancomycin IV for now. Pharmacy to dose. Goal trough ~15. Most recent vanc trough 20.1. Discussed with Sonja ShultzD. States the last dose was hung three hours late, so this is not a true trough. Patient is likely around 17. Duration of treatment depends on the clinical picture, but likely 6 weeks of IV antibiotics due to the endocarditis. Monitor renal function and for drug toxicity and dose-adjust antibiotics. Hold placement of PICC line until blood cultures are negative. (3) Infective endocarditis Current Visit: Yes Status: Acute Causative organism MRSA. TTE completed 03/13/17 showed mobile echodensity on the tricuspid valve consistent with vegetation. Likely secondary to MRSA bacteremia. Antibiotic recommendations as above. Qualifiers: Infective endocarditis organism: bacterial Chronicity: acute Qualified Code(s): I33.0 - Acute and subacute infective endocarditis (4) Septic embolism Current Visit: Yes Status: Acute CT scan of the chest shows bilateral pulmonary nodules with central cavitation concerning for septic emboli versus atypical infection. Likely secondary to right-sided endocarditis. Pulmonology consulted and following. Feels that given the clinical picture, these nodules are likely septic emboli. Continue antibiotics as above. (5) Abscess Current Visit: Yes Status: Ruled-out MRI of the L-spine showed findings concerning for possible septic left sacroiliac arthritis with abscess. CT scan negative for abscess. (6) Septic arthritis Current Visit: Yes Status: Acute MRI shows septic arthritis of the left sacroiliac joint with abscess. Consult Dr. Bean for further recommendations. Continue antibiotics as above. Qualifiers: Septic arthritis location: vertebra Septic arthritis organism: staphylococcal Qualified Code(s): M00.08 - Staphylococcal arthritis, vertebrae (7) Loculated pleural effusion Current Visit: Yes Status: Acute CT of the chest showed a moderate right and small left pleural effusions that are partially loculated. IR consulted. Status post right thoracentesis 03/14/17. 450ml red fluid drained per IR nurse notes. Appears exudative, but culture is negative. Left thoracentesis cancelled due to the fact that it is very small. Repeat CT scan completed 03/18/17 shows bilateral pleural effusions, partially loculated on the right, but no convincing evidence for empyema. Pulmonology consulted and following. (8) Myositis Current Visit: Yes Status: Acute Location: Right piriformis muscle. CT of the abdomen and pelvis shows right piriformis myositis. Continue antibiotics as above. Qualifiers: Myositis type: infective Myositis location: other site Qualified Code(s) : M60.08 - Infective myositis, other site (9) Elevated transaminase level Current Visit: Yes Status: Resolved Etiology unclear: Chronic Hep C. vs. acute infection vs. other. Resolved. (10) Back pain Current Visit: Yes Status: Acute Likely secondary to right piriformis myositis and left sacroiliac septic arthritis. Patient continues to complain of severe pain, but appears improved on clinical exam. MRI of the L-spine shows septic arthritis of the left sacroiliac joint. CT scan of the pelvis ruled out presence of associated abscess. Pain management per the primary team. Qualifiers: Back pain location: low back pain Chronicity: acute Back pain laterality : midline Sciatica presence: without sciatica Qualified Code(s): M54.5 - Low back pain (11) Hepatitis C Current Visit: Yes Status: Chronic Hep C antibody positive. Refer to GI as an outpatient for management. Qualifiers: Viral hepatitis chronicity: chronic Hepatic coma status: without hepatic coma Qualified Code(s): B18.2 - Chronic viral hepatitis C (12) IV drug user Current Visit: Yes Status: Chronic HIV non-reactive. Known Hep C positive. Hep A and Hep B non-reactive. - Subjective Interval history: Patient seen and examined. No acute events noted overnight. Patient states that overall she feels a little better, but continues to have back pain. She denies fevers, chills, or rigors. She denies any headache or neck pain. She denies any chest pain, shortness of breath, or cough. She denies any diarrhea or constipation and she reports nausea and poor appetite for the past couple of days. She denies abdominal pain. She denies any urinary complaints. She continues to complain of severe lower back pain. She denies any oral thrush or new skin lesions. Infect Dis PN-Objective Data - Labs CBC & Chem 7: 03/21/17 06:00 03/21/17 06:00 Labs: Laboratory Results - last 24 hr 03/18/17 03/18/17 03/21/17 13:23 13:33 06:00 WBC 18.6 H RBC 2.70 L Hgb 7.8 L Hct 23.2 L MCV 85.9 MCH 28.9 MCHC 33.6 RDW 14.6 H Plt Count 414 H MPV 9.1 L Immature Gran % 1.3 Seg Neutrophils % 80.3 Lymphocytes % 11.0 Monocytes % 7.0 Eosinophils % 0.1 Basophils % 0.3 Neutrophils # 14.9 H Lymphocytes # 2.1 Monocytes # 1.3 Eosinophils # 0.0 Basophils # 0.1 Sodium Potassium Chloride Carbon Dioxide BUN Creatinine Est GFR ( Amer) Est GFR (Non-Af Amer) BUN/Creatinine Ratio Glucose Calculated Osmolality Calcium Magnesium A. baumannii (PCR) Not Detected Not Detected Claribel albicans (PCR) Not Detected Not Detected C. glabrata (PCR) Not Detected Not Detected C. krusei (PCR) Not Detected Not Detected C. parapsilosis (PCR) Not Detected Not Detected C. tropicalis (PCR) Not Detected Not Detected Enterobacteriac sp PCR Not Detected Not Detected E. cloacae complex PCR Not Detected Not Detected Enterococcus sp PCR Not Detected Not Detected E. coli (PCR) Not Detected Not Detected H. influenzae (PCR) Not Detected Not Detected Klebsiella oxytoca PCR Not Detected Not Detected Klebsiella pneumoniae Not Detected Not Detected List. monocytogenes PCR Not Detected Not Detected N. meningitidis (PCR) Not Detected Not Detected Proteus species (PCR) Not Detected Not Detected Serratia marcescens PCR Not Detected Not Detected Staphylococcus sp PCR Not Detected DETECTED A Staph aureus (PCR) DETECTED A DETECTED A mecA-Methicil Res Gene DETECTED A DETECTED A Streptococcus sp PCR Not Detected Not Detected Group A Strep DNA Not Detected Not Detected Group B Strep (PCR) Not Detected Not Detected Strep pneumoniae (PCR) Not Detected Not Detected P. aeruginosa (PCR) Not Detected Not Detected Angi/B-Vanco Res Genes Not Detected N/A KPC (blaKPC) Detect PCR Not Detected N/A 03/21/17 06:00 WBC RBC Hgb Hct MCV MCH MCHC RDW Plt Count MPV Immature Gran % Seg Neutrophils % Lymphocytes % Monocytes % Eosinophils % Basophils % Neutrophils # Lymphocytes # Monocytes # Eosinophils # Basophils # Sodium 132 L Potassium 3.8 Chloride 98 Carbon Dioxide 32 H BUN 4 L Creatinine 0.64 Est GFR ( Amer) > 60 Est GFR (Non-Af Amer) > 60 BUN/Creatinine Ratio 6 Glucose 88 Calculated Osmolality 270 L Calcium 7.8 L Magnesium 1.6 A. baumannii (PCR) Claribel albicans (PCR) C. glabrata (PCR) C. krusei (PCR) C. parapsilosis (PCR) C. tropicalis (PCR) Enterobacteriac sp PCR E. cloacae complex PCR Enterococcus sp PCR E. coli (PCR) H. influenzae (PCR) Klebsiella oxytoca PCR Klebsiella pneumoniae List. monocytogenes PCR N. meningitidis (PCR) Proteus species (PCR) Serratia marcescens PCR Staphylococcus sp PCR Staph aureus (PCR) mecA-Methicil Res Gene Streptococcus sp PCR Group A Strep DNA Group B Strep (PCR) Strep pneumoniae (PCR) P. aeruginosa (PCR) Angi/B-Vanco Res Genes KPC (blaKPC) Detect PCR Cultures: Cultures 03/18/17 13:33 Blood Culture - Preliminary Peripheral Venipuncture Gram Positive Cocci 03/18/17 13:23 Blood Culture - Preliminary Peripheral Venipuncture Gram Positive Cocci 03/15/17 05:47 Blood Culture - Final Peripheral Venipuncture No growth. 03/17/17 03:28 Blood Culture - Final Peripheral Venipuncture Methicillin Resistant S.aureus 03/17/17 03:25 Blood Culture - Final Peripheral Venipuncture Methicillin Resistant S.aureus 03/15/17 05:47 Blood Culture - Final Peripheral Venipuncture Methicillin Resistant S.aureus 03/14/17 13:30 Body Fluid Culture - Final Pleural Fluid 03/14/17 13:30 Acid Fast Stain - Final Pleural Fluid Serology 03/18/17 03/18/17 03/18/17 Range/Units 22:26 13:33 13:23 Urine Test Negative (Negative) Pleural Fluid Volume mL Pleural Appearance (Clear) Pleural RBC (0.000 - 0.002) M/mcL Pleural Tot Nuc Cell (0-1000) TNC/mcL Pleural Neutrophils % Pleural Band Neuts Pleural Eosinophils % Pleural Basophils Pleural Lymphocytes % % Pleural Monocytes % % Pleural Other Cells % Pleural Total Protein (No Ref Range) g/dL Pleural LDH (No Ref Range) Units/L A. baumannii (PCR) Not Detected Not Detected (Not Detect) Claribel albicans (PCR) Not Detected Not Detected (Not Detect) C. glabrata (PCR) Not Detected Not Detected (Not Detect) C. krusei (PCR) Not Detected Not Detected (Not Detect) C. parapsilosis (PCR) Not Detected Not Detected (Not Detect) C. tropicalis (PCR) Not Detected Not Detected (Not Detect) Enterobacteriac sp PCR Not Detected Not Detected (Not Detect) E. cloacae complex PCR Not Detected Not Detected (Not Detect) Enterococcus sp PCR Not Detected Not Detected (Not Detect) E. coli (PCR) Not Detected Not Detected (Not Detect) H. influenzae (PCR) Not Detected Not Detected (Not Detect) Hepatitis A IgM Ab (Nonreactive) Hep Bs Antigen (Nonreactive) Hep B Core IgM Ab (Nonreactive) Hepatitis C Ab Screen (Nonreactive) HIV Ag/Ab Combo Qual (Nonreactive) Klebsiella oxytoca PCR Not Detected Not Detected (Not Detect) Klebsiella pneumoniae Not Detected Not Detected (Not Detect) List. monocytogenes PCR Not Detected Not Detected (Not Detect) N. meningitidis (PCR) Not Detected Not Detected (Not Detect) Proteus species (PCR) Not Detected Not Detected (Not Detect) Serratia marcescens PCR Not Detected Not Detected (Not Detect) Staphylococcus sp PCR DETECTED A Not Detected (Not Detect) Staph aureus (PCR) DETECTED A DETECTED A (Not Detect) mecA-Methicil Res Gene DETECTED A DETECTED A (Not Detect) Streptococcus sp PCR Not Detected Not Detected (Not Detect) Group A Strep DNA Not Detected Not Detected (Not Detect) Group B Strep (PCR) Not Detected Not Detected (Not Detect) Strep pneumoniae (PCR) Not Detected Not Detected (Not Detect) P. aeruginosa (PCR) Not Detected Not Detected (Not Detect) Angi/B-Vanco Res Genes N/A Not Detected (Not Detect) KPC (blaKPC) Detect PCR N/A Not Detected (Not Detect) 03/17/17 03/15/17 03/14/17 Range/Units 03:25 05:47 13:30 Urine Test (Negative) Pleural Fluid Volume 500.0 mL Pleural Appearance Bloody A (Clear) Pleural RBC 0.091 H (0.000 - 0.002) M/mcL Pleural Tot Nuc Cell 6363 H (0-1000) TNC/mcL Pleural Neutrophils 80.0 % Pleural Band Neuts Test Not Performed Pleural Eosinophils 2.0 % Pleural Basophils Test Not Performed Pleural Lymphocytes % 15.0 % Pleural Monocytes % 3.0 % Pleural Other Cells % Test Not Performed Pleural Total Protein 3.3 (No Ref Range) g/dL Pleural LDH 1016 (No Ref Range) Units/L A. baumannii (PCR) Not Detected Not Detected (Not Detect) Claribel albicans (PCR) Not Detected Not Detected (Not Detect) C. glabrata (PCR) Not Detected Not Detected (Not Detect) C. krusei (PCR) Not Detected Not Detected (Not Detect) C. parapsilosis (PCR) Not Detected Not Detected (Not Detect) C. tropicalis (PCR) Not Detected Not Detected (Not Detect) Enterobacteriac sp PCR Not Detected Not Detected (Not Detect) E. cloacae complex PCR Not Detected Not Detected (Not Detect) Enterococcus sp PCR Not Detected Not Detected (Not Detect) E. coli (PCR) Not Detected Not Detected (Not Detect) H. influenzae (PCR) Not Detected Not Detected (Not Detect) Hepatitis A IgM Ab (Nonreactive) Hep Bs Antigen (Nonreactive) Hep B Core IgM Ab (Nonreactive) Hepatitis C Ab Screen (Nonreactive) HIV Ag/Ab Combo Qual (Nonreactive) Klebsiella oxytoca PCR Not Detected Not Detected (Not Detect) Klebsiella pneumoniae Not Detected Not Detected (Not Detect) List. monocytogenes PCR Not Detected Not Detected (Not Detect) N. meningitidis (PCR) Not Detected Not Detected (Not Detect) Proteus species (PCR) Not Detected Not Detected (Not Detect) Serratia marcescens PCR Not Detected Not Detected (Not Detect) Staphylococcus sp PCR DETECTED A DETECTED A (Not Detect) Staph aureus (PCR) DETECTED A DETECTED A (Not Detect) mecA-Methicil Res Gene DETECTED A DETECTED A (Not Detect) Streptococcus sp PCR Not Detected Not Detected (Not Detect) Group A Strep DNA Not Detected Not Detected (Not Detect) Group B Strep (PCR) Not Detected Not Detected (Not Detect) Strep pneumoniae (PCR) Not Detected Not Detected (Not Detect) P. aeruginosa (PCR) Not Detected Not Detected (Not Detect) Angi/B-Vanco Res Genes Not Detected N/A (Not Detect) KPC (blaKPC) Detect PCR Not Detected N/A (Not Detect) 03/14/17 03/14/17 Range/Units 05:23 05:23 Urine Test (Negative) Pleural Fluid Volume mL Pleural Appearance (Clear) Pleural RBC (0.000 - 0.002) M/mcL Pleural Tot Nuc Cell (0-1000) TNC/mcL Pleural Neutrophils % Pleural Band Neuts Pleural Eosinophils % Pleural Basophils Pleural Lymphocytes % % Pleural Monocytes % % Pleural Other Cells % Pleural Total Protein (No Ref Range) g/dL Pleural LDH (No Ref Range) Units/L A. baumannii (PCR) (Not Detect) Claribel albicans (PCR) (Not Detect) C. glabrata (PCR) (Not Detect) C. krusei (PCR) (Not Detect) C. parapsilosis (PCR) (Not Detect) C. tropicalis (PCR) (Not Detect) Enterobacteriac sp PCR (Not Detect) E. cloacae complex PCR (Not Detect) Enterococcus sp PCR (Not Detect) E. coli (PCR) (Not Detect) H. influenzae (PCR) (Not Detect) Hepatitis A IgM Ab Nonreactive (Nonreactive) Hep Bs Antigen Nonreactive (Nonreactive) Hep B Core IgM Ab Nonreactive (Nonreactive) Hepatitis C Ab Screen Reactive H (Nonreactive) HIV Ag/Ab Combo Qual Nonreactive (Nonreactive) Klebsiella oxytoca PCR (Not Detect) Klebsiella pneumoniae (Not Detect) List. monocytogenes PCR (Not Detect) N. meningitidis (PCR) (Not Detect) Proteus species (PCR) (Not Detect) Serratia marcescens PCR (Not Detect) Staphylococcus sp PCR (Not Detect) Staph aureus (PCR) (Not Detect) mecA-Methicil Res Gene (Not Detect) Streptococcus sp PCR (Not Detect) Group A Strep DNA (Not Detect) Group B Strep (PCR) (Not Detect) Strep pneumoniae (PCR) (Not Detect) P. aeruginosa (PCR) (Not Detect) Angi/B-Vanco Res Genes (Not Detect) KPC (blaKPC) Detect PCR (Not Detect) Exam - Constitutional Vitals: Temp Pulse Resp BP Pulse Ox 98.5 F 101 18 138/88 98 03/21/17 11:27 03/21/17 11:27 03/21/17 11:27 03/21/17 11:27 03/21/17 11:27 General appearance: average body habitus, cooperative, no acute distress - Head Head exam: Present: atraumatic, normal inspection, normocephalic - Eye Eye exam: Present: EOMI, normal appearance, PERRL Pupils: Present: normal accommodation Additional comments: No subconjunctival hemorrhage noted. - ENT ENT exam: Present: mucous membranes moist - Neck Neck exam: Present: normal inspection - Respiratory Respiratory exam: Present: CTAB. Absent: rales, respiratory distress, rhonchi, wheezes - Cardiovascular Cardiovascular exam: Present: RRR, +S1, +S2 - GI/Abdominal GI/Abdominal exam: Present: normal bowel sounds, soft. Absent: distended, tenderness - Extremities Exam Extremities exam: Present: normal inspection, pedal edema (1+ BLE). Absent: joint swelling, tenderness Additional comments: No endocarditis stigmata noted. - Back Exam Back exam: Present: normal inspection, paraspinal tenderness (bilateral lower back). Absent: vertebral tenderness - Neurological Exam Neurological exam: Present: alert, oriented X3, no focal deficits - Psychiatric Psychiatric exam: Present: normal affect, normal mood - Skin Skin exam: Present: dry, intact, normal color, warm Consult Discharge Plan - Plan Referrals: Afsaneh Worley, [employer] [Advanced Practice Nurse] - (PLEASE TAKE WITH YOU TO YOUR APPOINTMENT A MONTH'S WORTH OF INCOME, THEY DO A SLIDING SCALE OF WHAT YOU WOULD HAVE TO PAY. PLEASE SHOW UP 20 MINS. EARLY FOR YOUR APPOINTMENT TO FILL OUT PAPER WORK. IF YOU NEED TO CANCEL PLEASE CALL [phone] WITH IN 24 HOURS OF YOUR APPOINTMENT TIME.) - Attending Attestation I examined this patient and my medical decision-making was reviewed with the Resident Physician. I agree with the documented findings, disposition and treatment plan as described except to the extent set forth below.
[2017-03-21] MEDS: Acetaminophen 325 MG TABLET PO PRN (21:03)
[2017-03-22 00:20] LABS: QuantiFERON Mitogen minus NIL 0.04 IU/mL
[2017-03-22] MEDS: *HR* OxyCODONE Immed Rel 5 MG TABLET PO PRN ×2 (04:55→14:10)
[2017-03-22] MEDS: *HR* Enoxaparin 40 MG/0.4 ML SYRINGE SQ SCH (05:34)
[2017-03-22 06:07] LABS: Basophils # 0.1 K/mcL (0.0-0.2); Basophils % 0.4 %; Eosinophils # 0.1 K/mcL (0.0-0.6); Eosinophils % 0.7 %; Hemoglobin 7.8 g/dL (11.5-15.4); Immature Granulocytes % 1.3 % (0-4); Lymphocytes # 1.8 K/mcL (0.6-4.6); Mean Corpuscular HGB Conc 32.5 g/dL (31.6-35.5); Mean Corpuscular Hemoglobin 27.9 pg (28.0-33.3); Mean Corpuscular Volume 85.7 fL (83.0-100.0); Mean Platelet Volume 9.7 fL (9.4-12.4); Monocytes # 1.1 K/mcL (0.0-1.3); Neutrophils # 14.6 K/mcL (1.6-8.9); Platelet Count 354 K/mcL (140-400); Red Cell Distribution Width 14.4 % (11.5-14.5); Segmented Neutrophils % 81.6 %
[2017-03-22 06:35] LABS: BUN/Creatinine Ratio 6 (6-26); Calcium 7.7 mg/dL (8.6-10.8); Carbon Dioxide 27 mEq/L (19-29); Chloride 102 mEq/L (98-109); Glucose 92 mg/dL (70-99); Magnesium 1.5 mg/dL (1.6-2.6); Osmolality,Calculated 277 (280-300); Potassium 3.9 mEq/L (3.5-4.5); Sodium 135 mEq/L (136-145); eGFR For African Americans > 60 (> 60); eGFR For Non-African Americans > 60 (> 60)
[2017-03-22 06:39] LABS: Blood Urea Nitrogen 4 mg/dL (7-20)
[2017-03-22 06:44] LABS: Vancomycin,Trough 18.2 mcg/mL (10-20)
[2017-03-22] MEDS: Vancomycin 1,250 MG in D5% in Water 250 ML IVPB SCH ×2 (07:01→18:54)
[2017-03-22] MEDS: Acetaminophen 325 MG TABLET PO PRN ×2 (08:10→20:25)
[2017-03-22] MEDS: Magnesium Oxide 400 MG TABLET PO SCH ×2 (08:11→20:14)
[2017-03-22] MEDS: Levalbuterol Neb 0.63 MG/3 ML IH SCH (08:15)
[2017-03-22] MEDS: Ketorolac 15 MG/ML VIAL IVP PRN ×2 (08:15→20:13)
--- NOTE | 2017-03-22 12:54 | Internal Med Progress Note ---
<Geoff Cardona - Last Filed: 03/22/17 12:52> Date of Encounter: 03/22/17 Time of Encounter: 11:00 - Assessment and plan (1) Severe sepsis Current Visit: Yes Status: Acute Assessment and plan: Patient met septic criteria on admission. Cardiac revealed a mobile echodensity on the tricuspid valve consistent with vegetation. 03/13: Blood cultures are positive for GPC, PCR shows MRSA. CT of the abdomen and pelvis revealed a right piriformis muscle myositis. 03/13: blood cultures 2/2 positive for MRSA. 03/14: Patient underwent right-sided thoracentesis with removal of 450 ml of exudative pleural fluid. preliminary stain shows no bacteria. 03/15: blood cultures 2/2 positive for MRSA. 03/17: blood cultures 2/2 positive for MRSA. 03/18: blood cultures 2/2 negative so far. 03/20: Sepsis is resolving, still tachycardic, WBC trending down, max temp 100.2. Continue IV vancomycin. Patient's white count this morning was 17.9. (2) Acute respiratory failure with hypoxemia Current Visit: Yes Status: Acute Assessment and plan: 2/2 to pleural effusion and embolic lung cavitations. 03/13: -CTA of chest showed no PE, numerous scattered bilateral pulmonary nodules many of which demonstrate central cavitation, moderate right and small left pleural effusions. -Echocardiogram revealed LVEF 55%, mobile echodensity attached to the tricuspid valve consistent with a vegetation, severe tricuspid regurgitation. 03/14: -Patient underwent right-sided thoracentesis with removal of 450 ml of exudative pleural fluid. -Preliminary stain shows no bacteria. 03/18: -CT chest showed bilateral pleural effusions, partially located on the right. -Airspace disease in the middle lower lingula. -Multiple solid and cavitary nodules. -Patient is requiring 2 L of oxygen to keep saturations above 90%. -Continue oxygen supplementation, nebulizations, IV vancomycin. (3) Bacteremia Current Visit: Yes Status: Acute Assessment and plan: Continue IV Vancomycin. (4) Infective endocarditis Current Visit: Yes Status: Acute Assessment and plan: Continue IV Vancomycin. Qualifiers: Infective endocarditis organism: bacterial Chronicity: acute Qualified Code(s): I33.0 - Acute and subacute infective endocarditis (5) Loculated pleural effusion Current Visit: Yes Status: Acute Assessment and plan: Effusion may need drained. Patient denied having any shortness of breath this morning. On 03/21/2017, patient had diminished breath sounds on the right side. Today, pulmonary exam is only significant for expiratory wheezes. Pulmonology on board. (6) Myositis Current Visit: Yes Status: Acute Assessment and plan: Right piriformis muscle myositis. Qualifiers: Myositis type: infective Myositis location: other site Qualified Code(s) : M60.08 - Infective myositis, other site (7) Septic embolism Current Visit: Yes Status: Acute Assessment and plan: Plan as above. - Subjective Interval history: Patient was seen and examined at bedside this morning. Patient states that she is still having pain in her lower back. She also states that it has been difficult for her to move around, and would like to be able to get up and walk more. She also admits that she did not sleep well last night. Patient states that her breathing has improved since yesterday, and she no longer feels short of breath. Patient currently denies having any fever, chills, nausea, vomiting , or chest pain. - Constitutional Vitals: Temp Pulse Resp BP Pulse Ox 100.6 F H 103 18 147/81 94 03/22/17 07:46 03/22/17 07:46 03/22/17 07:46 03/22/17 07:46 03/22/17 08:08 General appearance: Present: cooperative, A&O X 3, pleasant, no acute distress, answers questions appropriately - Head Head exam: Present: atraumatic, normocephalic - Neck Neck exam general surgery: Present: supple, trachea midline. Absent: lymphadenopathy - Respiratory Respiratory exam: Present: wheezes. Absent: accessory muscle use, CTAB, rales, rhonchi - Cardiovascular Cardiovascular exam: Present: +S1, +S2, systolic murmur. Absent: diastolic murmur, gallop, RRR, rubs Additional comments: Systolic murmur is appreciated in the tricuspid area. - GI/Abdominal GI/Abdominal exam: Present: normal bowel sounds, soft, no peritoneal signs. Absent: distended - Skin Skin exam: Present: dry, intact Internal Medicine: Result - Labs CBC & Chem 7: 03/22/17 05:50 03/22/17 05:50 Labs: Short CBC 03/22/17 Range/Units 05:50 WBC 17.9 H (4.3-11.1) K/mcL Hgb 7.8 L (11.5-15.4) g/dL Hct 24.0 L (35.3-44.9) % Plt Count 354 (140-400) K/mcL Neutrophils # 14.6 H (1.6-8.9) K/mcL BMP 03/22/17 05:50 Sodium 135 L Potassium 3.9 Chloride 102 Carbon Dioxide 27 BUN 4 L Creatinine 0.62 Glucose 92 Calcium 7.7 L - ABG Interpretation ABG results: PT/INR, D-dimer PT 15.2 Seconds (9.4-12.1) H 03/20/17 04:48 Consult Discharge Plan - Plan Referrals: Afsaneh Worley, THEATRE DIRECTOR [Advanced Practice Nurse] - (PLEASE TAKE WITH YOU TO YOUR APPOINTMENT A MONTH'S WORTH OF INCOME, THEY DO A SLIDING SCALE OF WHAT YOU WOULD HAVE TO PAY. PLEASE SHOW UP 20 MINS. EARLY FOR YOUR APPOINTMENT TO FILL OUT PAPER WORK. IF YOU NEED TO CANCEL PLEASE CALL [phone] WITH IN 24 HOURS OF YOUR APPOINTMENT TIME.) <Ananth Mac - Last Filed: 03/22/17 19:22> Date of Encounter: 03/22/17 - Assessment and plan (1) Sepsis due to methicillin resistant Staphylococcus aureus (MRSA) Current Visit: Yes Status: Acute (2) Acute respiratory failure with hypoxemia Current Visit: Yes Status: Acute (3) Bacteremia Current Visit: Yes Status: Acute (4) Infective endocarditis Current Visit: Yes Status: Acute Qualifiers: Infective endocarditis organism: bacterial Chronicity: acute Qualified Code(s): I33.0 - Acute and subacute infective endocarditis (5) Myositis Current Visit: Yes Status: Acute Qualifiers: Myositis type: infective Myositis location: other site Qualified Code(s) : M60.08 - Infective myositis, other site (6) Septic embolism Current Visit: Yes Status: Acute (7) Loculated pleural effusion Current Visit: Yes Status: Acute (8) Hepatitis C Current Visit: Yes Status: Chronic Qualifiers: Viral hepatitis chronicity: chronic Hepatic coma status: without hepatic coma Qualified Code(s): B18.2 - Chronic viral hepatitis C (9) IV drug user Current Visit: Yes Status: Chronic (10) Tobacco abuse Current Visit: Yes Status: Acute - Constitutional Vitals: Temp Pulse Resp BP Pulse Ox 98.2 F 89 17 138/89 95 03/22/17 16:16 03/22/17 16:16 03/22/17 16:16 03/22/17 16:16 03/22/17 16:16 Internal Medicine: Result - Labs CBC & Chem 7: 03/22/17 05:50 03/22/17 05:50 Labs: Short CBC 03/22/17 Range/Units 05:50 WBC 17.9 H (4.3-11.1) K/mcL Hgb 7.8 L (11.5-15.4) g/dL Hct 24.0 L (35.3-44.9) % Plt Count 354 (140-400) K/mcL Neutrophils # 14.6 H (1.6-8.9) K/mcL BMP 03/22/17 05:50 Sodium 135 L Potassium 3.9 Chloride 102 Carbon Dioxide 27 BUN 4 L Creatinine 0.62 Glucose 92 Calcium 7.7 L - ABG Interpretation ABG results: PT/INR, D-dimer PT 15.2 Seconds (9.4-12.1) H 03/20/17 04:48 - Attending Attestation I examined this patient and my medical decision-making was reviewed with the Resident Physician on 03/22/17. I agree with the documented findings, disposition and treatment plan as described except to the extent set forth below. Ms. Silva is currently admitted for acute MRSA endocarditis and multiple other infectious sites. She remains high risk due to potential for worsening infectious, pulmonary and cardiac status. Ms. Silva continues to have pain. Breathing feels a little better. No high fevers. No GI issues. Still wants to leave but has been explained risks. Exam Alert. Mod distress Mucus membranes dry Heart reg with murmur Lungs with rhonchi Abd soft No edema I/P 1. MRSA endocarditis 2. Persistent bacteremia 3. IV drug abuse Further diagnoses and plan as above.
[2017-03-22] MEDS ORDERED: Magnesium Sulfate 1 GM in D5% in Water 100 ML IVPB ONE (13:20)
[2017-03-22] MEDS ORDERED: Levalbuterol Neb 0.63 MG/3 ML IH PRN (13:23)
--- NOTE | 2017-03-22 14:07 | Infectious Disease Progress No ---
Date of Encounter: 03/22/17 Time of Encounter: 13:47 - Assessment and Plan (1) Severe sepsis Current Visit: Yes Status: Acute The patient had four SIRS criteria plus hypotension and elevated liver enzymes on admission. Likely secondary to bacteremia and endocarditis. She has been afebrile >24 hours. WBC is 18.4 today. Tachycardia persists. Blood cultures drawn 03/13/17 are positive 2/2 sets for MRSA. Repeat blood cultures drawn 03/15/17 are positive 1/2 sets for MRSA. Additional blood cultures drawn 03/17/17 are positive 2/2 sets. Additional blood cultures drawn 03/18/17 are positive 2/2 sets again. Repeat blood cultures drawn 03/21/17 are pending x 2 sets. (2) Bacteremia Current Visit: Yes Status: Acute Causative organism MRSA. Source likely IV drug use. Complicated due to septic emboli in the lungs. Blood cultures drawn 03/13/17 are positive 2/2 sets for MRSA. Repeat blood cultures drawn 03/15/17 are positive 1/2 sets for MRSA. Additional blood cultures drawn 03/17/17 are positive 2/2 sets. Additional blood cultures drawn 03/18/17 came back positive this morning 2/2 sets for MRSA again. Additional blood cultures drawn 03/21/17 are pending x 2 sets. The patient has two major and two minor Modified Lares's Criteria. TTE completed 03/13/17 showed a mobile echodensity on the tricuspid valve consistent with vegetation. The patient continues to be bacteremic --> source control issue vs. sub- therapeutic antibiotic levels vs. Vanc YULIANA is 2. Continue Vancomycin IV for now. Pharmacy to dose. Goal trough ~15. Most recent vanc trough 18.2. Duration of treatment depends on the clinical picture, but likely 6 weeks of IV antibiotics due to the endocarditis. Monitor renal function and for drug toxicity and dose-adjust antibiotics. Hold placement of PICC line until blood cultures are negative. (3) Infective endocarditis Current Visit: Yes Status: Acute Causative organism MRSA. TTE completed 03/13/17 showed mobile echodensity on the tricuspid valve consistent with vegetation. Likely secondary to MRSA bacteremia. Antibiotic recommendations as above. Qualifiers: Infective endocarditis organism: bacterial Chronicity: acute Qualified Code(s): I33.0 - Acute and subacute infective endocarditis (4) Septic embolism Current Visit: Yes Status: Acute CT scan of the chest shows bilateral pulmonary nodules with central cavitation concerning for septic emboli versus atypical infection. Likely secondary to right-sided endocarditis. Pulmonology consulted and following. Feels that given the clinical picture, these nodules are likely septic emboli. Continue antibiotics as above. (5) Abscess Current Visit: Yes Status: Ruled-out MRI of the L-spine showed findings concerning for possible septic left sacroiliac arthritis with abscess. CT scan negative for abscess. (6) Septic arthritis Current Visit: Yes Status: Acute MRI shows septic arthritis of the left sacroiliac joint with abscess. Consult Dr. Bean for further recommendations. Discussed with the primary team today. Continue antibiotics as above. Qualifiers: Septic arthritis location: vertebra Septic arthritis organism: staphylococcal Qualified Code(s): M00.08 - Staphylococcal arthritis, vertebrae (7) Loculated pleural effusion Current Visit: Yes Status: Acute CT of the chest showed a moderate right and small left pleural effusions that are partially loculated. IR consulted. Status post right thoracentesis 03/14/17. 450ml red fluid drained per IR nurse notes. Appears exudative, but culture is negative. Left thoracentesis cancelled due to the fact that it is very small. Repeat CT scan completed 03/18/17 shows bilateral pleural effusions, partially loculated on the right, but no convincing evidence for empyema. Given the persistent bacteremia, may need to consider re-imaging to evaluate again. Pulmonology consulted and following. (8) Myositis Current Visit: Yes Status: Acute Location: Right piriformis muscle. CT of the abdomen and pelvis shows right piriformis myositis. Continue antibiotics as above. Qualifiers: Myositis type: infective Myositis location: other site Qualified Code(s) : M60.08 - Infective myositis, other site (9) Elevated transaminase level Current Visit: Yes Status: Resolved Etiology unclear: Chronic Hep C. vs. acute infection vs. other. Resolved. (10) Back pain Current Visit: Yes Status: Acute Likely secondary to right piriformis myositis and left sacroiliac septic arthritis. Patient continues to complain of severe pain, but appears improved on clinical exam. MRI of the L-spine shows septic arthritis of the left sacroiliac joint. CT scan of the pelvis ruled out presence of associated abscess. Pain management per the primary team. Qualifiers: Back pain location: low back pain Chronicity: acute Back pain laterality : midline Sciatica presence: without sciatica Qualified Code(s): M54.5 - Low back pain (11) Hepatitis C Current Visit: Yes Status: Chronic Hep C antibody positive. Refer to GI as an outpatient for management. Qualifiers: Viral hepatitis chronicity: chronic Hepatic coma status: without hepatic coma Qualified Code(s): B18.2 - Chronic viral hepatitis C (12) IV drug user Current Visit: Yes Status: Chronic HIV non-reactive. Known Hep C positive. Hep A and Hep B non-reactive. (13) Anemia Current Visit: Yes Status: Acute Etiology unclear. Hgb improved after 2 units PRBCs. Stable. No acute bleeding noted on exam. Further evaluation and management per the primary team. Qualifiers: Anemia type: unspecified type Qualified Code(s): D64.9 - Anemia, unspecified - Subjective Interval history: Patient seen and examined. No acute events noted overnight. Patient states she still feels poorly and continues to have back pain. She denies fevers or rigors , but reports chills. She denies any headache or neck pain. She denies any chest pain, shortness of breath, or cough. She denies any diarrhea or constipation and she reports nausea and poor appetite for the past couple of days. She denies abdominal pain. She denies any urinary complaints. She continues to complain of severe lower back pain. She denies any oral thrush or new skin lesions. Infect Dis PN-Objective Data - Labs CBC & Chem 7: 03/22/17 05:50 03/22/17 05:50 Labs: Laboratory Results - last 24 hr 03/22/17 03/22/17 05:50 05:50 WBC 17.9 H RBC 2.80 L Hgb 7.8 L Hct 24.0 L MCV 85.7 MCH 27.9 L MCHC 32.5 RDW 14.4 Plt Count 354 MPV 9.7 Immature Gran % 1.3 Seg Neutrophils % 81.6 Lymphocytes % 10.0 Monocytes % 6.0 Eosinophils % 0.7 Basophils % 0.4 Neutrophils # 14.6 H Lymphocytes # 1.8 Monocytes # 1.1 Eosinophils # 0.1 Basophils # 0.1 Sodium 135 L Potassium 3.9 Chloride 102 Carbon Dioxide 27 BUN 4 L Creatinine 0.62 Est GFR ( Amer) > 60 Est GFR (Non-Af Amer) > 60 BUN/Creatinine Ratio 6 Glucose 92 Calculated Osmolality 277 L Calcium 7.7 L Magnesium 1.5 L Vancomycin Trough 18.2 Cultures: Cultures 03/18/17 13:23 Blood Culture - Final Peripheral Venipuncture Methicillin Resistant S.aureus 03/18/17 13:33 Blood Culture - Preliminary Peripheral Venipuncture Gram Positive Cocci 03/15/17 05:47 Blood Culture - Final Peripheral Venipuncture No growth. 03/17/17 03:28 Blood Culture - Final Peripheral Venipuncture Methicillin Resistant S.aureus 03/17/17 03:25 Blood Culture - Final Peripheral Venipuncture Methicillin Resistant S.aureus 03/15/17 05:47 Blood Culture - Final Peripheral Venipuncture Methicillin Resistant S.aureus 03/14/17 13:30 Body Fluid Culture - Final Pleural Fluid 03/14/17 13:30 Acid Fast Stain - Final Pleural Fluid Serology 03/18/17 03/18/17 03/18/17 Range/Units 22:26 13:33 13:23 Urine Test Negative (Negative) Pleural Fluid Volume mL Pleural Appearance (Clear) Pleural RBC (0.000 - 0.002) M/mcL Pleural Tot Nuc Cell (0-1000) TNC/mcL Pleural Neutrophils % Pleural Band Neuts Pleural Eosinophils % Pleural Basophils Pleural Lymphocytes % % Pleural Monocytes % % Pleural Other Cells % Pleural Total Protein (No Ref Range) g/dL Pleural LDH (No Ref Range) Units/L A. baumannii (PCR) Not Detected Not Detected (Not Detect) Claribel albicans (PCR) Not Detected Not Detected (Not Detect) C. glabrata (PCR) Not Detected Not Detected (Not Detect) C. krusei (PCR) Not Detected Not Detected (Not Detect) C. parapsilosis (PCR) Not Detected Not Detected (Not Detect) C. tropicalis (PCR) Not Detected Not Detected (Not Detect) Enterobacteriac sp PCR Not Detected Not Detected (Not Detect) E. cloacae complex PCR Not Detected Not Detected (Not Detect) Enterococcus sp PCR Not Detected Not Detected (Not Detect) E. coli (PCR) Not Detected Not Detected (Not Detect) H. influenzae (PCR) Not Detected Not Detected (Not Detect) Hepatitis A IgM Ab (Nonreactive) Hep Bs Antigen (Nonreactive) Hep B Core IgM Ab (Nonreactive) Hepatitis C Ab Screen (Nonreactive) HIV Ag/Ab Combo Qual (Nonreactive) Klebsiella oxytoca PCR Not Detected Not Detected (Not Detect) Klebsiella pneumoniae Not Detected Not Detected (Not Detect) List. monocytogenes PCR Not Detected Not Detected (Not Detect) N. meningitidis (PCR) Not Detected Not Detected (Not Detect) Proteus species (PCR) Not Detected Not Detected (Not Detect) Serratia marcescens PCR Not Detected Not Detected (Not Detect) Staphylococcus sp PCR DETECTED A Not Detected (Not Detect) Staph aureus (PCR) DETECTED A DETECTED A (Not Detect) mecA-Methicil Res Gene DETECTED A DETECTED A (Not Detect) Streptococcus sp PCR Not Detected Not Detected (Not Detect) Group A Strep DNA Not Detected Not Detected (Not Detect) Group B Strep (PCR) Not Detected Not Detected (Not Detect) Strep pneumoniae (PCR) Not Detected Not Detected (Not Detect) P. aeruginosa (PCR) Not Detected Not Detected (Not Detect) Angi/B-Vanco Res Genes N/A Not Detected (Not Detect) KPC (blaKPC) Detect PCR N/A Not Detected (Not Detect) 03/17/17 03/15/17 03/14/17 Range/Units 03:25 05:47 13:30 Urine Test (Negative) Pleural Fluid Volume 500.0 mL Pleural Appearance Bloody A (Clear) Pleural RBC 0.091 H (0.000 - 0.002) M/mcL Pleural Tot Nuc Cell 6363 H (0-1000) TNC/mcL Pleural Neutrophils 80.0 % Pleural Band Neuts Test Not Performed Pleural Eosinophils 2.0 % Pleural Basophils Test Not Performed Pleural Lymphocytes % 15.0 % Pleural Monocytes % 3.0 % Pleural Other Cells % Test Not Performed Pleural Total Protein 3.3 (No Ref Range) g/dL Pleural LDH 1016 (No Ref Range) Units/L A. baumannii (PCR) Not Detected Not Detected (Not Detect) Claribel albicans (PCR) Not Detected Not Detected (Not Detect) C. glabrata (PCR) Not Detected Not Detected (Not Detect) C. krusei (PCR) Not Detected Not Detected (Not Detect) C. parapsilosis (PCR) Not Detected Not Detected (Not Detect) C. tropicalis (PCR) Not Detected Not Detected (Not Detect) Enterobacteriac sp PCR Not Detected Not Detected (Not Detect) E. cloacae complex PCR Not Detected Not Detected (Not Detect) Enterococcus sp PCR Not Detected Not Detected (Not Detect) E. coli (PCR) Not Detected Not Detected (Not Detect) H. influenzae (PCR) Not Detected Not Detected (Not Detect) Hepatitis A IgM Ab (Nonreactive) Hep Bs Antigen (Nonreactive) Hep B Core IgM Ab (Nonreactive) Hepatitis C Ab Screen (Nonreactive) HIV Ag/Ab Combo Qual (Nonreactive) Klebsiella oxytoca PCR Not Detected Not Detected (Not Detect) Klebsiella pneumoniae Not Detected Not Detected (Not Detect) List. monocytogenes PCR Not Detected Not Detected (Not Detect) N. meningitidis (PCR) Not Detected Not Detected (Not Detect) Proteus species (PCR) Not Detected Not Detected (Not Detect) Serratia marcescens PCR Not Detected Not Detected (Not Detect) Staphylococcus sp PCR DETECTED A DETECTED A (Not Detect) Staph aureus (PCR) DETECTED A DETECTED A (Not Detect) mecA-Methicil Res Gene DETECTED A DETECTED A (Not Detect) Streptococcus sp PCR Not Detected Not Detected (Not Detect) Group A Strep DNA Not Detected Not Detected (Not Detect) Group B Strep (PCR) Not Detected Not Detected (Not Detect) Strep pneumoniae (PCR) Not Detected Not Detected (Not Detect) P. aeruginosa (PCR) Not Detected Not Detected (Not Detect) Angi/B-Vanco Res Genes Not Detected N/A (Not Detect) KPC (blaKPC) Detect PCR Not Detected N/A (Not Detect) 03/14/17 03/14/17 Range/Units 05:23 05:23 Urine Test (Negative) Pleural Fluid Volume mL Pleural Appearance (Clear) Pleural RBC (0.000 - 0.002) M/mcL Pleural Tot Nuc Cell (0-1000) TNC/mcL Pleural Neutrophils % Pleural Band Neuts Pleural Eosinophils % Pleural Basophils Pleural Lymphocytes % % Pleural Monocytes % % Pleural Other Cells % Pleural Total Protein (No Ref Range) g/dL Pleural LDH (No Ref Range) Units/L A. baumannii (PCR) (Not Detect) Claribel albicans (PCR) (Not Detect) C. glabrata (PCR) (Not Detect) C. krusei (PCR) (Not Detect) C. parapsilosis (PCR) (Not Detect) C. tropicalis (PCR) (Not Detect) Enterobacteriac sp PCR (Not Detect) E. cloacae complex PCR (Not Detect) Enterococcus sp PCR (Not Detect) E. coli (PCR) (Not Detect) H. influenzae (PCR) (Not Detect) Hepatitis A IgM Ab Nonreactive (Nonreactive) Hep Bs Antigen Nonreactive (Nonreactive) Hep B Core IgM Ab Nonreactive (Nonreactive) Hepatitis C Ab Screen Reactive H (Nonreactive) HIV Ag/Ab Combo Qual Nonreactive (Nonreactive) Klebsiella oxytoca PCR (Not Detect) Klebsiella pneumoniae (Not Detect) List. monocytogenes PCR (Not Detect) N. meningitidis (PCR) (Not Detect) Proteus species (PCR) (Not Detect) Serratia marcescens PCR (Not Detect) Staphylococcus sp PCR (Not Detect) Staph aureus (PCR) (Not Detect) mecA-Methicil Res Gene (Not Detect) Streptococcus sp PCR (Not Detect) Group A Strep DNA (Not Detect) Group B Strep (PCR) (Not Detect) Strep pneumoniae (PCR) (Not Detect) P. aeruginosa (PCR) (Not Detect) Angi/B-Vanco Res Genes (Not Detect) KPC (blaKPC) Detect PCR (Not Detect) Exam - Constitutional Vitals: Temp Pulse Resp BP Pulse Ox 100.6 F H 103 18 147/81 94 03/22/17 07:46 03/22/17 07:46 03/22/17 07:46 03/22/17 07:46 03/22/17 08:08 General appearance: average body habitus, cooperative, no acute distress Exam: Non-toxic, but ill-appearing. - Head Head exam: Present: atraumatic, normal inspection, normocephalic - Eye Eye exam: Present: EOMI, normal appearance, PERRL Pupils: Present: normal accommodation Additional comments: No subconjunctival hemorrhage noted. - ENT ENT exam: Present: mucous membranes moist - Neck Neck exam: Present: normal inspection - Respiratory Respiratory exam: Present: CTAB. Absent: rales, respiratory distress, rhonchi, wheezes - Cardiovascular Cardiovascular exam: Present: RRR, +S1, +S2 - GI/Abdominal GI/Abdominal exam: Present: normal bowel sounds, soft. Absent: distended, tenderness - Extremities Exam Extremities exam: Present: normal inspection, pedal edema (1+ BLE). Absent: joint swelling, tenderness Additional comments: No endocarditis stigmata noted. - Back Exam Back exam: Present: normal inspection, paraspinal tenderness (bilateral lower back tenderness) - Neurological Exam Neurological exam: Present: alert, oriented X3, no focal deficits - Psychiatric Psychiatric exam: Present: normal affect, normal mood - Skin Skin exam: Present: dry, intact, normal color, warm Consult Discharge Plan - Plan Referrals: Afsaneh Worley, SKIP PITMAN [Advanced Practice Nurse] - (PLEASE TAKE WITH YOU TO YOUR APPOINTMENT A MONTH'S WORTH OF INCOME, THEY DO A SLIDING SCALE OF WHAT YOU WOULD HAVE TO PAY. PLEASE SHOW UP 20 MINS. EARLY FOR YOUR APPOINTMENT TO FILL OUT PAPER WORK. IF YOU NEED TO CANCEL PLEASE CALL [phone] WITH IN 24 HOURS OF YOUR APPOINTMENT TIME.)
[2017-03-23] MEDS: *HR* OxyCODONE Immed Rel 5 MG TABLET PO PRN ×2 (06:09→20:39)
[2017-03-23] MEDS: *HR* Enoxaparin 40 MG/0.4 ML SYRINGE SQ SCH (06:10)
[2017-03-23] MEDS: Vancomycin 1,250 MG in D5% in Water 250 ML IVPB SCH ×2 (06:10→18:08)
[2017-03-23] MEDS: Magnesium Oxide 400 MG TABLET PO SCH ×2 (08:23→20:39)
[2017-03-23] MEDS: Ketorolac 15 MG/ML VIAL IVP PRN (08:23)
[2017-03-23 08:24] LABS: QuantiFERON NIL 0.03 IU/mL; QuantiFERON-TB Gold In-Tube INDETERMINATE (Negative)
[2017-03-23 08:59] LABS: Basophils # 0.1 K/mcL (0.0-0.2); Basophils % 0.3 %; Eosinophils # 0.2 K/mcL (0.0-0.6); Eosinophils % 0.8 %; Hematocrit 26.3 % (35.3-44.9); Hemoglobin 8.5 g/dL (11.5-15.4); Immature Granulocytes % 1.2 % (0-4); Immature Platelets 1.1 % (1.1-6.1); Lymphocytes # 1.5 K/mcL (0.6-4.6); Lymphocytes % 7.2 %; Mean Corpuscular HGB Conc 32.3 g/dL (31.6-35.5); Mean Corpuscular Hemoglobin 28.2 pg (28.0-33.3); Mean Corpuscular Volume 87.4 fL (83.0-100.0); Mean Platelet Volume 8.5 fL (9.4-12.4); Monocytes # 0.9 K/mcL (0.0-1.3); Monocytes % 4.1 %; Neutrophils # 17.9 K/mcL (1.6-8.9); Platelet Count 619 K/mcL (140-400); Red Blood Count 3.01 M/mcL (3.82-4.97); Red Cell Distribution Width 14.5 % (11.5-14.5); Segmented Neutrophils % 86.4 %
[2017-03-23] MEDS: Acetaminophen 325 MG TABLET PO PRN (09:04)
[2017-03-23 09:21] LABS: BUN/Creatinine Ratio 6 (6-26); Calcium 8.1 mg/dL (8.6-10.8); Carbon Dioxide 30 mEq/L (19-29); Chloride 98 mEq/L (98-109); Glucose 87 mg/dL (70-99); Magnesium 1.7 mg/dL (1.6-2.6); Osmolality,Calculated 276 (280-300); Potassium 3.6 mEq/L (3.5-4.5); Sodium 135 mEq/L (136-145); eGFR For African Americans > 60 (> 60); eGFR For Non-African Americans > 60 (> 60)
[2017-03-23 09:30] LABS: Platelet Estimate Increased (Normal)
[2017-03-23 09:35] LABS: Blood Urea Nitrogen 4 mg/dL (7-20)
--- NOTE | 2017-03-23 09:47 | Internal Med Progress Note ---
<Geoff Cardona - Last Filed: 03/23/17 09:45> Date of Encounter: 03/23/17 Time of Encounter: 09:20 - Assessment and plan (1) Severe sepsis Current Visit: Yes Status: Acute Assessment and plan: Patient met septic criteria on admission. Cardiac revealed a mobile echodensity on the tricuspid valve consistent with vegetation. 03/13: Blood cultures are positive for GPC, PCR shows MRSA. CT of the abdomen and pelvis revealed a right piriformis muscle myositis. 03/13: blood cultures 2/2 positive for MRSA. 03/14: Patient underwent right-sided thoracentesis with removal of 450 ml of exudative pleural fluid. preliminary stain shows no bacteria. 03/15: blood cultures 2/2 positive for MRSA. 03/17: blood cultures 2/2 positive for MRSA. 03/18: blood cultures 2/2 negative so far. 03/20: Sepsis is resolving, still tachycardic, WBC trending down, max temp 100.2. Continue IV vancomycin. Patient's white count this morning was 17.9. 03/21: blood cx negative. Patient will need 6 weeks of antibiotics after negative blood cultures. (2) Acute respiratory failure with hypoxemia Current Visit: Yes Status: Acute Assessment and plan: 2/2 to pleural effusion and embolic lung cavitations. 03/13: -CTA of chest showed no PE, numerous scattered bilateral pulmonary nodules many of which demonstrate central cavitation, moderate right and small left pleural effusions. -Echocardiogram revealed LVEF 55%, mobile echodensity attached to the tricuspid valve consistent with a vegetation, severe tricuspid regurgitation. 03/14: -Patient underwent right-sided thoracentesis with removal of 450 ml of exudative pleural fluid. -Preliminary stain shows no bacteria. 03/18: -CT chest showed bilateral pleural effusions, partially located on the right. -Airspace disease in the middle lower lingula. -Multiple solid and cavitary nodules. -Patient is requiring 2 L of oxygen to keep saturations above 90%. -Continue oxygen supplementation, nebulizations, IV vancomycin. (3) Bacteremia Current Visit: Yes Status: Acute Assessment and plan: Continue IV Vancomycin. (4) Infective endocarditis Current Visit: Yes Status: Acute Assessment and plan: Continue IV Vancomycin. Qualifiers: Infective endocarditis organism: bacterial Chronicity: acute Qualified Code(s): I33.0 - Acute and subacute infective endocarditis (5) Loculated pleural effusion Current Visit: Yes Status: Acute Assessment and plan: Effusion may need drained. Patient denied having any shortness of breath this morning. On 03/21/2017, patient had diminished breath sounds on the right side. Patient's breathing has improved. No wheezes or crackles heard in lung farmer. Pulmonology on board. (6) Myositis Current Visit: Yes Status: Acute Assessment and plan: Right piriformis muscle myositis. Qualifiers: Myositis type: infective Myositis location: other site Qualified Code(s) : M60.08 - Infective myositis, other site (7) Septic embolism Current Visit: Yes Status: Acute Assessment and plan: Plan as above. - Subjective Interval history: Patient was seen and examined at bedside this morning. Patient states she is feeling somewhat better than when she did yesterday. She denies having any breathing issues, states that she slept well last night. Her only complaint this morning is some back pain. Patient currently denies having any fever, chills, nausea, vomiting, or chest pain. - Constitutional Vitals: Temp Pulse Resp BP Pulse Ox 100.0 F H 114 20 137/77 95 03/23/17 08:30 03/23/17 08:30 03/23/17 08:30 03/23/17 08:30 03/23/17 08:30 General appearance: Present: cooperative, A&O X 3, pleasant, no acute distress, answers questions appropriately - ENT ENT exam: Present: mucous membranes dry - Neck Neck exam general surgery: Present: supple, trachea midline. Absent: lymphadenopathy - Respiratory Respiratory exam: Present: CTAB. Absent: accessory muscle use, rales, rhonchi, wheezes - Cardiovascular Cardiovascular exam: Present: +S1, +S2, systolic murmur. Absent: diastolic murmur, gallop, RRR, rubs Internal Medicine: Result - Labs CBC & Chem 7: 03/23/17 08:35 03/23/17 08:35 Labs: Short CBC 03/23/17 Range/Units 08:35 WBC 20.7 H (4.3-11.1) K/mcL Hgb 8.5 L (11.5-15.4) g/dL Hct 26.3 L (35.3-44.9) % Plt Count 619 H D (140-400) K/mcL Neutrophils # 17.9 H (1.6-8.9) K/mcL BMP 03/23/17 08:35 Sodium 135 L Potassium 3.6 Chloride 98 Carbon Dioxide 30 H BUN 4 L Creatinine 0.67 Glucose 87 Calcium 8.1 L - ABG Interpretation ABG results: PT/INR, D-dimer PT 15.2 Seconds (9.4-12.1) H 03/20/17 04:48 Consult Discharge Plan - Plan Referrals: Afsaneh Worley, OXYGRAPH OPERATOR [Advanced Practice Nurse] - (PLEASE TAKE WITH YOU TO YOUR APPOINTMENT A MONTH'S WORTH OF INCOME, THEY DO A SLIDING SCALE OF WHAT YOU WOULD HAVE TO PAY. PLEASE SHOW UP 20 MINS. EARLY FOR YOUR APPOINTMENT TO FILL OUT PAPER WORK. IF YOU NEED TO CANCEL PLEASE CALL [phone] WITH IN 24 HOURS OF YOUR APPOINTMENT TIME.) <Ananth Mac - Last Filed: 03/23/17 18:46> Date of Encounter: 03/23/17 - Assessment and plan (1) Reaction to QuantiFERON-TB test Current Visit: Yes Status: Acute (2) Sepsis due to methicillin resistant Staphylococcus aureus (MRSA) Current Visit: Yes Status: Acute (3) Acute respiratory failure with hypoxemia Current Visit: Yes Status: Acute (4) Bacteremia Current Visit: Yes Status: Acute (5) Infective endocarditis Current Visit: Yes Status: Acute Qualifiers: Infective endocarditis organism: bacterial Chronicity: acute Qualified Code(s): I33.0 - Acute and subacute infective endocarditis (6) Myositis Current Visit: Yes Status: Acute Qualifiers: Myositis type: infective Myositis location: other site Qualified Code(s) : M60.08 - Infective myositis, other site (7) Septic embolism Current Visit: Yes Status: Acute (8) Loculated pleural effusion Current Visit: Yes Status: Acute (9) Hepatitis C Current Visit: Yes Status: Chronic Qualifiers: Viral hepatitis chronicity: chronic Hepatic coma status: without hepatic coma Qualified Code(s): B18.2 - Chronic viral hepatitis C (10) IV drug user Current Visit: Yes Status: Chronic (11) Tobacco abuse Current Visit: Yes Status: Acute - Constitutional Vitals: Temp Pulse Resp BP Pulse Ox 99.2 F 104 28 138/74 94 03/23/17 16:23 03/23/17 16:23 03/23/17 16:23 03/23/17 16:23 03/23/17 16:23 Internal Medicine: Result - Labs CBC & Chem 7: 03/23/17 08:35 03/23/17 08:35 Labs: Short CBC 03/23/17 Range/Units 08:35 WBC 20.7 H (4.3-11.1) K/mcL Hgb 8.5 L (11.5-15.4) g/dL Hct 26.3 L (35.3-44.9) % Plt Count 619 H D (140-400) K/mcL Neutrophils # 17.9 H (1.6-8.9) K/mcL BMP 03/23/17 08:35 Sodium 135 L Potassium 3.6 Chloride 98 Carbon Dioxide 30 H BUN 4 L Creatinine 0.67 Glucose 87 Calcium 8.1 L - ABG Interpretation ABG results: PT/INR, D-dimer PT 15.2 Seconds (9.4-12.1) H 03/20/17 04:48 - Attending Attestation I examined this patient and my medical decision-making was reviewed with the Resident Physician on 03/23/17. I agree with the documented findings, disposition and treatment plan as described except to the extent set forth below. Ms. Silva is currently admitted for endocarditis and MRSA bacteremia. She remains high risk due to IV meds as well as new finding of Quantiferon indeterminate. Ms. Silva feels OK today and is doing a little better. Quantiferon indeterminate. Blood cx now negative. No fever or chills now. No GI symptoms. Eating better. Exam Alert. Comfortable now Mucus membranes moist Heart reg with murmur Lungs with some rhonchi Abd soft No edema I/P 1. Indeterminate quantiferon - repeat. PPD ordered 2. MRSA endocarditis Further diagnoses and plan as above.
[2017-03-23] MEDS ORDERED: Tuberculin Skin Test (PPD) 5 TUB/0.1 ML VIAL ID ONE (11:52)
--- NOTE | 2017-03-23 11:57 | Infectious Disease Progress No ---
Date of Encounter: 03/23/17 Time of Encounter: 11:53 - Assessment and Plan (1) Severe sepsis Current Visit: Yes Status: Acute The patient had four SIRS criteria plus hypotension and elevated liver enzymes on admission. Likely secondary to bacteremia and endocarditis. She has been afebrile. WBC is back up a little today. Tachycardia persists. Blood cultures drawn 03/13/17 are positive 2/2 sets for MRSA. Repeat blood cultures drawn 03/15/17 are positive 1/2 sets for MRSA. Additional blood cultures drawn 03/17/17 are positive 2/2 sets. Additional blood cultures drawn 03/18/17 are positive 2/2 sets again. Repeat blood cultures drawn 03/21/17 are NGTD x 2 sets. (2) Bacteremia Current Visit: Yes Status: Acute Causative organism MRSA. Source likely IV drug use. Complicated due to septic emboli in the lungs. Blood cultures drawn 03/13/17 are positive 2/2 sets for MRSA. Repeat blood cultures drawn 03/15/17 are positive 1/2 sets for MRSA. Additional blood cultures drawn 03/17/17 are positive 2/2 sets. Additional blood cultures drawn 03/18/17 came back positive this morning 2/2 sets for MRSA again. Additional blood cultures drawn 03/21/17 are NGTD x 2 sets. The patient has two major and two minor Modified Lares's Criteria. TTE completed 03/13/17 showed a mobile echodensity on the tricuspid valve consistent with vegetation. Continue Vancomycin IV. Pharmacy to dose. Goal trough ~15. Most recent vanc trough 18.2. Duration of treatment depends on the clinical picture, but likely 6 weeks of IV antibiotics due to the endocarditis. Will start counting from the day the first set of blood cultures were drawn. Monitor renal function and for drug toxicity and dose-adjust antibiotics. Hold placement of PICC line until blood cultures are negative. (3) Infective endocarditis Current Visit: Yes Status: Acute Causative organism MRSA. TTE completed 03/13/17 showed mobile echodensity on the tricuspid valve consistent with vegetation. Likely secondary to MRSA bacteremia. Antibiotic recommendations as above. Qualifiers: Infective endocarditis organism: bacterial Chronicity: acute Qualified Code(s): I33.0 - Acute and subacute infective endocarditis (4) Septic embolism Current Visit: Yes Status: Acute CT scan of the chest shows bilateral pulmonary nodules with central cavitation concerning for septic emboli versus atypical infection. Likely secondary to right-sided endocarditis. Pulmonology consulted and following. Feels that given the clinical picture, these nodules are likely septic emboli. Quantiferon came back indeterminate. Patient placed in respiratory isolation per the primary team. Repeat Quantiferon ordered and pending. Place PPD now. If negative in 48 hours, can discontinue respiratory precautions. Continue antibiotics as above. (5) Abscess Current Visit: Yes Status: Inactive MRI of the L-spine showed findings concerning for possible septic left sacroiliac arthritis with abscess. CT scan negative for abscess. (6) Septic arthritis Current Visit: Yes Status: Acute MRI shows septic arthritis of the left sacroiliac joint with abscess. Consult Dr. Bean for further recommendations. Continue antibiotics as above. Qualifiers: Septic arthritis location: vertebra Septic arthritis organism: staphylococcal Qualified Code(s): M00.08 - Staphylococcal arthritis, vertebrae (7) Loculated pleural effusion Current Visit: Yes Status: Acute CT of the chest showed a moderate right and small left pleural effusions that are partially loculated. IR consulted. Status post right thoracentesis 03/14/17. 450ml red fluid drained per IR nurse notes. Appears exudative, but culture is negative. Left thoracentesis cancelled due to the fact that it is very small. Repeat CT scan completed 03/18/17 shows bilateral pleural effusions, partially loculated on the right, but no convincing evidence for empyema. Given the persistent bacteremia, may need to consider re-imaging to evaluate again. Pulmonology consulted and following. (8) Myositis Current Visit: Yes Status: Acute Location: Right piriformis muscle. CT of the abdomen and pelvis shows right piriformis myositis. Continue antibiotics as above. Qualifiers: Myositis type: infective Myositis location: other site Qualified Code(s) : M60.08 - Infective myositis, other site (9) Elevated transaminase level Current Visit: Yes Status: Resolved Etiology unclear: Chronic Hep C. vs. acute infection vs. other. Resolved. (10) Back pain Current Visit: Yes Status: Acute Improved. Likely secondary to right piriformis myositis and left sacroiliac septic arthritis. Patient continues to complain of severe pain, but appears improved on clinical exam. MRI of the L-spine shows septic arthritis of the left sacroiliac joint. CT scan of the pelvis ruled out presence of associated abscess. Pain management per the primary team. Qualifiers: Back pain location: low back pain Chronicity: acute Back pain laterality : midline Sciatica presence: without sciatica Qualified Code(s): M54.5 - Low back pain (11) Hepatitis C Current Visit: Yes Status: Chronic Hep C antibody positive. Refer to GI as an outpatient for management. Qualifiers: Viral hepatitis chronicity: chronic Hepatic coma status: without hepatic coma Qualified Code(s): B18.2 - Chronic viral hepatitis C (12) IV drug user Current Visit: Yes Status: Chronic HIV non-reactive. Known Hep C positive. Hep A and Hep B non-reactive. (13) Anemia Current Visit: Yes Status: Acute Etiology unclear. Hgb improved after 2 units PRBCs. Stable. No acute bleeding noted on exam. Further evaluation and management per the primary team. Qualifiers: Anemia type: unspecified type Qualified Code(s): D64.9 - Anemia, unspecified - Subjective Interval history: Patient seen and examined. No acute events noted overnight. Patient states she feels better today and is sitting up in the chair upon my entrance into the room. She denies fevers or rigors or chills. She denies any headache or neck pain. She denies any chest pain, shortness of breath, or cough. She denies any diarrhea or constipation and reports an improvement in her nausea. She denies abdominal pain. She denies any urinary complaints. She continues to complain of lower back pain, but states it is improved. She denies any oral thrush or new skin lesions. Infect Dis PN-Objective Data - Labs CBC & Chem 7: 03/24/17 07:01 03/24/17 05:50 Labs: Laboratory Results - last 24 hr 03/18/17 03/23/17 03/23/17 22:26 08:03 08:35 WBC 20.7 H RBC 3.01 L Hgb 8.5 L Hct 26.3 L MCV 87.4 MCH 28.2 MCHC 32.3 RDW 14.5 Plt Count 619 H D MPV 8.5 L Immature Gran % 1.2 Seg Neutrophils % 86.4 Lymphocytes % 7.2 Monocytes % 4.1 Eosinophils % 0.8 Basophils % 0.3 Neutrophils # 17.9 H Lymphocytes # 1.5 Monocytes # 0.9 Eosinophils # 0.2 Basophils # 0.1 Platelet Estimate Increased H Immature Plt Fraction 1.1 Sodium Potassium Chloride Carbon Dioxide BUN Creatinine Est GFR ( Amer) Est GFR (Non-Af Amer) BUN/Creatinine Ratio Glucose Calculated Osmolality Calcium Magnesium TB (QFT) Gold In Tube INDETERMINATE TB Test (QFT) Nil 0.03 TB Test Mitogen - Nil 0.04 Specimen Rejected Clotted 03/23/17 08:35 WBC RBC Hgb Hct MCV MCH MCHC RDW Plt Count MPV Immature Gran % Seg Neutrophils % Lymphocytes % Monocytes % Eosinophils % Basophils % Neutrophils # Lymphocytes # Monocytes # Eosinophils # Basophils # Platelet Estimate Immature Plt Fraction Sodium 135 L Potassium 3.6 Chloride 98 Carbon Dioxide 30 H BUN 4 L Creatinine 0.67 Est GFR ( Amer) > 60 Est GFR (Non-Af Amer) > 60 BUN/Creatinine Ratio 6 Glucose 87 Calculated Osmolality 276 L Calcium 8.1 L Magnesium 1.7 TB (QFT) Gold In Tube TB Test (QFT) Nil TB Test Mitogen - Nil Specimen Rejected Cultures: Cultures 03/18/17 13:33 Blood Culture - Final Peripheral Venipuncture Methicillin Resistant S.aureus 03/21/17 13:40 Blood Culture - Preliminary Peripheral Venipuncture No growth. 03/21/17 13:29 Blood Culture - Preliminary Peripheral Venipuncture No growth. 03/18/17 13:23 Blood Culture - Final Peripheral Venipuncture Methicillin Resistant S.aureus 03/15/17 05:47 Blood Culture - Final Peripheral Venipuncture No growth. 03/17/17 03:28 Blood Culture - Final Peripheral Venipuncture Methicillin Resistant S.aureus 03/17/17 03:25 Blood Culture - Final Peripheral Venipuncture Methicillin Resistant S.aureus 03/15/17 05:47 Blood Culture - Final Peripheral Venipuncture Methicillin Resistant S.aureus 03/14/17 13:30 Body Fluid Culture - Final Pleural Fluid 03/14/17 13:30 Acid Fast Stain - Final Pleural Fluid Serology 03/18/17 03/18/17 03/18/17 Range/Units 22:26 22:26 13:33 Urine Test Negative (Negative) Pleural Fluid Volume mL Pleural Appearance (Clear) Pleural RBC (0.000 - 0.002) M/mcL Pleural Tot Nuc Cell (0-1000) TNC/mcL Pleural Neutrophils % Pleural Band Neuts Pleural Eosinophils % Pleural Basophils Pleural Lymphocytes % % Pleural Monocytes % % Pleural Other Cells % Pleural Total Protein (No Ref Range) g/dL Pleural LDH (No Ref Range) Units/L A. baumannii (PCR) Not Detected (Not Detect) Claribel albicans (PCR) Not Detected (Not Detect) C. glabrata (PCR) Not Detected (Not Detect) C. krusei (PCR) Not Detected (Not Detect) C. parapsilosis (PCR) Not Detected (Not Detect) C. tropicalis (PCR) Not Detected (Not Detect) Enterobacteriac sp PCR Not Detected (Not Detect) E. cloacae complex PCR Not Detected (Not Detect) Enterococcus sp PCR Not Detected (Not Detect) E. coli (PCR) Not Detected (Not Detect) H. influenzae (PCR) Not Detected (Not Detect) Hepatitis A IgM Ab (Nonreactive) Hep Bs Antigen (Nonreactive) Hep B Core IgM Ab (Nonreactive) Hepatitis C Ab Screen (Nonreactive) HIV Ag/Ab Combo Qual (Nonreactive) Klebsiella oxytoca PCR Not Detected (Not Detect) Klebsiella pneumoniae Not Detected (Not Detect) List. monocytogenes PCR Not Detected (Not Detect) N. meningitidis (PCR) Not Detected (Not Detect) Proteus species (PCR) Not Detected (Not Detect) Serratia marcescens PCR Not Detected (Not Detect) Staphylococcus sp PCR DETECTED A (Not Detect) Staph aureus (PCR) DETECTED A (Not Detect) mecA-Methicil Res Gene DETECTED A (Not Detect) Streptococcus sp PCR Not Detected (Not Detect) Group A Strep DNA Not Detected (Not Detect) Group B Strep (PCR) Not Detected (Not Detect) Strep pneumoniae (PCR) Not Detected (Not Detect) P. aeruginosa (PCR) Not Detected (Not Detect) TB (QFT) Gold In Tube INDETERMINATE (Negative) TB Test (QFT) Nil 0.03 IU/mL TB Test Mitogen - Nil 0.04 IU/mL Angi/B-Vanco Res Genes N/A (Not Detect) KPC (blaKPC) Detect PCR N/A (Not Detect) 03/18/17 03/17/17 03/15/17 Range/Units 13:23 03:25 05:47 Urine Test (Negative) Pleural Fluid Volume mL Pleural Appearance (Clear) Pleural RBC (0.000 - 0.002) M/mcL Pleural Tot Nuc Cell (0-1000) TNC/mcL Pleural Neutrophils % Pleural Band Neuts Pleural Eosinophils % Pleural Basophils Pleural Lymphocytes % % Pleural Monocytes % % Pleural Other Cells % Pleural Total Protein (No Ref Range) g/dL Pleural LDH (No Ref Range) Units/L A. baumannii (PCR) Not Detected Not Detected Not Detected (Not Detect) Claribel albicans (PCR) Not Detected Not Detected Not Detected (Not Detect) C. glabrata (PCR) Not Detected Not Detected Not Detected (Not Detect) C. krusei (PCR) Not Detected Not Detected Not Detected (Not Detect) C. parapsilosis (PCR) Not Detected Not Detected Not Detected (Not Detect) C. tropicalis (PCR) Not Detected Not Detected Not Detected (Not Detect) Enterobacteriac sp PCR Not Detected Not Detected Not Detected (Not Detect) E. cloacae complex PCR Not Detected Not Detected Not Detected (Not Detect) Enterococcus sp PCR Not Detected Not Detected Not Detected (Not Detect) E. coli (PCR) Not Detected Not Detected Not Detected (Not Detect) H. influenzae (PCR) Not Detected Not Detected Not Detected (Not Detect) Hepatitis A IgM Ab (Nonreactive) Hep Bs Antigen (Nonreactive) Hep B Core IgM Ab (Nonreactive) Hepatitis C Ab Screen (Nonreactive) HIV Ag/Ab Combo Qual (Nonreactive) Klebsiella oxytoca PCR Not Detected Not Detected Not Detected (Not Detect) Klebsiella pneumoniae Not Detected Not Detected Not Detected (Not Detect) List. monocytogenes PCR Not Detected Not Detected Not Detected (Not Detect) N. meningitidis (PCR) Not Detected Not Detected Not Detected (Not Detect) Proteus species (PCR) Not Detected Not Detected Not Detected (Not Detect) Serratia marcescens PCR Not Detected Not Detected Not Detected (Not Detect) Staphylococcus sp PCR Not Detected DETECTED A DETECTED A (Not Detect) Staph aureus (PCR) DETECTED A DETECTED A DETECTED A (Not Detect) mecA-Methicil Res Gene DETECTED A DETECTED A DETECTED A ( Not Detect) Streptococcus sp PCR Not Detected Not Detected Not Detected (Not Detect) Group A Strep DNA Not Detected Not Detected Not Detected (Not Detect) Group B Strep (PCR) Not Detected Not Detected Not Detected (Not Detect) Strep pneumoniae (PCR) Not Detected Not Detected Not Detected (Not Detect) P. aeruginosa (PCR) Not Detected Not Detected Not Detected (Not Detect) TB (QFT) Gold In Tube (Negative) TB Test (QFT) Nil IU/mL TB Test Mitogen - Nil IU/mL Angi/B-Vanco Res Genes Not Detected Not Detected N/A (Not Detect) KPC (blaKPC) Detect PCR Not Detected Not Detected N/A (Not Detect) 03/14/17 03/14/17 03/14/17 Range/Units 13:30 05:23 05:23 Urine Test (Negative) Pleural Fluid Volume 500.0 mL Pleural Appearance Bloody A (Clear) Pleural RBC 0.091 H (0.000 - 0.002) M/mcL Pleural Tot Nuc Cell 6363 H (0-1000) TNC/mcL Pleural Neutrophils 80.0 % Pleural Band Neuts Test Not Performed Pleural Eosinophils 2.0 % Pleural Basophils Test Not Performed Pleural Lymphocytes % 15.0 % Pleural Monocytes % 3.0 % Pleural Other Cells % Test Not Performed Pleural Total Protein 3.3 (No Ref Range) g/dL Pleural LDH 1016 (No Ref Range) Units/L A. baumannii (PCR) (Not Detect) Claribel albicans (PCR) (Not Detect) C. glabrata (PCR) (Not Detect) C. krusei (PCR) (Not Detect) C. parapsilosis (PCR) (Not Detect) C. tropicalis (PCR) (Not Detect) Enterobacteriac sp PCR (Not Detect) E. cloacae complex PCR (Not Detect) Enterococcus sp PCR (Not Detect) E. coli (PCR) (Not Detect) H. influenzae (PCR) (Not Detect) Hepatitis A IgM Ab Nonreactive (Nonreactive) Hep Bs Antigen Nonreactive (Nonreactive) Hep B Core IgM Ab Nonreactive (Nonreactive) Hepatitis C Ab Screen Reactive H (Nonreactive) HIV Ag/Ab Combo Qual Nonreactive (Nonreactive) Klebsiella oxytoca PCR (Not Detect) Klebsiella pneumoniae (Not Detect) List. monocytogenes PCR (Not Detect) N. meningitidis (PCR) (Not Detect) Proteus species (PCR) (Not Detect) Serratia marcescens PCR (Not Detect) Staphylococcus sp PCR (Not Detect) Staph aureus (PCR) (Not Detect) mecA-Methicil Res Gene (Not Detect) Streptococcus sp PCR (Not Detect) Group A Strep DNA (Not Detect) Group B Strep (PCR) (Not Detect) Strep pneumoniae (PCR) (Not Detect) P. aeruginosa (PCR) (Not Detect) TB (QFT) Gold In Tube (Negative) TB Test (QFT) Nil IU/mL TB Test Mitogen - Nil IU/mL Angi/B-Vanco Res Genes (Not Detect) KPC (blaKPC) Detect PCR (Not Detect) Exam - Constitutional Vitals: Temp Pulse Resp BP Pulse Ox 100.0 F H 114 20 137/77 95 03/23/17 08:30 03/23/17 08:30 03/23/17 08:30 03/23/17 08:30 03/23/17 08:30 General appearance: average body habitus, cooperative, no acute distress - Head Head exam: Present: atraumatic, normal inspection, normocephalic - Eye Eye exam: Present: EOMI, normal appearance, PERRL Pupils: Present: normal accommodation Additional comments: No subconjunctival hemorrhage noted. - ENT ENT exam: Present: mucous membranes moist - Neck Neck exam: Present: normal inspection - Respiratory Respiratory exam: Present: CTAB. Absent: rales, respiratory distress, rhonchi, wheezes - Cardiovascular Cardiovascular exam: Present: RRR, +S1, +S2 - GI/Abdominal GI/Abdominal exam: Present: normal bowel sounds, soft. Absent: distended, tenderness - Extremities Exam Extremities exam: Present: normal inspection. Absent: joint swelling, pedal edema, tenderness Additional comments: No endocarditis stigmata noted. - Back Exam Back exam: Present: normal inspection, paraspinal tenderness (bilateral lower back) - Neurological Exam Neurological exam: Present: alert, oriented X3, no focal deficits - Psychiatric Psychiatric exam: Present: normal affect, normal mood - Skin Skin exam: Present: dry, intact, normal color, warm Consult Discharge Plan - Plan Referrals: Afsaneh Worley, FLOOR COVERING PRINTER ASSISTANT [Advanced Practice Nurse] - (PLEASE TAKE WITH YOU TO YOUR APPOINTMENT A MONTH'S WORTH OF INCOME, THEY DO A SLIDING SCALE OF WHAT YOU WOULD HAVE TO PAY. PLEASE SHOW UP 20 MINS. EARLY FOR YOUR APPOINTMENT TO FILL OUT PAPER WORK. IF YOU NEED TO CANCEL PLEASE CALL [phone] WITH IN 24 HOURS OF YOUR APPOINTMENT TIME.) - Attending Attestation I examined this patient and my medical decision-making was reviewed with the Resident Physician. I agree with the documented findings, disposition and treatment plan as described except to the extent set forth below.
[2017-03-23] MEDS: Ibuprofen 600 MG TABLET PO PRN (18:08)
[2017-03-24] MEDS: *HR* Enoxaparin 40 MG/0.4 ML SYRINGE SQ SCH (06:08)
[2017-03-24] MEDS: Vancomycin 1,250 MG in D5% in Water 250 ML IVPB SCH ×2 (06:08→18:12)
[2017-03-24] MEDS: Ondansetron 4 MG/2 ML VIAL IVP PRN ×2 (06:09→18:12)
[2017-03-24] MEDS: *HR* OxyCODONE Immed Rel 5 MG TABLET PO PRN ×2 (06:09→18:12)
[2017-03-24 06:46] LABS: BUN/Creatinine Ratio 7 (6-26); Calcium 8.1 mg/dL (8.6-10.8); Carbon Dioxide 30 mEq/L (19-29); Chloride 100 mEq/L (98-109); Glucose 79 mg/dL (70-99); Osmolality,Calculated 278 (280-300); Potassium 3.4 mEq/L (3.5-4.5); Sodium 136 mEq/L (136-145); eGFR For African Americans > 60 (> 60); eGFR For Non-African Americans > 60 (> 60)
[2017-03-24 06:48] LABS: Blood Urea Nitrogen 5 mg/dL (7-20)
[2017-03-24 07:47] LABS: Basophils # 0.1 K/mcL (0.0-0.2); Basophils % 0.4 %; Eosinophils # 0.2 K/mcL (0.0-0.6); Eosinophils % 0.9 %; Hematocrit 25.6 % (35.3-44.9); Hemoglobin 8.1 g/dL (11.5-15.4); Immature Granulocytes % 0.8 % (0-4); Immature Platelets 4.1 % (1.1-6.1); Lymphocytes # 1.5 K/mcL (0.6-4.6); Lymphocytes % 7.4 %; Mean Corpuscular HGB Conc 31.6 g/dL (31.6-35.5); Mean Corpuscular Hemoglobin 27.9 pg (28.0-33.3); Mean Corpuscular Volume 88.3 fL (83.0-100.0); Monocytes # 1.1 K/mcL (0.0-1.3); Monocytes % 5.5 %; Neutrophils # 16.8 K/mcL (1.6-8.9); Platelet Count 416 K/mcL (140-400); Red Cell Distribution Width 14.6 % (11.5-14.5)
[2017-03-24] MEDS: Ibuprofen 600 MG TABLET PO PRN (09:46)
[2017-03-24] MEDS: Magnesium Oxide 400 MG TABLET PO SCH ×2 (09:46→20:21)
--- NOTE | 2017-03-24 10:00 | Infectious Disease Progress No ---
Date of Encounter: 03/24/17 Time of Encounter: 09:58 - Assessment and Plan (1) Severe sepsis Current Visit: Yes Status: Acute The patient had four SIRS criteria plus hypotension and elevated liver enzymes on admission. Likely secondary to bacteremia and endocarditis. She has been afebrile. WBC continues to be elevated, but improved since yesterday. She continues to have intermittent tachycardia. Blood cultures drawn 03/13/17 are positive 2/2 sets for MRSA. Repeat blood cultures drawn 03/15/17 are positive 1/2 sets for MRSA. Additional blood cultures drawn 03/17/17 are positive 2/2 sets. Additional blood cultures drawn 03/18/17 are positive 2/2 sets again. Repeat blood cultures drawn 03/21/17 are NGTD x 2 sets. (2) Bacteremia Current Visit: Yes Status: Acute Causative organism MRSA. Source likely IV drug use. Complicated due to septic emboli in the lungs. Blood cultures drawn 03/13/17 are positive 2/2 sets for MRSA. Repeat blood cultures drawn 03/15/17 are positive 1/2 sets for MRSA. Additional blood cultures drawn 03/17/17 are positive 2/2 sets. Additional blood cultures drawn 03/18/17 came back positive this morning 2/2 sets for MRSA again. Additional blood cultures drawn 03/21/17 are NGTD x 2 sets. The patient has two major and two minor Modified Lares's Criteria. TTE completed 03/13/17 showed a mobile echodensity on the tricuspid valve consistent with vegetation. Continue Vancomycin IV. Pharmacy to dose. Goal trough ~15. Most recent vanc trough 18.2. Duration of treatment depends on the clinical picture, but likely 6 weeks of IV antibiotics due to the endocarditis. Will start counting from the day the first set of negative blood cultures were drawn. Monitor renal function and for drug toxicity and dose-adjust antibiotics. Hold placement of PICC line until blood cultures are negative. (3) Infective endocarditis Current Visit: Yes Status: Acute Causative organism MRSA. TTE completed 03/13/17 showed mobile echodensity on the tricuspid valve consistent with vegetation. Likely secondary to MRSA bacteremia. Antibiotic recommendations as above. Qualifiers: Infective endocarditis organism: bacterial Chronicity: acute Qualified Code(s): I33.0 - Acute and subacute infective endocarditis (4) Septic embolism Current Visit: Yes Status: Acute CT scan of the chest shows bilateral pulmonary nodules with central cavitation concerning for septic emboli versus atypical infection. Likely secondary to right-sided endocarditis. Pulmonology consulted and following. Feels that given the clinical picture, these nodules are likely septic emboli. Quantiferon came back indeterminate. Patient placed in respiratory isolation per the primary team. Repeat Quantiferon ordered and pending. PPD placed 03/23/17. If negative at 48 hours, discontinue respiratory isolation. Continue antibiotics as above. (5) Abscess Current Visit: Yes Status: Inactive MRI of the L-spine showed findings concerning for possible septic left sacroiliac arthritis with abscess. CT scan negative for abscess. (6) Septic arthritis Current Visit: Yes Status: Acute MRI shows septic arthritis of the left sacroiliac joint with abscess. Consult Dr. Bean for further recommendations. Continue antibiotics as above. Qualifiers: Septic arthritis location: vertebra Septic arthritis organism: staphylococcal Qualified Code(s): M00.08 - Staphylococcal arthritis, vertebrae (7) Loculated pleural effusion Current Visit: Yes Status: Acute CT of the chest showed a moderate right and small left pleural effusions that are partially loculated. IR consulted. Status post right thoracentesis 03/14/17. 450ml red fluid drained per IR nurse notes. Appears exudative, but culture is negative. Left thoracentesis cancelled due to the fact that it is very small. Repeat CT scan completed 03/18/17 shows bilateral pleural effusions, partially loculated on the right, but no convincing evidence for empyema. Given the persistent leukocytosis, may need to consider re-imaging to evaluate again. Pulmonology consulted and following. (8) Myositis Current Visit: Yes Status: Acute Location: Right piriformis muscle. CT of the abdomen and pelvis shows right piriformis myositis. Continue antibiotics as above. Qualifiers: Myositis type: infective Myositis location: other site Qualified Code(s) : M60.08 - Infective myositis, other site (9) Elevated transaminase level Current Visit: Yes Status: Resolved Etiology unclear: Chronic Hep C. vs. acute infection vs. other. Resolved. (10) Back pain Current Visit: Yes Status: Acute Improved. Likely secondary to right piriformis myositis and left sacroiliac septic arthritis. Patient continues to complain of severe pain, but appears improved on clinical exam. MRI of the L-spine shows septic arthritis of the left sacroiliac joint. CT scan of the pelvis ruled out presence of associated abscess. Pain management per the primary team. Qualifiers: Back pain location: low back pain Chronicity: acute Back pain laterality : midline Sciatica presence: without sciatica Qualified Code(s): M54.5 - Low back pain (11) Hepatitis C Current Visit: Yes Status: Chronic Hep C antibody positive. Refer to GI as an outpatient for management. Qualifiers: Viral hepatitis chronicity: chronic Hepatic coma status: without hepatic coma Qualified Code(s): B18.2 - Chronic viral hepatitis C (12) IV drug user Current Visit: Yes Status: Chronic HIV non-reactive. Known Hep C positive. Hep A and Hep B non-reactive. (13) Anemia Current Visit: Yes Status: Acute Etiology unclear. Hgb improved after 2 units PRBCs. Stable. No acute bleeding noted on exam. Further evaluation and management per the primary team. Qualifiers: Anemia type: unspecified type Qualified Code(s): D64.9 - Anemia, unspecified - Subjective Interval history: Patient seen and examined. Patient states she feels worse today. She reports she drank Ensure that had been sitting on her table all day and she started having nausea and vomiting and chills overnight. She denies any headache or neck pain. She denies any chest pain, shortness of breath, or cough. She denies any diarrhea or constipation. She denies abdominal pain. She denies any urinary complaints. She continues to complain of lower back pain that she states is worse today because her pain medication was discontinued. She denies any oral thrush or new skin lesions. Infect Dis PN-Objective Data - Labs CBC & Chem 7: 03/24/17 07:01 03/24/17 05:50 Labs: Laboratory Results - last 24 hr 03/24/17 03/24/17 03/24/17 05:50 06:38 07:01 WBC 19.7 H RBC 2.90 L Hgb 8.1 L Hct 25.6 L MCV 88.3 MCH 27.9 L MCHC 31.6 RDW 14.6 H Plt Count 416 H MPV 10.0 Immature Gran % 0.8 Seg Neutrophils % 85.0 Lymphocytes % 7.4 Monocytes % 5.5 Eosinophils % 0.9 Basophils % 0.4 Neutrophils # 16.8 H Lymphocytes # 1.5 Monocytes # 1.1 Eosinophils # 0.2 Basophils # 0.1 Immature Plt Fraction 4.1 Sodium 136 Potassium 3.4 L Chloride 100 Carbon Dioxide 30 H BUN 5 L Creatinine 0.72 Est GFR ( Amer) > 60 Est GFR (Non-Af Amer) > 60 BUN/Creatinine Ratio 7 Glucose 79 Calculated Osmolality 278 L Calcium 8.1 L Specimen Rejected Clotted Cultures: Cultures 03/18/17 13:33 Blood Culture - Final Peripheral Venipuncture Methicillin Resistant S.aureus 03/21/17 13:40 Blood Culture - Preliminary Peripheral Venipuncture No growth. 03/21/17 13:29 Blood Culture - Preliminary Peripheral Venipuncture No growth. 03/18/17 13:23 Blood Culture - Final Peripheral Venipuncture Methicillin Resistant S.aureus 03/15/17 05:47 Blood Culture - Final Peripheral Venipuncture No growth. 03/17/17 03:28 Blood Culture - Final Peripheral Venipuncture Methicillin Resistant S.aureus 03/17/17 03:25 Blood Culture - Final Peripheral Venipuncture Methicillin Resistant S.aureus 03/15/17 05:47 Blood Culture - Final Peripheral Venipuncture Methicillin Resistant S.aureus 03/14/17 13:30 Body Fluid Culture - Final Pleural Fluid 03/14/17 13:30 Acid Fast Stain - Final Pleural Fluid Serology 03/18/17 03/18/17 03/18/17 Range/Units 22:26 22:26 13:33 Urine Test Negative (Negative) Pleural Fluid Volume mL Pleural Appearance (Clear) Pleural RBC (0.000 - 0.002) M/mcL Pleural Tot Nuc Cell (0-1000) TNC/mcL Pleural Neutrophils % Pleural Band Neuts Pleural Eosinophils % Pleural Basophils Pleural Lymphocytes % % Pleural Monocytes % % Pleural Other Cells % Pleural Total Protein (No Ref Range) g/dL Pleural LDH (No Ref Range) Units/L A. baumannii (PCR) Not Detected (Not Detect) Claribel albicans (PCR) Not Detected (Not Detect) C. glabrata (PCR) Not Detected (Not Detect) C. krusei (PCR) Not Detected (Not Detect) C. parapsilosis (PCR) Not Detected (Not Detect) C. tropicalis (PCR) Not Detected (Not Detect) Enterobacteriac sp PCR Not Detected (Not Detect) E. cloacae complex PCR Not Detected (Not Detect) Enterococcus sp PCR Not Detected (Not Detect) E. coli (PCR) Not Detected (Not Detect) H. influenzae (PCR) Not Detected (Not Detect) Hepatitis A IgM Ab (Nonreactive) Hep Bs Antigen (Nonreactive) Hep B Core IgM Ab (Nonreactive) Hepatitis C Ab Screen (Nonreactive) HIV Ag/Ab Combo Qual (Nonreactive) Klebsiella oxytoca PCR Not Detected (Not Detect) Klebsiella pneumoniae Not Detected (Not Detect) List. monocytogenes PCR Not Detected (Not Detect) N. meningitidis (PCR) Not Detected (Not Detect) Proteus species (PCR) Not Detected (Not Detect) Serratia marcescens PCR Not Detected (Not Detect) Staphylococcus sp PCR DETECTED A (Not Detect) Staph aureus (PCR) DETECTED A (Not Detect) mecA-Methicil Res Gene DETECTED A (Not Detect) Streptococcus sp PCR Not Detected (Not Detect) Group A Strep DNA Not Detected (Not Detect) Group B Strep (PCR) Not Detected (Not Detect) Strep pneumoniae (PCR) Not Detected (Not Detect) P. aeruginosa (PCR) Not Detected (Not Detect) TB (QFT) Gold In Tube INDETERMINATE (Negative) TB Test (QFT) Nil 0.03 IU/mL TB Test Mitogen - Nil 0.04 IU/mL Angi/B-Vanco Res Genes N/A (Not Detect) KPC (blaKPC) Detect PCR N/A (Not Detect) 03/18/17 03/17/17 03/15/17 Range/Units 13:23 03:25 05:47 Urine Test (Negative) Pleural Fluid Volume mL Pleural Appearance (Clear) Pleural RBC (0.000 - 0.002) M/mcL Pleural Tot Nuc Cell (0-1000) TNC/mcL Pleural Neutrophils % Pleural Band Neuts Pleural Eosinophils % Pleural Basophils Pleural Lymphocytes % % Pleural Monocytes % % Pleural Other Cells % Pleural Total Protein (No Ref Range) g/dL Pleural LDH (No Ref Range) Units/L A. baumannii (PCR) Not Detected Not Detected Not Detected (Not Detect) Claribel albicans (PCR) Not Detected Not Detected Not Detected (Not Detect) C. glabrata (PCR) Not Detected Not Detected Not Detected (Not Detect) C. krusei (PCR) Not Detected Not Detected Not Detected (Not Detect) C. parapsilosis (PCR) Not Detected Not Detected Not Detected (Not Detect) C. tropicalis (PCR) Not Detected Not Detected Not Detected (Not Detect) Enterobacteriac sp PCR Not Detected Not Detected Not Detected (Not Detect) E. cloacae complex PCR Not Detected Not Detected Not Detected (Not Detect) Enterococcus sp PCR Not Detected Not Detected Not Detected (Not Detect) E. coli (PCR) Not Detected Not Detected Not Detected (Not Detect) H. influenzae (PCR) Not Detected Not Detected Not Detected (Not Detect) Hepatitis A IgM Ab (Nonreactive) Hep Bs Antigen (Nonreactive) Hep B Core IgM Ab (Nonreactive) Hepatitis C Ab Screen (Nonreactive) HIV Ag/Ab Combo Qual (Nonreactive) Klebsiella oxytoca PCR Not Detected Not Detected Not Detected (Not Detect) Klebsiella pneumoniae Not Detected Not Detected Not Detected (Not Detect) List. monocytogenes PCR Not Detected Not Detected Not Detected (Not Detect) N. meningitidis (PCR) Not Detected Not Detected Not Detected (Not Detect) Proteus species (PCR) Not Detected Not Detected Not Detected (Not Detect) Serratia marcescens PCR Not Detected Not Detected Not Detected (Not Detect) Staphylococcus sp PCR Not Detected DETECTED A DETECTED A (Not Detect) Staph aureus (PCR) DETECTED A DETECTED A DETECTED A (Not Detect) mecA-Methicil Res Gene DETECTED A DETECTED A DETECTED A ( Not Detect) Streptococcus sp PCR Not Detected Not Detected Not Detected (Not Detect) Group A Strep DNA Not Detected Not Detected Not Detected (Not Detect) Group B Strep (PCR) Not Detected Not Detected Not Detected (Not Detect) Strep pneumoniae (PCR) Not Detected Not Detected Not Detected (Not Detect) P. aeruginosa (PCR) Not Detected Not Detected Not Detected (Not Detect) TB (QFT) Gold In Tube (Negative) TB Test (QFT) Nil IU/mL TB Test Mitogen - Nil IU/mL Angi/B-Vanco Res Genes Not Detected Not Detected N/A (Not Detect) KPC (blaKPC) Detect PCR Not Detected Not Detected N/A (Not Detect) 03/14/17 03/14/17 03/14/17 Range/Units 13:30 05:23 05:23 Urine Test (Negative) Pleural Fluid Volume 500.0 mL Pleural Appearance Bloody A (Clear) Pleural RBC 0.091 H (0.000 - 0.002) M/mcL Pleural Tot Nuc Cell 6363 H (0-1000) TNC/mcL Pleural Neutrophils 80.0 % Pleural Band Neuts Test Not Performed Pleural Eosinophils 2.0 % Pleural Basophils Test Not Performed Pleural Lymphocytes % 15.0 % Pleural Monocytes % 3.0 % Pleural Other Cells % Test Not Performed Pleural Total Protein 3.3 (No Ref Range) g/dL Pleural LDH 1016 (No Ref Range) Units/L A. baumannii (PCR) (Not Detect) Claribel albicans (PCR) (Not Detect) C. glabrata (PCR) (Not Detect) C. krusei (PCR) (Not Detect) C. parapsilosis (PCR) (Not Detect) C. tropicalis (PCR) (Not Detect) Enterobacteriac sp PCR (Not Detect) E. cloacae complex PCR (Not Detect) Enterococcus sp PCR (Not Detect) E. coli (PCR) (Not Detect) H. influenzae (PCR) (Not Detect) Hepatitis A IgM Ab Nonreactive (Nonreactive) Hep Bs Antigen Nonreactive (Nonreactive) Hep B Core IgM Ab Nonreactive (Nonreactive) Hepatitis C Ab Screen Reactive H (Nonreactive) HIV Ag/Ab Combo Qual Nonreactive (Nonreactive) Klebsiella oxytoca PCR (Not Detect) Klebsiella pneumoniae (Not Detect) List. monocytogenes PCR (Not Detect) N. meningitidis (PCR) (Not Detect) Proteus species (PCR) (Not Detect) Serratia marcescens PCR (Not Detect) Staphylococcus sp PCR (Not Detect) Staph aureus (PCR) (Not Detect) mecA-Methicil Res Gene (Not Detect) Streptococcus sp PCR (Not Detect) Group A Strep DNA (Not Detect) Group B Strep (PCR) (Not Detect) Strep pneumoniae (PCR) (Not Detect) P. aeruginosa (PCR) (Not Detect) TB (QFT) Gold In Tube (Negative) TB Test (QFT) Nil IU/mL TB Test Mitogen - Nil IU/mL Angi/B-Vanco Res Genes (Not Detect) KPC (blaKPC) Detect PCR (Not Detect) Exam - Constitutional Vitals: Temp Pulse Resp BP Pulse Ox 98.7 F 105 18 132/81 94 03/24/17 08:07 03/24/17 08:07 03/24/17 08:07 03/24/17 08:07 03/24/17 08:07 General appearance: average body habitus, cooperative, no acute distress - Head Head exam: Present: atraumatic, normal inspection, normocephalic - Eye Eye exam: Present: EOMI, normal appearance, PERRL Pupils: Present: normal accommodation Additional comments: No subconjunctival hemorrhage noted. - ENT ENT exam: Present: mucous membranes moist - Neck Neck exam: Present: normal inspection - Respiratory Respiratory exam: Present: CTAB. Absent: rales, respiratory distress, rhonchi, wheezes - Cardiovascular Cardiovascular exam: Present: RRR, +S1, +S2 - GI/Abdominal GI/Abdominal exam: Present: normal bowel sounds, soft. Absent: distended, tenderness - Extremities Exam Extremities exam: Present: normal inspection. Absent: joint swelling, pedal edema, tenderness Additional comments: No endocarditis stigmata noted. - Expanded Back Exam 1 - Tenderness 2 - Tenderness - Neurological Exam Neurological exam: Present: alert, oriented X3, no focal deficits - Psychiatric Psychiatric exam: Present: normal affect, normal mood - Skin Skin exam: Present: dry, intact, normal color, warm Consult Discharge Plan - Plan Referrals: Afsaneh Worley, CONSULTING SOLUTION MANAGER [Advanced Practice Nurse] - (PLEASE TAKE WITH YOU TO YOUR APPOINTMENT A MONTH'S WORTH OF INCOME, THEY DO A SLIDING SCALE OF WHAT YOU WOULD HAVE TO PAY. PLEASE SHOW UP 20 MINS. EARLY FOR YOUR APPOINTMENT TO FILL OUT PAPER WORK. IF YOU NEED TO CANCEL PLEASE CALL [phone] WITH IN 24 HOURS OF YOUR APPOINTMENT TIME.) - Attending Attestation I examined this patient and my medical decision-making was reviewed with the Resident Physician. I agree with the documented findings, disposition and treatment plan as described except to the extent set forth below.
--- NOTE | 2017-03-24 10:36 | Internal Med Progress Note ---
<Tripp Medina - Last Filed: 03/24/17 15:19> Date of Encounter: 03/24/17 - Assessment and plan (1) Hepatitis C Current Visit: Yes Status: Chronic Qualifiers: Viral hepatitis chronicity: chronic Hepatic coma status: without hepatic coma Qualified Code(s): B18.2 - Chronic viral hepatitis C (2) Severe sepsis Current Visit: Yes Status: Acute (3) Septic embolism Current Visit: Yes Status: Acute (4) Loculated pleural effusion Current Visit: Yes Status: Acute (5) Infective endocarditis Current Visit: Yes Status: Acute Qualifiers: Infective endocarditis organism: bacterial Chronicity: acute Qualified Code(s): I33.0 - Acute and subacute infective endocarditis (6) Myositis Current Visit: Yes Status: Acute Qualifiers: Myositis type: infective Myositis location: other site Qualified Code(s) : M60.08 - Infective myositis, other site (7) IV drug user Current Visit: Yes Status: Chronic (8) Septic arthritis Current Visit: Yes Status: Acute Qualifiers: Septic arthritis location: vertebra Septic arthritis organism: staphylococcal Qualified Code(s): M00.08 - Staphylococcal arthritis, vertebrae (9) Sepsis due to methicillin resistant Staphylococcus aureus (MRSA) Current Visit: Yes Status: Acute (10) Reaction to QuantiFERON-TB test Current Visit: Yes Status: Acute - Constitutional Vitals: Temp Pulse Resp BP Pulse Ox 98 F 97 16 129/86 96 03/24/17 13:10 03/24/17 13:10 03/24/17 13:10 03/24/17 13:10 03/24/17 13:10 Internal Medicine: Result - Labs CBC & Chem 7: 03/24/17 07:01 03/24/17 05:50 Labs: Short CBC 03/24/17 Range/Units 07:01 WBC 19.7 H (4.3-11.1) K/mcL Hgb 8.1 L (11.5-15.4) g/dL Hct 25.6 L (35.3-44.9) % Plt Count 416 H (140-400) K/mcL Neutrophils # 16.8 H (1.6-8.9) K/mcL BMP 03/24/17 05:50 Sodium 136 Potassium 3.4 L Chloride 100 Carbon Dioxide 30 H BUN 5 L Creatinine 0.72 Glucose 79 Calcium 8.1 L - ABG Interpretation ABG results: PT/INR, D-dimer PT 15.2 Seconds (9.4-12.1) H 03/20/17 04:48 Consult Discharge Plan - Plan Referrals: Afsaneh Worley, INFANT [employer]ABYSITTER [Advanced Practice Nurse] - (PLEASE TAKE WITH YOU TO YOUR APPOINTMENT A MONTH'S WORTH OF INCOME, THEY DO A SLIDING SCALE OF WHAT YOU WOULD HAVE TO PAY. PLEASE SHOW UP 20 MINS. EARLY FOR YOUR APPOINTMENT TO FILL OUT PAPER WORK. IF YOU NEED TO CANCEL PLEASE CALL [phone] WITH IN 24 HOURS OF YOUR APPOINTMENT TIME.) - Attending Attestation I examined this patient and my medical decision-making was reviewed with the Resident Physician on 03/24/17. I agree with the documented findings, disposition and treatment plan as described except to the extent set forth below. Patient seen and reviewed at the bedside 36 F with IVDA being managed for severe sepsis secondary to MRSA [place] valve endocarditis with septic emboli to the lungs and L spine She reprts feeling nauseated with malaise today She remains tachycardic and her WBC is uptrending She is on IV Vancomycin Her blood culture from 03/21/17 is negative X 2 sets PPD is ~24 hrs and unreactive Physical exam: VS-low grade fever within 24 hrs 100.0. 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 SW for placement Rest as in resident physician's documentation <Geoff Cardona - Last Filed: 03/24/17 18:06> Date of Encounter: 03/24/17 Time of Encounter: 09:45 - Assessment and plan (1) Bacteremia Current Visit: Yes Status: Acute Assessment and plan: Causative organism MRSA. Source likely IV drug use. Complicated due to septic emboli in the lungs. The following blood cultures were drawn: -03/13/17 are positive 2/2 sets for MRSA. -03/15/17 are positive 1/2 sets for MRSA. -03/17/17 are positive 2/2 sets. -03/18/17 came back positive this morning 2/2 sets for MRSA again. -03/21/17 are NGTD x 2 sets. The patient has two major and two minor Modified Lares's Criteria. TTE completed 03/13/17 showed a mobile echodensity on the tricuspid valve consistent with vegetation. Repeat echo has been ordered on 03/24/17. Continue Vancomycin IV. (2) Severe sepsis Current Visit: Yes Status: Acute Assessment and plan: Patient met septic criteria on admission. Cardiac revealed a mobile echodensity on the tricuspid valve consistent with vegetation. 03/13: Blood cultures are positive for GPC, PCR shows MRSA. CT of the abdomen and pelvis revealed a right piriformis muscle myositis. -The patient's white count has begun to rise. -From 03/18 03/22, patient's white count was going down. -However, patient's white count today was 19.7. -May consider additional imaging. -Patient's heart rate this morning was 105. (3) Acute respiratory failure with hypoxemia Current Visit: Yes Status: Acute Assessment and plan: 2/2 to pleural effusion and embolic lung cavitations. 03/13: -CTA of chest showed no PE, numerous scattered bilateral pulmonary nodules many of which demonstrate central cavitation, moderate right and small left pleural effusions. -Echocardiogram revealed LVEF 55%, mobile echodensity attached to the tricuspid valve consistent with a vegetation, severe tricuspid regurgitation. 03/14: -Patient underwent right-sided thoracentesis with removal of 450 ml of exudative pleural fluid. 03/18: -CT chest showed bilateral pleural effusions, partially located on the right. -Airspace disease in the middle lower lingula. -Multiple solid and cavitary nodules. -Patient is requiring 2 L of oxygen to keep saturations above 90%. -Continue oxygen supplementation, nebulizations, IV vancomycin. (4) Infective endocarditis Current Visit: Yes Status: Acute Assessment and plan: Causative organism MRSA. -TTE completed 03/13/17 showed mobile echodensity on the tricuspid valve consistent with vegetation. -Likely secondary to MRSA bacteremia. -Antibiotic recommendations as above. Repeat TTE and EKG Qualifiers: Infective endocarditis organism: bacterial Chronicity: acute Qualified Code(s): I33.0 - Acute and subacute infective endocarditis (5) Loculated pleural effusion Current Visit: Yes Status: Acute Assessment and plan: CT of the chest showed a moderate right and small left pleural effusions that are partially loculated. -IR consulted. Status post right thoracentesis 03/14/17. 450ml red fluid drained per IR nurse notes. Appears exudative, but culture is negative. -Left thoracentesis cancelled due to the fact that it is very small. -Repeat CT scan completed 03/18/17 shows bilateral pleural effusions, partially loculated on the right, but no convincing evidence for empyema. -On 03/21/17, patient had diminished breath sounds on the right side on physical examination. -Subsequent examinations were not significant for diminished breath sounds, however, expiratory wheezing present right lung farmer. -Given the persistent leukocytosis, may need to consider re-imaging to evaluate again. -Pulmonology following. (6) Myositis Current Visit: Yes Status: Acute Assessment and plan: Right piriformis muscle myositis. Qualifiers: Myositis type: infective Myositis location: other site Qualified Code(s) : M60.08 - Infective myositis, other site (7) Septic embolism Current Visit: Yes Status: Acute Assessment and plan: CT scan of the chest shows bilateral pulmonary nodules with central cavitation concerning for septic emboli versus atypical infection. -Likely secondary to R-sided endocarditis. -Pulmonology was consult, believes that these nodules are likely septic emboli. -Quantiferon indeterminate. Patient has been placed in respiratory isolation. -Repeat Quantiferon has been ordered. -PPD placed 03/23/17. If negative at 48 hours, discontinue respiratory isolation. -Continue antibiotics. -Patient denies having any problems breathing this morning. - Subjective Interval history: Patient was seen and examined at bedside this morning. She states that last night, she felt nauseous and had several episodes of vomiting. Patient attributes this to drinking Ensure that had been sitting on the table for the entire day. Patient states that this morning, she still feels somewhat sick. She is also complaining of increased pain and states that all of her medications were discontinued for pain. She states that the only thing that she is receiving for pain at the moment is half hydrocodone. Patient states that she felt like she may have fever, but she cannot tell if this is simply due to being placed in a new room. She currently denies any breathing issues or GI distress. - Constitutional Vitals: Temp Pulse Resp BP Pulse Ox 98.7 F 105 18 132/81 94 03/24/17 08:07 03/24/17 08:07 03/24/17 08:07 03/24/17 08:07 03/24/17 08:07 General appearance: Present: cooperative, A&O X 3, pleasant, no acute distress, answers questions appropriately - Neck Neck exam general surgery: Present: supple, trachea midline. Absent: lymphadenopathy - Respiratory Additional comments: Expiratory wheezes present on the right side in all lung farmer. - Cardiovascular Cardiovascular exam: Present: +S1, +S2, systolic murmur. Absent: diastolic murmur, gallop, RRR, rubs Additional comments: Systolic murmur appreciated in the tricuspid area. - Psychiatric Psychiatric exam: Present: normal affect, normal mood - Skin Skin exam: Present: dry, intact Internal Medicine: Result - Labs CBC & Chem 7: 03/24/17 07:01 03/24/17 05:50 Labs: Short CBC 03/24/17 Range/Units 07:01 WBC 19.7 H (4.3-11.1) K/mcL Hgb 8.1 L (11.5-15.4) g/dL Hct 25.6 L (35.3-44.9) % Plt Count 416 H (140-400) K/mcL Neutrophils # 16.8 H (1.6-8.9) K/mcL BMP 03/24/17 05:50 Sodium 136 Potassium 3.4 L Chloride 100 Carbon Dioxide 30 H BUN 5 L Creatinine 0.72 Glucose 79 Calcium 8.1 L - ABG Interpretation ABG results: PT/INR, D-dimer PT 15.2 Seconds (9.4-12.1) H 03/20/17 04:48
--- NOTE | 2017-03-24 16:12 | Electrocardiograph Report ---
[address] [address] Test Date: 2017-03-24 Pat Name: Breanna Silva Department: 112 Room: 2A11 Gender: F Student Nurse: : [id number] Requested By: Geoff Cardona Order Number: [id number] Reading MD: Rylie Amato Measurements Intervals [place] Rate: 88 P: 19 MN: 146 QRS: 7 QRSD: 99 T: -9 QT: 367 QTc: 413 Interpretive Statements SINUS RHYTHM Electronically Signed On 03-24-2017 16:10:38 EDT by Rylie Amato
[2017-03-25] MEDS: *HR* OxyCODONE Immed Rel 5 MG TABLET PO PRN (00:13)
[2017-03-25] MEDS: Acetaminophen 325 MG TABLET PO PRN (00:13)
[2017-03-25] MEDS: Ondansetron 4 MG/2 ML VIAL IVP PRN ×2 (00:13→13:19)
[2017-03-25] MEDS: *HR* Enoxaparin 40 MG/0.4 ML SYRINGE SQ SCH (06:49)
[2017-03-25 07:44] LABS: Basophils # 0.1 K/mcL (0.0-0.2); Basophils % 0.4 %; Eosinophils # 0.2 K/mcL (0.0-0.6); Eosinophils % 1.2 %; Hemoglobin 7.3 g/dL (11.5-15.4); Lymphocytes # 2.1 K/mcL (0.6-4.6); Lymphocytes % 12.8 %; Mean Corpuscular HGB Conc 31.7 g/dL (31.6-35.5); Mean Corpuscular Volume 88.1 fL (83.0-100.0); Mean Platelet Volume 8.3 fL (9.4-12.4); Monocytes # 1.2 K/mcL (0.0-1.3); Platelet Count 445 K/mcL (140-400); Red Blood Count 2.61 M/mcL (3.82-4.97); Red Cell Distribution Width 14.6 % (11.5-14.5); Segmented Neutrophils % 77.6 %
[2017-03-25 07:57] LABS: BUN/Creatinine Ratio 6 (6-26); Carbon Dioxide 29 mEq/L (19-29); Chloride 100 mEq/L (98-109); Glucose 84 mg/dL (70-99); Osmolality,Calculated 278 (280-300); Potassium 3.9 mEq/L (3.5-4.5); Sodium 136 mEq/L (136-145); eGFR For African Americans > 60 (> 60); eGFR For Non-African Americans > 60 (> 60)
[2017-03-25 08:01] LABS: Blood Urea Nitrogen 4 mg/dL (7-20)
[2017-03-25] MEDS: Vancomycin 1,250 MG in D5% in Water 250 ML IVPB SCH (08:40)
[2017-03-25] MEDS: Magnesium Oxide 400 MG TABLET PO SCH (08:40)
[2017-03-25 12:22] VITALS: BP 136/90
--- NOTE | 2017-03-25 12:50 | Transfer Summary ---
Date of Encounter: 03/25/17 Time of Encounter: 10:30 Transfer Discharge Sum: Diag - Discharge Diagnosis (1) Hepatitis C Status: Chronic (2) Severe sepsis Status: Acute (3) Septic embolism Status: Acute (4) Loculated pleural effusion Status: Acute (5) Infective endocarditis Status: Acute (6) Myositis Status: Acute (7) IV drug user Status: Chronic (8) Septic arthritis Status: Acute (9) Sepsis due to methicillin resistant Staphylococcus aureus (MRSA) Status: Acute (10) Reaction to QuantiFERON-TB test Status: Acute Transfer Discharge Sum: Med - Medications Active and Home Medications: Home Medications No Known Home Drugs 03/13/17 [History Confirmed 03/13/17] Active Medications Acetaminophen (Tylenol) 650 mg PO Q6HR PRN PRN Reason: Mild Pain (1-3) Stop: 09/12/17 16:51 Last Admin: 03/25/17 00:13 Dose: 650 mg Dextrose/Water (Dextrose 50% (Syg)) 25 ml IVP AD PRN PRN Reason: Hypoglycemia Stop: 09/13/17 14:56 Enoxaparin Sodium (Lovenox) 40 mg SQ 0600 MOHAN PRN Reason: Protocol Stop: 09/18/17 06:01 Last Admin: 03/25/17 06:49 Dose: 40 mg Glucagon (Glucagen) 1 mg IM ONCE PRN PRN Reason: Hypoglycemia Stop: 09/13/17 14:56 Glucose (Gluctose) 15 gm PO ONCE PRN PRN Reason: Hypoglycemia Stop: 09/13/17 14:56 Glucose (Gluctose) 30 gm PO ONCE PRN PRN Reason: Hypoglycemia Stop: 09/13/17 14:56 Dextrose (Dextrose 5%) 1,000 mls @ 100 mls/hr IVC .Q10H PRN PRN Reason: HYPOGLYCEMIA Stop: 09/13/17 14:56 Vancomycin HCl 1,250 mg/ (Dextrose) 250 mls @ 166.667 mls/hr IVPB Q12H MOHAN Stop: 09/14/17 06:01 Last Admin: 03/25/17 08:40 Dose: 166.667 mls/hr Ibuprofen (Motrin) 600 mg PO Q8HR PRN; Protocol PRN Reason: Moderate to Severe Pain (4-10) Stop: 09/22/17 13:57 Last Admin: 03/24/17 09:46 Dose: 600 mg Levalbuterol HCl (Xopenex) 0.63 mg IH [id number] PRN PRN Reason: Shortness Of Breath/Wheezing Stop: 09/16/17 02:01 Lidocaine HCl (Lidoderm 5% Patch) 1 each TP Q24H [facility] Stop: 09/22/17 14:01 Last Admin: 03/24/17 14:54 Dose: 1 each Magnesium Oxide (Mag-Ox) 800 mg PO BID MOHAN PRN Reason: Protocol Stop: 09/19/17 21:01 Last Admin: 03/25/17 08:40 Dose: 800 mg Naloxone HCl (Narcan) 0.4 mg IVP Q2MIN PRN PRN Reason: Opioid Reversal Stop: 09/12/17 16:51 Omeprazole (Prilosec) 20 mg PO DAILY@0630 [facility] PRN Reason: Protocol Stop: 09/13/17 06:31 Last Admin: 03/25/17 06:19 Dose: Not Given Ondansetron HCl (Zofran) 4 mg IVP Q4HR PRN PRN Reason: Nausea And Vomiting Stop: 09/17/17 10:50 Last Admin: 03/25/17 00:13 Dose: 4 mg Oxycodone HCl (Roxicodone) 2.5 mg PO Q6HR PRN PRN Reason: Moderate to Severe Pain (4-10) Stop: 09/20/17 09:32 Last Admin: 03/25/17 00:13 Dose: 2.5 mg Transfer Discharge Sum: Data Procedures and tests throughout hospitalization: Pending Orders 03/13/17 16:50 Admit as Inpatient Routine Acetaminophen [Tylenol] 650 mg PO Q6HR PRN Naloxone [Narcan] 0.4 mg IVP Q2MIN PRN Resuscitation Status: Active [RES] Routine 03/13/17 16:51 Cardiac Monitoring Med/Surg [RC] .CONT Oxygen via nasal cannula Nasal Cannula 2 lpm 03/13/17 16:54 Consult to Pulmonology [CONS] Routine 03/14/17 06:30 Omeprazole [PriLOSEC] 20 mg PO DAILY@0630 03/14/17 08:58 Consult to Infectious Diseases [CONS] Routine 03/14/17 11:38 Consult to Interventional Radiology [CONS] Routine 03/14/17 13:30 AFB Smear [TB] Routine 03/14/17 14:55 Hypoglycemia Treatment Orders [RC] .once D5% in Water [Dextrose 5%] 1,000 ml IVC 100 mls/hr Dextrose 50 % in Water (Syg) [Dextrose 50% (Syg)] 25 ml IVP AD PRN Dextrose Gel [Gluctose] 15 gm PO ONCE PRN Dextrose Gel [Gluctose] 30 gm PO ONCE PRN Glucagon, Human Recombinant [GlucaGen] 1 mg IM ONCE PRN 03/15/17 04:00 AFB Culture, Body Fluid [TB] AM 0400 03/16/17 09:53 Consult to Interventional Radiology [CONS] Routine 03/16/17 18:00 Vancomycin [Vancocin] 1,250 mg D5% in Water [Dextrose 5%] 250 ml IVPB Q12H 03/18/17 10:49 Ondansetron [Zofran] 4 mg IVP Q4HR PRN 03/19/17 06:00 Enoxaparin [Lovenox] 40 mg SQ 0600 03/19/17 08:59 Transfusion, red blood cells [RC] .STAT 03/20/17 11:24 Consult to Diesel Automotive Technician [CONS] Routine 03/20/17 21:00 Magnesium Oxide [Mag-Ox] 800 mg PO BID 03/21/17 09:31 OxyCODONE Immed Rel [Roxicodone] 2.5 mg PO Q6HR PRN 03/21/17 13:40 Culture,Blood [BC] Routine 03/22/17 13:23 Levalbuterol Neb [Xopenex] 0.63 mg IH [id number] PRN 03/23/17 11:09 QuantiFERON-TB Gold In-Tube Routine 03/23/17 13:56 Ibuprofen [Motrin] 600 mg PO Q8HR PRN 03/23/17 14:00 Lidocaine Patch [Lidoderm 5% patch] 1 each TP Q24H 03/24/17 11:36 12 lead ECG assessment [RC] NOW 03/24/17 12:31 Culture,Blood [BC] Routine 03/25/17 Breakfast Regular Diet 03/26/17 04:00 CBC [Complete Blood Count] [HEME] AM 0400 Chem 7 [Basic Metabolic Panel] AM 0400 03/27/17 04:00 CBC [Complete Blood Count] [HEME] AM 0400 Chem 7 [Basic Metabolic Panel] AM 0400 03/28/17 04:00 CBC [Complete Blood Count] [HEME] AM 0400 Chem 7 [Basic Metabolic Panel] AM 0400 - Impressions ITS Impressions Chest CTA 03/13/17 19:00 IMPRESSION: 1. No evidence of pulmonary thromboembolism. 2. Numerous scattered bilateral pulmonary nodules many of which demonstrate central cavitation. The differential includes septic pulmonary emboli and atypical infection such as tuberculosis. Cavitary metastatic disease is considered less likely given the patient's age. 3. Moderate right and small left pleural effusions that may be partially loculated with empyema not excluded. D/ / Alex Medrano MD / Alex Medrano MD Interpreting Provider: Alex Medrano MD Lumbar Spine CT 03/13/17 19:00 IMPRESSION: There is an old left L2 transverse process fracture. Fracture deformity of the left L3 transverse process is noted as well. The without callus formation, the possibility of an acute fracture at this level should be considered. No additional acute osseous abnormality noted Soft tissues and canal limited due to images presented on PACs in the bone algorithm only. D/ / Kem Hodgson / Kem Hodgson Interpreting Provider: Kem Hodgson Thoracic Spine CT 03/13/17 19:00 IMPRESSION: Unremarkable CT of the thoracic spine. D/ / Jose L Fonseca MD / Jose L Fonseca MD Interpreting Provider: Jose L Fonseca MD Thoracentesis Ultrasound 03/14/17 09:59 IMPRESSION: 1. Successful ultrasound guided right thoracentesis. D/ / Perry Corbett MD / Perry Corbett MD Interpreting Provider: Perry Corbett MD Chest X-Ray 03/14/17 13:48 IMPRESSION: 1. No pneumothorax. 2. Unchanged bilateral pulmonary nodular opacities and pleural effusions. D/ / Alex Medrano MD / Alex Medrano MD Interpreting Provider: Alex Medrano MD Lumbar Spine MRI 03/15/17 16:53 IMPRESSION: 1. Severely motion limited evaluation despite multiple repeat imaging attempts. 2. Partially imaged marrow edema and enhancement about the anterior left sacroiliac joint with suspected adjacent soft tissue enhancing fluid collection suspicious for septic left sacroiliac arthritis and abscess. CT or MRI of the pelvis with contrast is recommended for evaluation when the patient is clinically able to tolerate further imaging. 3. No evidence of epidural abscess. D/ / Vicente Musa MD / Vicente Musa MD Interpreting Provider: Vicente Musa MD Pelvis CT 03/16/17 13:30 IMPRESSION: 1. No discrete drainable fluid collection in or around the left SI joint. 2. Diffuse mild body wall edema. 3. Colonic diverticulosis without acute inflammatory changes. 4. Small amount of free fluid in the pelvis. D/ / 03/16/2017 15:09:45 Genesis Anderson MD / earnoovi Interpreting Provider: Genesis Anderson MD Chest X-Ray 03/18/17 12:37 IMPRESSION: Diffuse airspace disease, worse compared to prior study and compatible with diffuse edema D/ / Joey Allen MD / Joey Allen MD Interpreting Provider: Joey Allen MD Chest CT 03/18/17 21:53 IMPRESSION: 1. Bilateral pleural effusions, partially loculated on the right. No convincing evidence for empyema is seen. 2. New airspace disease in the middle lobe and lingula could represent atelectasis or pneumonia. 3. Multiple solid and cavitary nodules are again seen likely representing septic emboli. 4. Pericardial effusion. D/ / Gurpreet Mckeon MD / Gurpreet Mckeon MD Interpreting Provider: Gurpreet Mckeon MD Chest CT 03/25/17 08:08 IMPRESSION: 1. Multifocal pulmonary nodules bilaterally many of which are partially cavitary. Statistically, this is most likely related to multifocal infection/septic emboli. Theoretically, metastatic disease with squamous cell carcinoma can cause cavitation. Clinical correlation and follow-up studies recommended. 2. Moderate right-sided pleural effusion and small left-sided pleural effusion not significantly changed from the previous exam. 3. Compressive atelectasis of both lungs. 4. No pneumothorax. No significant interval change. D/ / Jem Lenz MD / Jem Lenz MD Interpreting Provider: Jem Lenz MD Transfer Discharge Sum: Prov Date of admission: 03/13/17 15:31 Primary care physician: PCP NONE Admitting clinician: Romi Mazariegos Attending physician on admission: Romi Mazariegos Consults: 03/13/17 16:54 Consult to Pulmonology [CONS] Routine Consulting Provider: [facility] [place] Reason for Consult: B/L empyema, septic emboli Call Completed: Yes 03/14/17 08:58 Consult to Infectious Diseases [CONS] Routine Consulting Provider: Infectious Disease [place] Reason for Consult: loculated pleural effusions, lung cavitary lesions, septic emboli. Call Completed: Yes 03/14/17 11:38 Consult to Interventional Radiology [CONS] Routine Consulting Provider: Radiology Interventional [place] Reason for Consult: right pleural effusion Call Completed: No 03/16/17 09:53 Consult to Interventional Radiology [CONS] Routine Consulting Provider: Radiology Interventional [place]s Reason for Consult: septic left sacroiliac arthritis and abscess. consult for arthrocentesis/aspiration of fluid collection. Call Completed: No 03/20/17 11:24 Consult to Diesel Automotive Technician [CONS] Routine Reason for SW Consult: Placement for IV abx; IV drug abuse Attending physician on discharge: Tripp Medina Discharging clinician: Tripp Medina Anticipated date of transfer: 03/25/17 Receiving physician/facility: [facility] Transfer Discharge Sum: A/P - Plan Functional capacity at transfer: independent ambulation Overall status at transfer: patient is not back to baseline Disposition: Transfer Critical Access Hosp Transfer Discharge Sum: Hosp Hospital course: 36 year old female with past medical history of hep C, anxiety, and depression, IVD use. The patient presented to the emergency department at [facility] on 03/13/17 after she called EMS with complaints of fever and severe back pain and weakness for about 2 weeks prior to admission that had continued to get worse. Upon arrival, the patient had a fever 101.7. She was tachycardic and tachypneic and have leukocytosis with neutrophilic predominance. Additional laboratory studies revealed elevated bilirubin at 2.3 with mildly elevated liver enzymes. Lactic acid was normal. A chest x-ray completed in the emergency department showed bilateral lung infiltrates with suspected bilateral pleural effusions. A CT the abdomen and pelvis was also completed that showed bibasilar cavitary pulmonary nodules, more prominent on the left concerning for septic emboli, moderate loculated right effusion, and mild left loculated effusion consistent with empyema. Additional findings were consistent with right piriformis myositis and a right hemipelvic soft tissue induration concerning for cellulitis or possible internal iliac vein DVT with thrombophlebitis. A dedicated CT of the chest was completed that was negative for pulmonary embolism, but did show bilateral pulmonary nodules with central cavitation concerning for septic emboli versus atypical infection such as tuberculosis. Additionally, there was a moderate right and small left pleural effusion that appears to be partially loculated. Blood cultures were obtained in the emergency department prior to the initiation of IV antibiotics. Additionally, urinalysis was obtained that revealed pyuria, but her urine culture was negative. The patient was transferred here to [facility] for further evaluation and treatment. Since admission, the patient has undergone bilateral lower extremity venous Doppler that were negative for DVT. Her blood cultures have come back +2 out of 2 sets for MRSA per PCR. The patient has been complaining of lower back pain, therefore, dedicated L-spine and C-spine CAT scans were done and were negative for any infectious etiology. Transthoracic echocardiogram 03/13/17 revealed a mobile echodensity on the tricuspid valve consistent with a vegetation. Pulmonology was consulted and recommended continuation of antibiotics. The patient was scheduled for thoracentesis but fluid was too small to be drained at that time. Her fever has improved in terms of high grade, she continues to have low grade fever and tachycardia, her leukocytosis is improving She had MRSA positive blood cultures in both bottles from 03/13 to 03/18 Her most recent blood culture on 03/21 is negative till date Her Vanco trough has been therapeutic Repeat ECHO done today 03/25 due to persistence of symptoms shows 1cm TV vegetation with severe TR. HEr repeat Chest CT shows moderate R pleural effusion and small L pleural effusion Patient had an intermediate Quantiferon gold testing, and has PPD was placed , read to be non-reactive so far. MRI of the L-spine showed findings concerning for possible septic left sacroiliac arthritis with abscess. CT scan negative for abscess HIV non-reactive. Known Hep C positive. Hep A and Hep B non-reactive. She had anemia, secondary to Sepsis, and had received 2 units of RBCs in this admission Patient is being transferred to [facility] due to persistence of her symptoms, complexity of her management, and she is qualifying for valvular surgery based on the size of her vegetation as well as presence of severe TR, persistence of fever and leukocytosis after 12 days on antibiotics. Plan of care discussed, verbalized understanding - Time Spent with Patient Total time spent providing and/or coordinating transfer services: Greater than 30 minutes Transfer Discharge Sum: Exam - Constitutional Vitals: Vital Signs Temp Pulse Resp BP Pulse Ox 03/25/17 12:00 98.7 F 107 15 136/90 93 03/25/17 08:45 97 03/25/17 07:26 97.9 F 89 15 127/82 97 03/25/17 04:20 98.3 F 106 20 125/80 92 03/25/17 00:03 100.6 F H 125 20 138/78 92 03/24/17 20:18 95 03/24/17 19:10 98.6 F 102 18 127/77 95 03/24/17 16:48 97.9 F 95 17 125/85 95 03/24/17 13:10 98 F 97 16 129/86 96 Intake and Output 03/24/17 03/25/17 03/25/17 23:59 07:59 15:59 Intake Total 490 / 490 480 / 480 Output Total 500 / 500 Balance -10 / -10 480 / 480 Intake: IV Fluids 250 / 250 Vancocin 1,250 MG In 250 / 250 Dextrose 5% 250 ML @ 166. 667 mls/hr IVPB Q12H [facility] Rx#:[id number] Oral 240 / 240 480 / 480 Output: Urine 500 / 500 Other: # Voids 2 Weight 78.471 kg Patient Weight 03/25/17 23:59 Weight 78.471 kg General appearance: febrile, mild distress - Head Head exam: Present: atraumatic - Eye Eye exam: Present: conjuntiva pink - ENT ENT exam: Present: mucous membranes moist - Neck Neck exam: Present: full ROM - Respiratory Respiratory exam: Present: rhonchi - Cardiovascular Cardiovascular exam: Present: +S1, +S2, systolic murmur - Extremities Exam Extremities exam: Present: normal capillary refill - Neurological Exam Neurological exam: Present: alert, oriented X3, no focal deficits, strengths equal and symetr throughout - Skin Skin exam: Present: dry
[2017-03-26 19:07] LABS: QuantiFERON Mitogen minus NIL 0.06 IU/mL
[2017-03-27 07:55] LABS: QuantiFERON NIL 0.03 IU/mL; QuantiFERON-TB Gold In-Tube INDETERMINATE (Negative)
== END 2017-03-25 15:41 | disposition other institution (70) | DRG 720 ==
LOC: SUATTDRO 15:31 → 2NNU 15:31 → 2ANU 03-16 11:46
PROVIDERS: ADMIT Internal Medicine; ATTEND Internal Medicine